=== PATIENT | male | born 1940 | race Caucasian/White ===

== ENCOUNTER 2020-07-07 07:10 | Outpatient (REF) | payer MEDICARE, SELFPAY ==
[2020-07-07 10:31] LABS: Prostate Specific Antigen 0.84 ng/mL (<0.05-4.0)
== END 2020-07-07 07:11 | disposition home or self-care (01) ==
LOC: HO.LAB 07:10
PROVIDERS: Visit Provider Urology
DX: N40.1 Benign prostatic hyperplasia with lower urinary tract symptoms (principal)
CPT/HCPCS: 84153

== ENCOUNTER → 2020-09-01 09:56 | Outpatient (BNVA) | payer MEDICARE, SELFPAY | PROVIDERS: Visit Provider Internal Medicine | DX: G47.33 Obstructive sleep apnea (adult) (pediatric) (principal); E66.9 Obesity, unspecified; Z99.89 Dependence on other enabling machines and devices | CPT/HCPCS: 99212 ==

== ENCOUNTER 2020-10-03 06:59 | Outpatient (REF) | payer MEDICARE, SELFPAY ==
[2020-10-03 07:44] LABS: MANUAL DIFF FLAG NO
[2020-10-03 07:47] LABS: Basophils Percent Auto 0.4 % (0-2); Eosinophils Absolute Auto 0.2 X10*3/uL (0.0-0.4); Eosinophils Percent Auto 2.8 % (0-4); Hematocrit 54.1 % (42-52); Hemoglobin 18.1 g/dl (14.0-18.0); Imm Gran Abs Auto 0.03 X10*3/uL (0.00-0.03); Imm Gran Pct Auto 0.4 % (0.0-0.4); Lymphocytes Absolute Auto 1.9 X10*3/uL (1.2-4.9); Lymphocytes Percent Auto 27.4 % (20-40); Mean Corpuscular HGB Conc 33.5 g/dl (31.0-36.0); Mean Corpuscular Hemoglobin 31.8 pg (27.0-33.0); Mean Corpuscular Volume 95.1 fL (80-98); Monocytes Absolute Auto 0.5 X10*3/uL (0.1-1.2); Neutrophils Absolute Auto 4.1 X10*3/uL (2.0-8.3); Platelet Count 177 X10*3/uL (160-400); Red Blood Count 5.69 X10*6/uL (4.60-5.80); Red Cell Distribution Width 13.1 % (11.0-16.0); White Blood Count 6.8 X10*3/uL (4.8-10.8)
[2020-10-03 08:01] LABS: Anion Gap 15 (12-20); Blood Urea Nitrogen 14 mg/dL (9-16); Calcium 9.2 mg/dL (8.4-10.2); Carbon Dioxide 27 mmol/L (22-29); Chloride 104 mmol/L (96-108); Estimated Glomerular Filt Rate > 60; Glucose Random 111 mg/dL (60-115); Potassium 4.1 mmol/l (3.3-5.1); Sodium 142 mmol/L (135-145)
== END 2020-10-03 07:00 | disposition home or self-care (01) ==
LOC: HO.LAB 06:59
PROVIDERS: Visit Provider Internal Medicine
DX: I10 Essential (primary) hypertension (principal); N40.0 Benign prostatic hyperplasia without lower urinary tract symptoms; E78.00 Pure hypercholesterolemia, unspecified
CPT/HCPCS: 36415; 80048; 85025

== ENCOUNTER 2021-01-22 11:25 | Outpatient (REF) | payer MEDICARE, SELFPAY ==
[2021-01-22 14:14] LABS: MANUAL DIFF FLAG NO
[2021-01-22 14:24] LABS: Basophils Percent Auto 0.5 % (0-2); Eosinophils Absolute Auto 0.1 X10*3/uL (0.0-0.4); Eosinophils Percent Auto 1.2 % (0-4); Hematocrit 52.7 % (42-52); Hemoglobin 17.6 g/dl (14.0-18.0); Imm Gran Abs Auto 0.04 X10*3/uL (0.00-0.03); Imm Gran Pct Auto 0.5 % (0.0-0.4); Lymphocytes Absolute Auto 1.4 X10*3/uL (1.2-4.9); Lymphocytes Percent Auto 18.2 % (20-40); Mean Corpuscular HGB Conc 33.4 g/dl (31.0-36.0); Mean Corpuscular Hemoglobin 31.5 pg (27.0-33.0); Mean Corpuscular Volume 94.4 fL (80-98); Mean Platelet Volume 10.1 fL (9.4-12.4); Monocytes Absolute Auto 0.6 X10*3/uL (0.1-1.2); Monocytes Percent Auto 7.6 % (2-11); Neutrophils Absolute Auto 5.4 X10*3/uL (2.0-8.3); Platelet Count 173 X10*3/uL (160-400); Red Blood Count 5.58 X10*6/uL (4.60-5.80); White Blood Count 7.5 X10*3/uL (4.8-10.8)
[2021-01-22 14:47] LABS: Alanine Aminotransferase 35 U/L (0-40); Albumin Level 3.9 g/dL (3.5-5.0); Alkaline Phosphatase 73 U/L (39-117); Anion Gap 13 (12-20); Aspartate Amino Transferase 27 U/L (5-37); Blood Urea Nitrogen 18 mg/dL (9-16); C Reactive Protein 1.14 mg/dL (< or = 0.50); Calcium 9.5 mg/dL (8.4-10.2); Carbon Dioxide 28 mmol/L (22-29); Chloride 105 mmol/L (96-108); Estimated Glomerular Filt Rate > 60; Glucose Random 100 mg/dL (60-115); Potassium 3.8 mmol/L (3.3-5.1); Sodium 142 mmol/L (135-145); Total Protein 7.1 g/dL (6.5-8.0)
== END 2021-01-22 11:26 | disposition home or self-care (01) ==
LOC: HO.10HDL 11:25
PROVIDERS: Visit Provider Internal Medicine
DX: I10 Essential (primary) hypertension (principal); R42 Dizziness and giddiness
CPT/HCPCS: 36415; 80053; 85025; 86140

== ENCOUNTER 2021-01-27 07:20 | Outpatient (REF) | payer MEDICARE, SELFPAY ==
--- NOTE | ~2021-01-27 | CT_ITS ---
EXAMINATION: CT HEAD WITHOUT CONTRAST CLINICAL INFORMATION: Right-sided vertigo. COMPARISON: Previous brain MRI March 2020. TECHNIQUE: Contiguous axial imaging was performed from the skull base to vertex without intravenous administration of contrast. This CT examination was performed using dose optimization techniques as appropriate, variously including the following: *Automated exposure control *Adjustment of mA and/or kV according to patient size (this includes techniques or standardized protocols for targeted exams where dose is matched to indication/reason for exam; i.e. extremities or head) *Use of iterative reconstruction technique DLP: 905 mGy-cm. FINDINGS: There is no evidence of an extra-axial collection. There is no evidence of intra-axial or extra-axial hemorrhage. Ventricles and extra-axial CSF spaces are prominent suggestive of mild generalized atrophy. There is nonspecific periventricular white matter disease. No mass, mass effect or infarct is seen. Review of bone windows is normal. There is a small polyp or mucous retention cysts in the right maxillary sinus. Visualized paranasal sinuses, mastoid air cells and middle ears are otherwise clear. CT/CT head/brain wo con IMPRESSION: Mild generalized atrophy and nonspecific periventricular white matter disease. No acute findings.
== END 2021-01-27 07:21 | disposition home or self-care (01) ==
LOC: HO.CT 07:20
PROVIDERS: PCP Internal Medicine; Visit Provider Internal Medicine
DX: H81.11 Benign paroxysmal vertigo, right ear (principal)
CPT/HCPCS: 70450

== ENCOUNTER 2021-03-09 08:00 | Outpatient (RCR) | payer MEDICARE, SELFPAY ==
[2021-03-03 10:18] VITALS: BP 125/75
--- NOTE | 2021-03-03 12:13 | MHC.PT.EP ---
[facility] [place] Office [place] Office [place] Office [address] [phone] F: [phone] F: [phone] F: [phone] F: [phone] Physical Therapy Plan of Care Date of Evaluation: Date of Surgery: NA Diagnosis: Vestibular rehab Assessment: Jon is a 80 year old male referred to PT for vestibular rehab . Pt reports of having sudden onset of vertigo about a month and half back. On PT examination he presented with nystgmus when looking to the L during smooth pursuit and saccades testing. He was positive in B roll test for nystagmus and vertigo. He is independent with all ADLS but avoids rolling in the bed to the R. He would benefit from skilled PT to address the aforementioned impairments and increase tolerance to rolling and looking to the R. Frequency and Duration: The patient will be seen 2/week for 4 weeks Short Term Goals: Patient to be educated on symptoms and indications to return to therapy when needed min 4 weeks. Pt will be negative for nystagmus or reports of vertigo in all diagnostic positions bilaterally to resolution of BPPV in 4 weeks. Long-Term Goals: Patient to be able to functionally move in all planes and directions without provocation of dizziness to show return to PLOF in 6 weeks. Treatment Plan: Modalities to reduce pain, spasms and effusion. Manual therapy to restore motion and function. Therapeutic exercise to improve strength and flexibility. Neuromuscular re-education for posture and balance. Therapeutic activities to return to functional activities of daily living. Electronically signed by: Letty Moreno PT DPT Please sign and return to therapist. Thank you for your referral.
--- NOTE | 2021-04-10 15:04 | MHC.PT.DC ---
[facility] [place] Office [place] Office [place] Office [address] [phone] F: [phone] F: [phone] F: [phone] F: [phone] Physical Therapy Discharge Report Diagnosis: Vestibular rehab Date of Surgery: NA Date of Evaluation: 03/03/21 Date of Discharge: 04/10/21 Treatments to Date: 5 Cancellations to Date: 0 No Shows to Date: 0 Discharge Status: Achieved Goals Improved Function Independent with HEP Discharge Summary: Jon has been asymptomatic for over a month. He has therefore been discharged from therapy. Electronically signed by: Letty Moreno PT DPT Please sign and return to therapist. Thank you for your referral.
== END 2021-04-10 15:05 | disposition home or self-care (01) ==
LOC: HO.PT 08:00
PROVIDERS: PCP Internal Medicine; Visit Provider Internal Medicine
DX: H81.11 Benign paroxysmal vertigo, right ear (principal); H83.01 Labyrinthitis, right ear
CPT/HCPCS: 95992; 97112; 97162

== ENCOUNTER → 2021-09-07 09:14 | Outpatient (BNVA) | payer MEDICARE, SELFPAY | PROVIDERS: PCP Internal Medicine; Visit Provider Internal Medicine | DX: G47.33 Obstructive sleep apnea (adult) (pediatric) (principal); E66.9 Obesity, unspecified; Z99.89 Dependence on other enabling machines and devices; Z68.34 Body mass index [BMI] 34.0-34.9, adult | CPT/HCPCS: 99212 ==

== ENCOUNTER 2021-09-28 07:35 | Outpatient (REF) | payer MEDICARE, SELFPAY ==
[2021-09-28 11:10] LABS: Prostate Specific Antigen 0.82 ng/mL (<0.05-4.0)
== END 2021-09-28 07:36 | disposition home or self-care (01) ==
LOC: HO.10HDL 07:35
PROVIDERS: Visit Provider Urology
DX: Z12.5 Encounter for screening for malignant neoplasm of prostate (principal); N40.1 Benign prostatic hyperplasia with lower urinary tract symptoms
CPT/HCPCS: 36415; 84153

== ENCOUNTER 2021-10-26 06:59 | Outpatient (REF) | payer MEDICARE, SELFPAY ==
[2021-10-26 07:12] LABS: MANUAL DIFF FLAG NO
[2021-10-26 07:25] LABS: Basophils Percent Auto 0.4 % (0-2); Eosinophils Absolute Auto 0.3 X10*3/uL (0.0-0.4); Eosinophils Percent Auto 4.5 % (0-4); Hematocrit 52.6 % (42.0-52.0); Hemoglobin 17.6 g/dl (14.0-18.0); Imm Gran Abs Auto 0.02 X10*3/uL (0.00-0.03); Imm Gran Pct Auto 0.3 % (0.0-0.4); Lymphocytes Absolute Auto 1.6 X10*3/uL (1.2-4.9); Lymphocytes Percent Auto 22.8 % (20-40); Mean Corpuscular HGB Conc 33.5 g/dl (31.0-36.0); Mean Corpuscular Hemoglobin 31.9 pg (27.0-33.0); Mean Corpuscular Volume 95.3 fL (80.0-98.0); Mean Platelet Volume 9.8 fL (9.4-12.4); Monocytes Absolute Auto 0.6 X10*3/uL (0.1-1.2); Monocytes Percent Auto 8.8 % (2-11); Neutrophils Absolute Auto 4.5 x10*3/uL (2.0-8.3); Neutrophils Percent Auto 63.2 % (45-73); Platelet Count 158 X10*3/uL (160-400); Red Blood Count 5.52 X10*6/uL (4.60-5.80); Red Cell Distribution Width 13.1 % (11.0-16.0); White Blood Count 7.1 X10*3/uL (4.8-10.8)
[2021-10-26 07:50] LABS: Alanine Aminotransferase 33 U/L (0-40); Albumin Level 3.8 g/dL (3.5-5.0); Alkaline Phosphatase 65 U/L (39-117); Anion Gap 11 (12-20); Aspartate Amino Transferase 27 U/L (5-37); Bilirubin Total 1.4 mg/dL (0.0-1.0); Blood Urea Nitrogen 17 mg/dL (9-16); Calcium 9.5 mg/dL (8.4-10.2); Carbon Dioxide 28 mmol/L (22-29); Chloride 105 mmol/L (96-108); Cholesterol 156 mg/dL; Estimated Glomerular Filt Rate > 60; Glucose Fasting 117 mg/dL (60-99); HDL Cholesterol 51 mg/dL; LDL Cholesterol Calculated 86 mg/dl; Potassium 4.2 mmol/L (3.3-5.1); Sodium 140 mmol/L (135-145); Total Protein 7.1 g/dL (6.5-8.0); Triglycerides 97 mg/dL
[2021-10-26 08:11] LABS: Prostate Specific Antigen 0.86 ng/mL (<0.05-4.0)
== END 2021-10-26 07:00 | disposition home or self-care (01) ==
LOC: HO.LAB 06:59
PROVIDERS: PCP Internal Medicine; Visit Provider Internal Medicine
DX: Z12.5 Encounter for screening for malignant neoplasm of prostate (principal); I10 Essential (primary) hypertension; E78.00 Pure hypercholesterolemia, unspecified; N40.0 Benign prostatic hyperplasia without lower urinary tract symptoms; G47.33 Obstructive sleep apnea (adult) (pediatric)
CPT/HCPCS: 36415; 80053; 80061; 84153; 85025

== ENCOUNTER 2022-01-13 07:54 | Emergency (ER) | payer MEDICARE, SELFPAY ==
--- NOTE | ~2022-01-13 | XR_ITS ---
EXAMINATION: XR SHOULDER, RIGHT CLINICAL INFORMATION: Right shoulder pain status post fall. COMPARISON: None TECHNIQUE: Three views of the right shoulder. FINDINGS: The bones and soft tissues are normal. No fracture. Glenohumeral and acromioclavicular alignment is anatomic. Mild right glenohumeral degenerative joint changes are seen. No abnormal soft tissue calcifications. XR/XR shoulder RT min 2V IMPRESSION: Mild right glenohumeral degenerative joint changes without acute fracture.
--- NOTE | ~2022-01-13 | CT_ITS ---
EXAM: Contrast-enhanced CT scan of the chest, abdomen, and pelvis. INDICATION: Right rib and right upper quadrant pain after fall. COMPARISON: Abdominal ultrasound 05/10/2017 TECHNIQUE: Multidetector helical imaging of the chest, abdomen, and pelvis was obtained from the thoracic inlet through the pubic symphysis following administration of 85 cc of Omnipaque 350 IV contrast. Coronal and sagittal reformatted images that were obtained were also reviewed. DLP: 1287 mGy-cm FINDINGS: CHEST: Central airways are patent. Lungs are well aerated. There is minimal lingular and dependent atelectasis. There is no lobar consolidation present. There is no pleural effusion or pneumothorax. No suspicious pulmonary nodules. The heart is normal in size. There is no pericardial effusion. Coronary artery calcifications are present. Normal caliber thoracic aorta. No gross mediastinal lymphadenopathy. No pathologically enlarged axillary lymph nodes. ABDOMEN/PELVIS: The liver and gallbladder are normal in appearance. The pancreas, spleen and adrenal glands are unremarkable. Symmetrically enhancing kidneys. There is no hydronephrosis of either kidney. Bilateral renal cysts are noted. Normal caliber loops of small and large bowel. Mild colonic diverticulosis without CT evidence to suggest active diverticulitis. Small fat-containing umbilical hernia. Normal caliber abdominal aorta which demonstrates moderate atherosclerotic disease. The bladder is normal in appearance. Prostate gland is mildly enlarged. Small fat-containing inguinal hernias bilaterally. No gross free pelvic fluid. No inguinal lymphadenopathy. OSSEOUS STRUCTURES Moderate diffuse degenerative changes of the spine. CT/CT abdomen pelvis w con IMPRESSION: 1. No CT evidence for acute abnormality within the chest, abdomen or pelvis. 2. Bilateral renal cysts. 3. Mild colonic diverticulosis. This CT examination was performed using dose optimization techniques as appropriate, variously including the following: *Automated exposure control *Adjustment of mA and/or kV according to patient size (this includes techniques or standardized protocols for targeted exams where dose is matched to indication/reason for exam; i.e. extremities or head) *Use of iterative reconstruction technique
[2022-01-13 08:06] VITALS: BP 167/83; PULSE 72; RESP 18; TEMP 36.4; O2SAT 94; BMI 34.6
--- NOTE | 2022-01-13 08:20 | ECG_ITS ---
Test Reason : fall Blood Pressure : / mmHG Vent. Rate : 063 BPM Atrial Rate : 063 BPM P-R Int : 258 ms QRS Dur : 110 ms QT Int : 428 ms P-R-T Axes : 083 000 005 degrees QTc Int : 437 ms Sinus rhythm with sinus arrhythmia with 1st degree A-V block Inferior infarct , age undetermined Abnormal ECG No previous ECGs available Referred By: Gissell Sherman Electronically Signed By:CADY ACEVEDO
--- NOTE | 2022-01-13 08:22 | ED.FALL ---
HPI - Fall General Chief Complaint: Fall Stated Complaint: Fall/Shoulder pain R side pain Time Seen by Provider: 01/13/22 08:20 Source: patient and family Mode of arrival: ambulatory Limitations: no limitations History of Present Illness HPI Narrative: 81 y/o male with history of HTN, HLD, obesity, ROXY on CPAP who presents to the ER with right-sided shoulder pain and right rib pain after he sustained a mechanical fall last night around 19:00. He states he was cleaning his CPAP machine when he turned quickly and tripped over his own feet falling against the wall and down to the ground. He thinks he may have hit his head but did not lose consciousness. He states the brunt of his injury and fall was to his right shoulder and right lower ribs. He slept ?okay? last night after taking some Tylenol. This morning when he went to get up out of bed he had worsening pain to the right shoulder and right lower ribs so he decided come to the ER for further evaluation. He denies any anterior chest pain or shortness of breath. No headache. He states he was seen by a neurologist several years ago after a fall, told he had right-sided weakness, denies history of stroke. He states his last fall prior to this was in September. He lives at home with his . complaint: fall Onset (ago): day(s) (1) Fall from: standing Fall witnessed: no Place fall occurred: home Loss of consciousness: none Prolonged down time: no Context: tripped/slipped Location of injury: chest and back Location of injury - extremities: right: shoulder Severity: moderate Severity scale (1-10): 7 Quality: sharp and aching Associated symptoms (after fall): denies Related Data Home Medications Medication Instructions Recorded Confirmed aspirin 81 mg tablet,delayed 162 mg PO DAILY 09/01/20 release ezetimibe 10 mg tablet 10 mg PO DAILY 09/01/20 finasteride 5 mg tablet 5 mg PO DAILY 09/01/20 lisinopril 10 mg tablet 10 mg PO DAILY 09/01/20 omega-3 fatty acids 1,000 mg 1,000 mg PO DAILY 09/01/20 capsule (Fish Oil Concentrate) brimonidine 0.2 % eye drops 0 drp OPHTHALMIC (EYE) 09/07/21 meclizine 25 mg tablet 25 mg PO BID PRN 09/07/21 Allergies Allergy/AdvReac Type Severity Reaction Status Date / Time No Known Allergies Allergy Verified 09/07/21 09:34 Review of Systems Review of Systems: Constitutional: No Fever, No Chills ENT/Mouth: No sore throat, No Rhinorrhea, No Swallowing Difficulty Eyes: No vision changes Cardiovascular: No Chest Pain, No SOB Respiratory: No Cough, No Sputum, No Wheezing, No dyspnea Gastrointestinal: No Nausea, No Vomiting, No Diarrhea, No abdominal Pain Genitourinary: No Hematuria Musculoskeletal: + joint pain, + Myalgias Skin: No Skin Lesions, No rash Neuro: No Weakness, No Numbness, No Dizziness, No Headache Psych: No Anxiety/Panic, No Depression Heme/Lymph: No Bruising, No Lymphadenopathy Endocrine: No Polyuria, No Polydipsia PMFSH Past Medical History Medical History Obesity ROXY on CPAP Social History Social History Advance Directives: No Physical Exam Vital Signs: Vital Signs: Last Vital Signs Temp 98.4 F 01/13/22 11:50 Pulse 72 01/13/22 11:50 Resp 14 01/13/22 11:50 BP 160/89 H 01/13/22 11:50 Pulse Ox 96 01/13/22 11:50 BMI result Body Mass Index 34.6 Appearance: Alert. Oriented X3. No acute distress. Eyes: Pupils equal, round and reactive to light. ENT: Pharynx normal. Neck: Normal inspection. Neck supple. CVS: Normal heart rate and rhythm. Pulses normal. Respiratory: No respiratory distress. Breath sounds normal. Tenderness to right lower ribs both anteriorly and posteriorly. Abdomen: Soft with moderate RUQ tenderness. +BS x4 Skin: Skin warm and dry. Normal skin color. Normal skin turgor. No rashes. Extremities: No lower extremity edema. Atraumatic LE. Right shoulder held in adduction. Tender anteriorly and posterioly, most at the AC joint, able to abduct to 90 degrees with minimal pain and then pain with movement to 150 degrees. Neuro: Oriented X 3. Mild right sided weakness noted in RUE. Course Course Course Narrative: 81 y/o male presenting with right shoulder pain and right lower rib pain s/p fall last night. Will get CT scans to evaluate for trauamtic injuries. Reevaluation(s) Reevaluation #1: CT scans showing no acute traumatic injuries. XR of the right shoulder is still pending. Reevaluation #2: XR shoulder is normal. Stable for d/c with outpatient follow up with PCP. MDM - Fall Medical Records Attestation: I reviewed the patient's medical records. Lab Data Attestation: I reviewed the patient's lab results. Result diagrams: 01/13/22 08:54 01/13/22 08:54 Labs: Lab Results 01/13/22 01/13/22 01/13/22 Range/Units 08:54 08:54 09:33 WBC 8.7 (4.8-10.8) X10*3/uL RBC 5.58 (4.60-5.80) X10*6/uL Hgb 17.5 (14.0-18.0) g/dl Hct 51.9 (42.0-52.0) % MCV 93.0 (80.0-98.0) fL MCH 31.4 (27.0-33.0) pg MCHC 33.7 (31.0-36.0) g/dl RDW 13.3 (11.0-16.0) % Plt Count 166 (160-400) X10*3/uL MPV 9.8 (9.4-12.4) fL Immature Gran % (Auto) 0.2 (0.0-0.4) % Neut % (Auto) 79.2 H (45-73) % Lymph % (Auto) 11.4 L (20-40) % Sharkey % (Auto) 8.0 (2-11) % Eos % (Auto) 0.9 (0-4) % Baso % (Auto) 0.3 (0-2) % Lymph # (Auto) 1.0 L (1.2-4.9) X10*3/uL Sharkey # (Auto) 0.7 (0.1-1.2) X10*3/uL Eos # (Auto) 0.1 (0.0-0.4) X10*3/uL Baso # (Auto) 0.0 (0.0-0.2) X10*3/uL Abs Immat Gran (auto) 0.02 (0.00-0.03) X10*3/uL Absolute Neuts (auto) 6.8 (2.0-8.3) x10*3/uL Absolute Nucleated RBC 0.000 (0.0-0.012) X10*3/uL Nucleated RBC % (auto) 0.0 (0.0-0.2) /100WBC Sodium 142 (135-145) mmol/L Potassium 5.2 H D (3.3-5.1) mmol/L Chloride 107 (96-108) mmol/L Carbon Dioxide 30 H (22-29) mmol/L Anion Gap 10 L (12-20) BUN 13 (9-16) mg/dL Creatinine 1.10 (0.5-1.4) mg/dL Estim Creat Clear Calc 69.1 Estimated GFR > 60 Random Glucose 120 H (60-115) mg/dL Calcium 9.5 (8.4-10.2) mg/dL Magnesium 2.1 (1.6-2.6) mg/dL Total Bilirubin 1.3 H (0.0-1.0) mg/dL Direct Bilirubin 0.5 (0.0-0.5) mg/dL AST 28 (5-37) U/L ALT 31 (0-40) U/L Alkaline Phosphatase 64 (39-117) U/L Total Protein 7.0 (6.5-8.0) g/dL Albumin 3.7 (3.5-5.0) g/dL Urine Color YELLOW Urine Appearance CLEAR Urine pH 6.0 (5.0-8.0) Ur Specific [place] 1.015 (1.005-1.025) Urine Protein NEG (NEG-TRACE) MG/DL Urine Glucose (UA) NEG (NEG) MG/DL Urine Ketones NEG (NEG) MG/DL Urine Blood TRACE (NEG) Urine Nitrite NEG (NEG) Ur Leukocyte Esterase NEG (NEG) Urine RBC 1-4 (0) /HPF Urine WBC 0 (0-4) /HPF Ur Squamous Epith Cells NONE /LPF Urine Bacteria NONE /LPF ECG Data Attestation: I personally reviewed and interpreted this ECG as follows: ECG interpretation date: 01/13/22 ECG interpretation time: 09:46 Interpretation: sinus rhythm with 1st degree AV block, HR 63 bpm, IL interval prolonged 258 ms, no ST segment elevations or depressions. Critical Care Time Critical Care Time Critical Care Time: No Discharge Plan Discharge Clinical Impression: Fall with no significant injury Patient Disposition: Home, Self-Care Instructions: Shoulder Pain (ED) Additional Instructions: Your CT scans did not show any trauamtic injuries. Your x-ray showed a normal shoulder. You most likely have a mild shoulder sprain or strain. Take Tylenol 975 mg every 6 hours as needed for pain, or Motrin 400-600 mg (take with food) Follow up with your doctor, you may benefit from physical therapy If you develop new or worsening symptoms call 911 or come back to the ER for further evaluation. Prescriptions: No Action finasteride 5 mg tablet 5 mg PO DAILY 0RF ezetimibe 10 mg tablet 10 mg PO DAILY 0RF lisinopril 10 mg tablet 10 mg PO DAILY 0RF omega-3 fatty acids [Fish Oil Concentrate] 1,000 mg capsule 1,000 mg PO DAILY 0RF aspirin 81 mg tablet,delayed release (DR/EC) 162 mg PO DAILY 0RF brimonidine 0.2 % drops 0 drp ophthalmic (eye) 0RF meclizine 25 mg tablet 25 mg PO BID [id number] Referrals: Chad Funk MD [Primary Care Provider] - 1 week (s/p fall - shoulder pain )
[2022-01-13] MEDS: Acetaminophen 325 MG TABLET 975 MG PO (08:54)
[2022-01-13 08:59] LABS: MANUAL DIFF FLAG NO
[2022-01-13 09:00] LABS: Basophils Percent Auto 0.3 % (0-2); Eosinophils Absolute Auto 0.1 X10*3/uL (0.0-0.4); Eosinophils Percent Auto 0.9 % (0-4); Hematocrit 51.9 % (42.0-52.0); Hemoglobin 17.5 g/dl (14.0-18.0); Imm Gran Abs Auto 0.02 X10*3/uL (0.00-0.03); Imm Gran Pct Auto 0.2 % (0.0-0.4); Lymphocytes Percent Auto 11.4 % (20-40); Mean Corpuscular HGB Conc 33.7 g/dl (31.0-36.0); Mean Corpuscular Hemoglobin 31.4 pg (27.0-33.0); Mean Platelet Volume 9.8 fL (9.4-12.4); Monocytes Absolute Auto 0.7 X10*3/uL (0.1-1.2); Neutrophils Absolute Auto 6.8 x10*3/uL (2.0-8.3); Neutrophils Percent Auto 79.2 % (45-73); Platelet Count 166 X10*3/uL (160-400); Red Blood Count 5.58 X10*6/uL (4.60-5.80); Red Cell Distribution Width 13.3 % (11.0-16.0); White Blood Count 8.7 X10*3/uL (4.8-10.8)
[2022-01-13 09:27] LABS: Alanine Aminotransferase 31 U/L (0-40); Albumin Level 3.7 g/dL (3.5-5.0); Alkaline Phosphatase 64 U/L (39-117); Anion Gap 10 (12-20); Aspartate Amino Transferase 28 U/L (5-37); Bilirubin Direct 0.5 mg/dL (0.0-0.5); Bilirubin Total 1.3 mg/dL (0.0-1.0); Blood Urea Nitrogen 13 mg/dL (9-16); Calcium 9.5 mg/dL (8.4-10.2); Carbon Dioxide 30 mmol/L (22-29); Chloride 107 mmol/L (96-108); Creatinine Clr Calc Pharmacy 69.1; Estimated Glomerular Filt Rate > 60; Glucose Random 120 mg/dL (60-115); Magnesium 2.1 mg/dL (1.6-2.6); Potassium 5.2 mmol/L (3.3-5.1); Sodium 142 mmol/L (135-145)
[2022-01-13 09:45] LABS: Appearance Urine CLEAR; Color Urine YELLOW; Glucose Urine UA NEG (NEG); Leukocyte Esterase Urine NEG (NEG); Nitrite Urine NEG (NEG); Specific Gravity - Urine 1.015 (1.005-1.025); UACC Culture Trigger NO; Urine Blood TRACE (NEG); Urine Ketones NEG (NEG); Urine Protein NEG (NEG-TRACE)
[2022-01-13 10:01] LABS: WBC Urine 0 /HPF (0-4)
[2022-01-13] MEDS: iohexoL 350 MG/ML 100 ML INFUS..BTL IV (10:31)
[2022-01-13 11:50] VITALS: BP 160/89; PULSE 72; RESP 14; TEMP 36.9; O2SAT 96
== END 2022-01-13 15:19 | disposition home or self-care (01) ==
PROVIDERS: Physician Assistant; Emergency Provider Emergency Medicine; PCP Internal Medicine
DX: M25.511 Pain in right shoulder (principal); R07.81 Pleurodynia; I10 Essential (primary) hypertension; G47.33 Obstructive sleep apnea (adult) (pediatric); Z91.81 History of falling; Z99.89 Dependence on other enabling machines and devices
CPT/HCPCS: 36415; 71260; 73030; 74177; 80048; 80076; 81001; 83735; 85025; 93005; 99284; 99285; Q9967

== ENCOUNTER 2022-01-30 08:13 | Emergency (ER) | payer MEDICARE, SELFPAY ==
--- NOTE | ~2022-01-30 | XR_ITS ---
EXAMINATION: XR PELVIS CLINICAL INFORMATION: SI joint pain and injury COMPARISON: CT abdomen pelvis January 13, 2022 and bilateral hip x-rays with AP pelvis April 25, 2020 TECHNIQUE: AP view of the pelvis. FINDINGS: Pelvic ring is intact. Sacroiliac joints are symmetric. There are mild degenerative changes of both hips without fracture or dislocation. Visualized portions of the lower lumbar spine demonstrate degenerative changes. XR/XR pelvis 1-2V IMPRESSION: No fracture.
[2022-01-30 08:25] VITALS: BP 130/72; BP 158/83; PULSE 78; PULSE 84; RESP 18; TEMP 36.6; O2SAT 94; BMI 32.3
[2022-01-30 08:30] VITALS: BP 158/83; PULSE 78; RESP 18; TEMP 36.6; O2SAT 94
--- NOTE | 2022-01-30 09:19 | ED_ITS ---
HPI - General Adult General Chief complaint: Back Pain/Injury Stated complaint: back pain while getting on his slacks Time Seen by Provider: 01/30/22 09:13 Source: patient and old records reviewed Mode of arrival: ambulatory Limitations: no limitations History of Present Illness HPI narrative: 81-year-old male came in by ambulance for evaluation of low back pain. Patient woke up this morning was trying to tie his shoe when he started to pain in the left lower back that was sudden patient describe it as a sudden strong electrical shock that made him fall down, patient was trying to ease the fall but could not, patient declined head or neck injury. no other complaint. Recent abdominal CT of the abdomen and pelvis shows no evidence of AAA. Related Data Home Medications Medication Instructions Recorded Confirmed aspirin 81 mg tablet,delayed 162 mg PO DAILY 09/01/20 release ezetimibe 10 mg tablet 10 mg PO DAILY 09/01/20 finasteride 5 mg tablet 5 mg PO DAILY 09/01/20 lisinopril 10 mg tablet 10 mg PO DAILY 09/01/20 omega-3 fatty acids 1,000 mg 1,000 mg PO DAILY 09/01/20 capsule (Fish Oil Concentrate) brimonidine 0.2 % eye drops 0 drp OPHTHALMIC (EYE) 09/07/21 meclizine 25 mg tablet 25 mg PO BID PRN 09/07/21 Allergies Allergy/AdvReac Type Severity Reaction Status Date / Time No Known Allergies Allergy Verified 09/07/21 09:34 Review of Systems Review of Systems: All other systems are reviewed and are negative Constitutional: Reports as per HPI and Reports no additional constitutional complaints Eyes: Reports as per HPI and Reports no additional eye complaints Reports system reviewed and no additional complaints, except as documented Cardiovascular: Reports as per HPI and Reports no additional cardiovascular complaints Respiratory: Reports as per HPI and Reports no additional respiratory complaints Gastrointestinal: Reports as per HPI and Reports no additional gastrointestinal complaints Genitourinary: Reports no additional female genitourinary complaints Musculoskeletal: Reports no additional musculoskeletal complaints Skin/Breast: Reports system reviewed and no additional complaints, except as docu Psychiatric: Reports no additional psychiatric complaints Endocrine: Reports no additional endocrine complaints Hematologic/Lymphatic: Reports no additional hematologic/lymphatic complaints Allergic/Immunologic: Reports no additional allergic/immunologic complaints Reports system reviewed and no additional complaints, except as documented and Reports Abnormal speech present [facility] Past Medical History Medical History (Reviewed 01/30/22 @ 09: by Juan Turner MD) Obesity ROXY on CPAP Social History Social History Advance Directives: Yes Advance Directives Information Provided: No Advance Directives on File: No Physical Exam ED Vital Signs: Vital Signs - 24 hr 01/30/22 08:25 01/30/22 08:30 Temperature 97.9 F 97.9 F Pulse Rate 78 78 Respiratory Rate 18 18 Blood Pressure 158/83 H 158/83 H Pulse Oximetry 94 94 BMI result Body Mass Index 32.3 vital signs have been reviewed as appeared to be correct. Blood pressure normal. Heart rate normal. Respiration rate normal. Temperature normal. Oxygen saturation normal. Appearance: Alert. Oriented X3. No acute distress. Head: Normal external exam. Normocephalic. Atraumatic. No Dye signs noted. No raccoon eyes noted Eyes: PERRLA. EOMI. Conjunctiva and sclera normal. Eyelids normal. ENT: TM's Normal. Pharynx normal. Uvula midline. Moist mucous membranes. No trismus noted. No drooling noted. No muffled voice noted. Neck: Normal inspection. Neck supple. FROM. No adenopathy. Thyroid Normal. No meningeal signs. No neck mass noted. CVS: Normal heart rate and rhythm. Heart sound normal. No murmurs noted. Pulses normal throughout. Respiratory: No respiratory distress. Painless inspiration. Breath sounds normal. No wheezes/rales/rhonchi noted. Chest nontender. No accessory muscle usage noted or decreased air movement noted. Abdomen: Soft and nontender. Bowel sounds normal in all 4 quadrants. No distention noted. No organomegaly noted. No visible injury noted. Back: No CVA tenderness. Full range of motion noted. Tenderness over left SI joint, no step-off, no deformity. Skin: Skin warm and dry. Normal skin color. Normal skin turgor. No rashes/lesions/lacerations noted. Extremities: No lower extremity edema. Extremities exhibit normal range of motion. Extremities nontender. Neuro: Oriented X 3. Cranial nerve exam: II-XII are grossly intact No motor deficit. No sensory deficit. Reflexes normal. Course Course Course Narrative: assessment and plan. 81-year-old male physical exam and x-ray are consistent with left SI joint strain, patient at risk of fall due to severe pain and the left SI, patient had a recent CT of the abdomen showing no AAA or any other pathology to explain today's patient symptoms. UA is unremarkable. Will control pain with analgesia patient will be under physician observation in the emergency department until PT evaluation and Case Management evaluation for possible short-term rehab. Reevaluation(s) Reevaluation #1: Physician observation started at 14:30 . Patient placed in physician observation because the patient needed more time for medication to work and to see PT/case management for evaluation and placement patient's vital sign were stable, patient is alert and oriented , neuro exam unchanged, unremarkable rest of physical exam. Time: 14:36 Medical Decision Making Lab Data Labs: Lab Results 01/30/22 Range/Units 10:04 Urine Color YELLOW Urine Appearance HAZY Urine pH 6.5 (5.0-8.0) Ur Specific [place] 1.020 (1.005-1.025) Urine Protein NEG (NEG-TRACE) MG/DL Urine Glucose (UA) NEG (NEG) MG/DL Urine Ketones NEG (NEG) MG/DL Urine Blood NEG (NEG) Urine Nitrite NEG (NEG) Ur Leukocyte Esterase NEG (NEG) Discharge Plan Discharge Clinical Impression: Strain of lumbar region, Pain of left sacroiliac joint Prescriptions: No Action finasteride 5 mg tablet 5 mg PO DAILY 0RF ezetimibe 10 mg tablet 10 mg PO DAILY 0RF lisinopril 10 mg tablet 10 mg PO DAILY 0RF omega-3 fatty acids [Fish Oil Concentrate] 1,000 mg capsule 1,000 mg PO DAILY 0RF aspirin 81 mg tablet,delayed release (DR/EC) 162 mg PO DAILY 0RF brimonidine 0.2 % drops 0 drp ophthalmic (eye) 0RF meclizine 25 mg tablet 25 mg PO BID [id number]
[2022-01-30 10:20] LABS: Appearance Urine HAZY; Color Urine YELLOW; Glucose Urine UA NEG (NEG); Leukocyte Esterase Urine NEG (NEG); Nitrite Urine NEG (NEG); PH 6.5 (5.0-8.0); Urine Blood NEG (NEG); Urine Ketones NEG (NEG); Urine Protein NEG (NEG-TRACE)
[2022-01-30] MEDS: Ibuprofen 600 MG TABLET PO (11:14)
[2022-01-30] MEDS: oxyCODONE HCl Immed Release 5 MG TABLET PO (11:14)
--- NOTE | 2022-01-30 13:55 | PC.NURSE ---
ATTEMPT TO GET PATIENT OOB TO AMBULATE,HE IS ABLE TO GET TO STAND WITH MODERATE ASSISTANCE AND STOOD WITH A WALKER. HE IS UNABLE TO AMBULATE SECONDARY TO PAIN IN LEFT BUTTOCKS AND LEG. ASSISTED BACK TO BED AND PLAN FOR PT CONSULT STR PLACEMENT. DR SILVA AWARE OF ATTEMPT AND PTS PAIN LEVEL
[2022-01-30] MEDS: HYDROmorphone HCl 2 MG TABLET PO (14:31)
[2022-01-30 15:17] VITALS: BP 148/81; PULSE 80; RESP 16; TEMP 36.6; O2SAT 96
--- NOTE | 2022-01-30 16:59 | PHA.MEDREC ---
Pharmacy Consult ? Medication Reconciliation Pharmacy has completed the medication reconciliation. There are no remarkable issues for provider's attention. Ada Jacobson, VanessaD
[2022-01-30 20:10] VITALS: BP 157/83; PULSE 84; RESP 16; TEMP 37.1; O2SAT 93
[2022-01-31 00:26] VITALS: BP 169/116; PULSE 58; RESP 20; O2SAT 96
[2022-01-31 02:52] VITALS: BP 160/92; PULSE 68; RESP 20; O2SAT 96
[2022-01-31 05:20] LABS: COVID-19 Test Negative (Negative)
[2022-01-31 07:30] VITALS: BP 148/61; PULSE 53; RESP 14; TEMP 37.1; O2SAT 95
--- NOTE | 2022-01-31 09:39 | MHC.CM.ED ---
Addendum entered by Lisbeth Varela 01/31/22 10:06: Patient choices: 1) [facility] [place] 2) [facility]. Referrals made via [facility]. Original Note: Received case management consult overnight. Patient came to the ER due to back pain. Work up essentially negative. Physical therapy eval will not be done until 02/01. Met with patient and , Cynthia in regards to discharge planning. Patient lives with , ambulates independently and had no services prior to coming to the hospital Patient uses a CPAT at bedtime at home. PCP verified. Patient has a HCP at home. Cynthia will attempt to bring in a copy. Patient received 3 Pfizer vaccines. Patient and Cynthia are aware patient will be spending the night in the ER until physical therapy eval can be performed. Hospital bed will be obtained for patient. List of facilities contracted with patient's insurance provided via [email or web address]. Continue to monitor for d/c needs.
[2022-01-31] MEDS: Finasteride 5 MG TABLET PO (10:47)
[2022-01-31] MEDS: Ezetimibe 10 MG TABLET PO (10:47)
[2022-01-31] MEDS: lisinopriL 10 MG TABLET PO (10:47)
[2022-01-31] MEDS: Aspirin Enteric Coated 81 MG TABLET.DR 162 MG PO (10:47)
--- NOTE | 2022-01-31 10:53 | PC.NURSE ---
PT CHANGED INTO A HOSPITAL BED FOR COMFORT. UPON MORNING MEDICATION ADMIN PT REPORTS HE ONLY TAKES 81MG ASPIRIN, NOT 162MG. SPOKE WITH DR. SILVA - WILL CHANGE ORDER IN MAR
[2022-01-31] MEDS: Brimonidine Tartrate 0.2% Oph 5 ML BOTTLE 1 DROP EYE-BOTH ×2 (11:08→20:54)
[2022-01-31 12:00] VITALS: BP 133/74; PULSE 56; RESP 18; TEMP 36.8; O2SAT 95
[2022-02-01 05:04] VITALS: BP 114/68; PULSE 64; RESP 18; TEMP 37.3; O2SAT 94
[2022-02-01 07:54] VITALS: BP 114/68; PULSE 64; O2SAT 94
--- NOTE | 2022-02-01 09:00 | MHC.CM.ED ---
Patient remains in ER. Physical therapy eval completed. Short term rehab is recommended. [facility] does not have a bed at this time. Clinical updates sent to [facility] on [address]. Continue to monitor for d/c needs.
[2022-02-01 10:33] VITALS: BP 127/72; PULSE 57; RESP 18; O2SAT 95
[2022-02-01] MEDS: lisinopriL 10 MG TABLET PO (10:35)
[2022-02-01] MEDS: Ezetimibe 10 MG TABLET PO (10:35)
[2022-02-01] MEDS: Aspirin Enteric Coated 81 MG TABLET.DR PO (10:35)
[2022-02-01] MEDS: Brimonidine Tartrate 0.2% Oph 5 ML BOTTLE 1 DROP EYE-BOTH (10:36)
[2022-02-01] MEDS: Finasteride 5 MG TABLET PO (11:28)
--- NOTE | 2022-02-01 11:29 | PC.NURSE ---
Awaiting bed placement at [facility] at this time. Case management in close communication with family. Pt comfortable at this time. at bedside.
--- NOTE | 2022-02-01 13:52 | MHC.CM.ED ---
Insurance auth has been obtained by Cameliadevika Vargas on [place]. Patient can leave at 4pm. [facility] booked. Med [facility] [place] with chart. Patient, Cynthia, Sofiya LILLY and Magdaleno CHASE are all aware. Continue to monitor for d/c needs.
--- NOTE | 2022-02-01 16:45 | PC.NURSE ---
Report given to nurse at [facility] at this time. EMS present for discharge transport.
== END 2022-02-01 16:45 | disposition skilled nursing facility (03) ==
PROVIDERS: Emergency Provider Emergency Medicine; PCP Internal Medicine
DX: S39.012A Strain of muscle, fascia and tendon of lower back, initial encounter (principal); M53.3 Sacrococcygeal disorders, not elsewhere classified; Z20.822 Contact with and (suspected) exposure to COVID-19; X58.XXXA Exposure to other specified factors, initial encounter; Y93.9 Activity, unspecified; Y92.9 Unspecified place or not applicable; Y99.9 Unspecified external cause status
CPT/HCPCS: 72170; 81003; 87635; 97162; 99284; 99285

== ENCOUNTER 2022-03-18 07:00 | Outpatient (REF) | payer MEDICARE, SELFPAY ==
--- NOTE | ~2022-03-18 | XR_ITS ---
EXAMINATION: XR LUMBOSACRAL SPINE CLINICAL INFORMATION: Back pain. COMPARISON: 11/28/2018 TECHNIQUE: Three views of the lumbosacral spine. FINDINGS: There are 5 nonrib-bearing vertebra. There is mild scoliosis convex left. There is prominent anterior spurring with some levels of bridging T12 through L3 and at L4-L5. There is also lateral spurring with bridging seen T9 through L2. There is disc space narrowing noted at the L4-L5 disc space levels. There is facet arthropathy seen L4 through S1 most prominent on the right. There is chronic loss of height of the right side of the L4 vertebral body. No acute fracture, spondylolisthesis, or spondylolysis is identified. Pedicles are intact. No significant sacroiliac joint abnormality is seen. There is calcification of a nonaneurysmal abdominal aorta. XR/XR lumbar spine 2-3V IMPRESSION: Multilevel degenerative change of the lumbar spine which is stable compared to study of 11/28/2018. No acute fracture, spondylolisthesis, or spondylolysis.
== END 2022-03-18 07:01 | disposition home or self-care (01) ==
LOC: HO.XRAY 07:00
PROVIDERS: PCP Internal Medicine; Visit Provider Internal Medicine
DX: M54.9 Dorsalgia, unspecified (principal)
CPT/HCPCS: 72100

== ENCOUNTER 2022-08-31 06:44 | Outpatient (REF) | payer MEDICARE, SELFPAY ==
[2022-08-31 06:53] LABS: MANUAL DIFF FLAG NO
[2022-08-31 07:36] LABS: Basophils Percent Auto 0.5 % (0-2); Eosinophils Absolute Auto 0.2 X10*3/uL (0.0-0.4); Eosinophils Percent Auto 2.2 % (0-4); Hematocrit 53.2 % (42.0-52.0); Hemoglobin 17.4 g/dl (14.0-18.0); Imm Gran Abs Auto 0.03 X10*3/uL (0.00-0.03); Imm Gran Pct Auto 0.4 % (0.0-0.4); Lymphocytes Absolute Auto 1.9 X10*3/uL (1.2-4.9); Lymphocytes Percent Auto 26.5 % (20-40); Mean Corpuscular HGB Conc 32.7 g/dl (31.0-36.0); Mean Corpuscular Hemoglobin 30.9 pg (27.0-33.0); Mean Corpuscular Volume 94.5 fL (80.0-98.0); Mean Platelet Volume 9.4 fL (9.4-12.4); Monocytes Absolute Auto 0.5 X10*3/uL (0.1-1.2); Monocytes Percent Auto 7.4 % (2-11); Neutrophils Absolute Auto 4.6 x10*3/uL (2.0-8.3); Platelet Count 188 X10*3/uL (160-400); Red Blood Count 5.63 X10*6/uL (4.60-5.80); Red Cell Distribution Width 13.3 % (11.0-16.0); White Blood Count 7.3 X10*3/uL (4.8-10.8)
[2022-08-31 07:48] LABS: Alanine Aminotransferase 23 U/L (0-40); Alkaline Phosphatase 70 U/L (39-117); Anion Gap 11 (12-20); Aspartate Amino Transferase 21 U/L (5-37); Bilirubin Total 1.3 mg/dL (0.0-1.0); Blood Urea Nitrogen 18 mg/dL (9-16); Calcium 9.6 mg/dL (8.4-10.2); Carbon Dioxide 30 mmol/L (22-29); Chloride 105 mmol/L (96-108); Cholesterol 158 mg/dL; Estimated Glomerular Filt Rate > 60; Glucose Fasting 111 mg/dL (60-99); HDL Cholesterol 55 mg/dL; LDL Cholesterol Calculated 86 mg/dl; Potassium 4.4 mmol/L (3.3-5.1); Sodium 142 mmol/L (135-145); Triglycerides 88 mg/dL
== END 2022-08-31 06:45 | disposition home or self-care (01) ==
LOC: HO.LAB 06:44
PROVIDERS: PCP Internal Medicine; Visit Provider Internal Medicine
DX: I10 Essential (primary) hypertension (principal); E78.00 Pure hypercholesterolemia, unspecified; N40.0 Benign prostatic hyperplasia without lower urinary tract symptoms; G47.33 Obstructive sleep apnea (adult) (pediatric)
CPT/HCPCS: 36415; 80053; 80061; 85025

== ENCOUNTER → 2022-09-29 08:20 | Outpatient (REF) | payer MEDICARE, SELFPAY ==
--- NOTE | 2022-09-29 08:24 | CA_ITS ---
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 Technically limited study despite use of contrast agent 2. Normal LV systolic function with impaired relaxation filling pattern 3. Limited visualization of cardiac valves with normal cardiac valvular Doppler Findings Procedure Information Contrast agent, definity, is being given per protocol without apparent complications. Left Ventricle Normal left ventricular size, thickness, and systolic function. The visually estimated ejection fraction is between 60-65%. Regional wall motion abnormalities can not be excluded due to suboptimal endocardial definition. Spectral Doppler is indicative of an impaired relaxation filling pattern. Right Ventricle The right ventricle was not well visualized. Atria The left atrium was not well visualized. Interatrial shunt cannot be excluded. Aortic Valve Normal aortic valve structure and function. There is no aortic valve stenosis. There is no aortic valve regurgitation. Mitral Valve The mitral valve was not well visualized. There is no mitral valve stenosis. Pulmonic Valve The pulmonic valve was not well visualized. Tricuspid Valve The tricuspid valve was not well visualized. The right ventricular systolic pressure is not calculated. Great Vessels The aorta was not well visualized. The pulmonary artery was not well visualized. Venous The inferior vena cava was not well visualized. Pericardium/Pleural The pericardium was not well visualized. Prior Study Comparison No previous study in the last 5 years for comparison Measurements 2D Linear Measurements IVSd: 0.90 0.6-0.9/0.6-1.0 cm LVIDd: 5.11 3.9-5.3/4.2-5.9 cm LVIDd Index: 2.23 2.4-3.2/2.2-3.1 cm/m2 LVIDs: 3.34 2.0-3.6 cm LVPWd: 1.02 0.7-1.1 cm LA Diam: 3.30 2.7-3.8/3.0-4.0 cm LAIDs Index: 1.44 1.5-2.3 cm/m2 LV Mass: 222.56 67-162/88-224 g LV Mass Index: 97.19 43-95/49-115 g/m2 LVOT Diam: 2.50 3.0+(-)1.3 cm 2D Systolic Function EF 4C: 64.60 >55% EF 2C: 57.40 >55% EF BiP: 62.20 >55% Mitral Valve MV Pk E: 0.56 MV PK A: 0.73 MV Decel Time: 225.00 E/A: 0.80 PHT: 66.00 MVA PHT: 3.33 Decel [place]: 2.49 Aortic Valve AoV Pk [place]: 1.15 AoV Pk Grad: 5.00 NADYA: 4.57 LVOT LVOT Pk [place]: 1.07 LVOT Mn [place]: 0.67 LVOT VTI: 0.17 LVOT Pk Grad: 5.00 LVOT Mn Grad: 2.00 LVOT Diam: 2.50 LVOT Area: 4.91 Diastolic Function MV Pk E: 0.56 MV Pk A: 0.73 E/A: 0.80 Right Ventricle TVS' Kay[place]: 14.70 Tricuspid Valve RA Press: 3.00 Great Vessels Aorta Sinus of Valsalva: 3.80 2.0-3.5 cm Ao Asc: 3.50 2.1-3.4 cm Pulmonary Valve PV Pk [place]: 1.57 Peak PV Grad: 10.00 Updated in Other Vendor System with Status of Final Yobani Goss MD electronically signed on 09/29/2022 9:37:22 AM with status of Final
== END ==
LOC: HO.CARD 08:20
PROVIDERS: PCP Internal Medicine; Visit Provider Internal Medicine
DX: I44.0 Atrioventricular block, first degree (principal); I49.1 Atrial premature depolarization
CPT/HCPCS: 93306; Q9957

== ENCOUNTER → 2022-10-05 11:02 | Outpatient (BNVA) | payer MEDICARE, SELFPAY | PROVIDERS: PCP Internal Medicine; Visit Provider Internal Medicine | DX: G47.33 Obstructive sleep apnea (adult) (pediatric) (principal); E66.9 Obesity, unspecified; Z68.32 Body mass index [BMI] 32.0-32.9, adult; Z99.89 Dependence on other enabling machines and devices | CPT/HCPCS: 99212 ==

== ENCOUNTER 2022-10-18 07:39 | Outpatient (REF) | payer MEDICARE, SELFPAY ==
[2022-10-18 11:30] LABS: Prostate Specific Antigen 1.35 ng/mL (<0.05-4.0)
== END 2022-10-18 07:40 | disposition home or self-care (01) ==
LOC: HO.10HDL 07:39
PROVIDERS: Visit Provider Urology
DX: Z12.5 Encounter for screening for malignant neoplasm of prostate (principal); N40.1 Benign prostatic hyperplasia with lower urinary tract symptoms
CPT/HCPCS: 36415; 84153

== ENCOUNTER 2023-06-02 06:46 | Outpatient (REF) | payer MEDICARE, SELFPAY ==
[2023-06-02 07:00] LABS: MANUAL DIFF FLAG NO
[2023-06-02 07:08] LABS: Basophils Absolute Auto 0.1 X10*3/uL (0.0-0.2); Basophils Percent Auto 0.6 % (0-2); Eosinophils Absolute Auto 0.3 X10*3/uL (0.0-0.4); Eosinophils Percent Auto 4.3 % (0-4); Hematocrit 52.7 % (42.0-52.0); Hemoglobin 17.6 g/dl (14.0-18.0); Imm Gran Abs Auto 0.03 X10*3/uL (0.00-0.03); Imm Gran Pct Auto 0.4 % (0.0-0.4); Lymphocytes Absolute Auto 1.4 X10*3/uL (1.2-4.9); Lymphocytes Percent Auto 17.5 % (20-40); Mean Corpuscular HGB Conc 33.4 g/dl (31.0-36.0); Mean Corpuscular Hemoglobin 31.5 pg (27.0-33.0); Mean Corpuscular Volume 94.4 fL (80.0-98.0); Mean Platelet Volume 9.1 fL (9.4-12.4); Monocytes Absolute Auto 0.7 X10*3/uL (0.1-1.2); Monocytes Percent Auto 8.4 % (2-11); Neutrophils Absolute Auto 5.4 x10*3/uL (2.0-8.3); Neutrophils Percent Auto 68.8 % (45-73); Platelet Count 174 X10*3/uL (160-400); Red Blood Count 5.58 X10*6/uL (4.60-5.80); Red Cell Distribution Width 13.2 % (11.0-16.0); White Blood Count 7.8 X10*3/uL (4.8-10.8)
[2023-06-02 07:26] LABS: Alanine Aminotransferase 22 U/L (0-40); Alkaline Phosphatase 66 U/L (39-117); Anion Gap 12 (12-20); Aspartate Amino Transferase 19 U/L (5-37); Bilirubin Total 1.5 mg/dL (0.0-1.0); Blood Urea Nitrogen 19 mg/dL (9-16); Calcium 9.7 mg/dL (8.4-10.2); Carbon Dioxide 27 mmol/L (22-29); Chloride 107 mmol/L (96-108); Cholesterol 159 mg/dL (<200); Estimated Glomerular Filt Rate > 60; Glucose Fasting 108 mg/dL (60-99); HDL Cholesterol 62 mg/dL (>40); LDL Cholesterol Calculated 83 mg/dL (<100); Potassium 4.2 mmol/L (3.3-5.1); Sodium 142 mmol/L (135-145); Total Protein 7.2 g/dL (6.5-8.0); Triglycerides 74 mg/dL (<150)
== END 2023-06-02 06:47 | disposition home or self-care (01) ==
LOC: HO.LAB 06:46
PROVIDERS: PCP Internal Medicine; Visit Provider Internal Medicine
DX: I10 Essential (primary) hypertension (principal); E78.00 Pure hypercholesterolemia, unspecified; M16.0 Bilateral primary osteoarthritis of hip; G47.33 Obstructive sleep apnea (adult) (pediatric)
CPT/HCPCS: 36415; 80053; 80061; 85025

== ENCOUNTER 2023-06-23 14:06 | Outpatient (REF) | payer MEDICARE, SELFPAY | END 2023-06-23 14:07 | disposition home or self-care (01) | LOC: HO.US 14:06 | PROVIDERS: PCP Internal Medicine; Visit Provider Internal Medicine | DX: R09.89 Other specified symptoms and signs involving the circulatory and respiratory systems (principal) | CPT/HCPCS: 93880 ==

== ENCOUNTER 2023-09-27 09:32 | Outpatient (AMB) | payer MEDICARE, SELFPAY ==
--- NOTE | 2023-09-27 09:37 | MHC.OFFVIS ---
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 HE IS HERE FOR 1 YEAR FOLLOW-UP. HE GOT HIS NEW CPAP MACHINE FROM [employer]. USES EVERY NIGHT FOR AT LEAST 8 HOURS PER NIGHT AND SLEEPS VERY WELL. HE HAS NO ISSUES WITH THE NASAL MASK AND CPAP DEVICE. WEIGHT MARTINEZ HIS WEIGHT HAS REMAINED ALMOST THE SAME EXCEPT FOR A FEW LB UP AND DOWN. HE DENIES ANY BREATHING ISSUES. HE HAS SLIGHT IMPAIRMENT OF GAIT DUE TO DEGENERATIVE ARTHRITIS OF THE SPINE AND USES CANE WHEN WALKING AROUND. FORMERLY [facility], [facility] Medical History ROXY on CPAP Obesity Review of Systems Const All systems reviewed & are unremarkable except as noted in HPI and below Eyes Reports no additional complaints ENT Reports no additional complaints and Reports dizziness (occasional .) Card Denies chest pain, Denies irregular heart rhythm and Denies leg edema Resp Reports no additional complaints GI Reports no additional complaints Reports other (nocturia 1-2 per night ) Musc Reports abnormal gait (SLIGHTLY IMPAIRED AND HE HAS TO USE A CANE) and Reports back pain (mild ) Skin/Breast Reports system reviewed and no additional complaints, except as documented Neuro Reports abnormal gait (SLIGHTLY IMPAIRED AND HE HAS TO USE A CANE) and Reports dizziness (occasional .) Psych Reports no additional complaints Endo Reports no additional complaints Physical Exam Vital Signs: Last Vital Signs Pulse 80 09/27/23 09:39 BP 134/72 09/27/23 09:39 Pulse Ox 98 09/27/23 09:39 Oxygen Delivery Method Room Air 09/27/23 09:39 BMI result Body Mass Index 32.9 Const General: healthy appearing (Except for being overweight), comfortable, no acute distress, alert and awake Orientation/consciousness: patient oriented x3 HEENT Head: Yes normal to inspection General nose exam: No nasal polyps present and No nasal discharge present Face and sinus: Yes sinuses nontender Mouth: oropharynx normal Throat: Yes posterior oropharynx normal Eyes General: appearance normal, both eyes and all related structures Neck Neck: Yes normal visual inspection, Yes no lymphadenopathy, Yes trachea midline and Yes no JVD Thyroid: Thyroid normal Chest Chest palpation & inspection: normal inspection of the chest, normal palpation of entire chest wall and no tenderness Resp Other: Percussion note resonant, breath sounds are equal and vesicular on both sides. No wheezes rhonchi or Creps are heard. Cardio Palpation: normal PMI Rate: regular rate Rhythm: regular rhythm Heart sounds: no gallops and no murmurs Peripheral pulses: Peripheral pulses 2+ throughout GI Palpation (GI): Soft to palpation, nontender, No hepatosplenomegaly present, no masses and Other GI palpation findings present (Abdomen slightly obese and protuberant) Auscultation: normal bowel sounds Back/Spine/Pelvis Thoracic/Lumbar Spine: thoracic and lumbar spine normal to inspection Skin General skin exam: no rashes or lesions noted Neuro General: patient oriented x3 and no focal motor deficits Cranial nerves: Yes CN's II-XII intact bilaterally Extrem General: Yes normal to inspection, Yes no clubbing, cyanosis or edema and Yes no calf tenderness Psych Appearance: grossly normal and well kempt Speech and movement: Normal speech and movement present Results Reviewed Results Reviewed: COMPLIANCE REPORT COULD NOT BE DOWNLOADED. ACCORDING TO THE PATIENT HIS STATEMENT HE IS USING REGULARLY EVERY NIGHT AND FOR AT LEAST 7-8 HOURS PER NIGHT. Assessment & Plan Assessment & Plan (1) ROXY on CPAP: Comment: He has been using CPAP with nasal pillows which is quite comfortable. He is very compliant and sleeps good with the device. Code(s): G47.33 - Obstructive sleep apnea (adult) (pediatric); Z99.89 - Dependence on other enabling machines and devices Plan: ADVISED TO CONTINUE USING CPAP REGULARLY, CALL IF THERE IS ANY PROBLEM WITH THE CPAP APPARATUS. (2) Obesity: Comment: Moderately obese, but has remained stable. Code(s): E66.9 - Obesity, unspecified Plan: AGAIN DISCUSSED WITH HIM ABOUT HIS WEIGHT ISSUE. HE HAS DIFFICULTY IN LOSING WEIGHT BECAUSE HE DOES NOT WALK MUCH. HE IS ADVISED TO KEEP ON WATCHING HIS DIET. Coding Level of Care Code Est Pt Level 3 (19337) Diagnoses ROXY on CPAP G47.33; Z99.89 Obesity E66.9
[2023-09-27 09:39] VITALS: BP 134/72; PULSE 80; O2SAT 98; BMI 32.9
== END 2023-09-27 09:51 | disposition home or self-care (01) ==
PROVIDERS: PCP Internal Medicine; Visit Provider Internal Medicine
DX: G47.33 Obstructive sleep apnea (adult) (pediatric) (principal); Z99.89 Dependence on other enabling machines and devices; E66.9 Obesity, unspecified
CPT/HCPCS: 99213

== ENCOUNTER → 2023-09-27 09:32 | Outpatient (BNVA) | payer MEDICARE, SELFPAY | PROVIDERS: PCP Internal Medicine; Visit Provider Internal Medicine | DX: G47.33 Obstructive sleep apnea (adult) (pediatric) (principal); E66.9 Obesity, unspecified; Z99.89 Dependence on other enabling machines and devices; Z68.32 Body mass index [BMI] 32.0-32.9, adult | CPT/HCPCS: 99212 ==

== ENCOUNTER 2023-10-27 07:32 | Outpatient (REF) | payer MEDICARE, SELFPAY ==
[2023-10-27 09:03] LABS: Prostate Specific Antigen 1.38 ng/mL (<0.05-4.0)
== END 2023-10-27 07:33 | disposition home or self-care (01) ==
LOC: HO.LAB 07:32
PROVIDERS: PCP Internal Medicine; Visit Provider Physician Assistant
DX: Z12.5 Encounter for screening for malignant neoplasm of prostate (principal); N40.1 Benign prostatic hyperplasia with lower urinary tract symptoms
CPT/HCPCS: 36415; 84153

== ENCOUNTER 2024-01-06 10:01 | Outpatient (REF) | payer MEDICARE, SELFPAY ==
[2024-01-06 10:39] LABS: MANUAL DIFF FLAG NO
[2024-01-06 10:49] LABS: Basophils Percent Auto 0.4 % (0-2); Eosinophils Absolute Auto 0.1 X10*3/uL (0.0-0.4); Eosinophils Percent Auto 1.2 % (0-4); Hematocrit 51.6 % (42.0-52.0); Hemoglobin 17.2 g/dl (14.0-18.0); Imm Gran Abs Auto 0.02 X10*3/uL (0.00-0.03); Imm Gran Pct Auto 0.3 % (0.0-0.4); Lymphocytes Percent Auto 14.5 % (20-40); Mean Corpuscular HGB Conc 33.3 g/dl (31.0-36.0); Mean Corpuscular Hemoglobin 31.6 pg (27.0-33.0); Mean Corpuscular Volume 94.7 fL (80.0-98.0); Mean Platelet Volume 10.1 fL (9.4-12.4); Monocytes Absolute Auto 0.5 X10*3/uL (0.1-1.2); Monocytes Percent Auto 7.4 % (2-11); Neutrophils Absolute Auto 5.3 x10*3/uL (2.0-8.3); Neutrophils Percent Auto 76.2 % (45-73); Platelet Count 169 X10*3/uL (160-400); Red Blood Count 5.45 X10*6/uL (4.60-5.80); White Blood Count 6.9 X10*3/uL (4.8-10.8)
[2024-01-06 11:10] LABS: Estimated Average Glucose 111 mg/dL; Hemoglobin A1c % 5.5 % (<6.0)
[2024-01-06 14:28] LABS: Alanine Aminotransferase 25 U/L (0-40); Alkaline Phosphatase 67 U/L (39-117); Anion Gap 10 (12-20); Aspartate Amino Transferase 20 U/L (5-37); Bilirubin Total 0.9 mg/dL (0.0-1.0); Blood Urea Nitrogen 19 mg/dL (9-16); Calcium 9.3 mg/dL (8.4-10.2); Carbon Dioxide 27 mmol/L (22-29); Chloride 108 mmol/L (96-108); Estimated Glomerular Filt Rate > 60; Glucose Random 98 mg/dL (60-115); Potassium 3.9 mmol/L (3.3-5.1); Sodium 141 mmol/L (135-145); Total Protein 7.3 g/dL (6.5-8.0)
== END 2024-01-06 10:02 | disposition home or self-care (01) ==
LOC: HO.10HDL 10:01
PROVIDERS: Visit Provider Internal Medicine
DX: M19.90 Unspecified osteoarthritis, unspecified site (principal); R73.03 Prediabetes; I10 Essential (primary) hypertension
CPT/HCPCS: 36415; 80053; 83036; 85025

== ENCOUNTER 2024-05-07 10:46 | Emergency (ER) | payer MEDICARE, SELFPAY ==
--- NOTE | ~2024-05-07 | XR_ITS ---
EXAMINATION: XR LUMBOSACRAL SPINE CLINICAL INFORMATION: Low back pain COMPARISON: 03/18/2020 TECHNIQUE: 3 views of lumbar spine obtained for interpretation. FINDINGS: There is no interval change in appearance of multilevel degenerative spondylosis with mild levoscoliosis, marginal spurs formation and mild narrowing of intervertebral disc spaces at the level of L4-L5. Sacroiliac joints unremarkable soft tissues are normal. Pedicles are intact. There is no spondylolysis or listhesis XR/XR lumbar spine 2-3V IMPRESSION: Mild multilevel degenerative spondylosis and mild levoscoliosis.
--- NOTE | ~2024-05-07 | XR_ITS ---
EXAMINATION: XR BILATERAL HIPS WITH AP PELVIS CLINICAL INFORMATION: Bilateral hip pain COMPARISON: None available. TECHNIQUE: AP view of the pelvis and single views of each hip were obtained. FINDINGS: No fracture. Hip joint spaces are maintained. Alignment is anatomic. Sacroiliac joints and pubic symphysis are normal. No abnormal soft tissue calcifications. XR/XR hips MARIZA min 3V IMPRESSION: Normal pelvis and hips.
[2024-05-07 10:56] VITALS: BP 182/80; PULSE 110; O2SAT 96
[2024-05-07 10:58] VITALS: BP 123/74; PULSE 92; RESP 16; TEMP 36.9; O2SAT 95; BMI 33.2
--- NOTE | 2024-05-07 11:29 | ED_ITS ---
HPI - Fall General Chief Complaint: Fall Stated Complaint: WEAK, FALL LAST WEEK PER EMS Time Seen by Provider: 05/07/24 10:56 Source: patient, EMS, RN notes reviewed and old records reviewed Mode of arrival: EMS History of Present Illness ED Provider: Danna Dang PA-C HPI Narrative: 83-year-old male with a past medical history of ROXY on CPAP, obesity, presenting to the ED complaining of bilateral hip/low back pain > left s/p mechanical trip and fall 1.5 weeks ago. Patient states he was in his bathroom and foot got stuck on floor and fell onto right side, denies head trauma or LOC. denies symptoms prior to fall. Takes baby ASA, denies other anticoagulation. Reports pain has been present since fall however worsened this morning with radiation to upper thigh. Denies numbness, tingling, weakness, incontinence/retention, abdominal pain, hematuria MD complaint: fall Related Data Home Medications ?Medication ?Instructions ?Recorded ?Confirmed ezetimibe 10 mg tablet 10 mg PO DAILY 09/01/20 01/30/22 finasteride 5 mg tablet 5 mg PO DAILY 09/01/20 01/30/22 lisinopril 10 mg tablet 10 mg PO DAILY 09/01/20 01/30/22 omega-3 fatty acids 1,000 mg 1,000 mg PO DAILY 09/01/20 01/30/22 capsule (Fish Oil Concentrate) aspirin 81 mg tablet,delayed 81 mg PO DAILY 10/05/22 release tamsulosin 0.4 mg capsule 0.4 mg PO DAILY 09/27/23 Previous Rx's ?Medication ?Instructions ?Recorded cyclobenzaprine 5 mg tablet 5 mg PO Q8H PRN pain (scale score 05/07/24 7-10) 5 days #14 tabs lidocaine 5 % topical patch 1 patch topical DAILY PRN pain #30 05/07/24 (Lidoderm) ea morphine 15 mg immediate release 15 mg PO Q6H PRN pain (scale score 05/07/24 tablet 7-10) 3 days #9 tabs naproxen 500 mg tablet 500 mg PO BID PRN pain 10 days #20 05/07/24 tabs Allergies Allergy/AdvReac Type Severity Reaction Status Date / Time No Known Allergies Allergy Verified 05/07/24 11:00 Review of Systems Review of Systems: Constitutional: No Fever, No Chills Cardiovascular: No Chest Pain, No SOB Respiratory: No Cough Gastrointestinal: No Nausea, No Vomiting, No Abdominal pain Genitourinary: No Dysuria, No Urinary Frequency, No Hematuria, No Urinary Incontinence/retention, No Flank Pain Musculoskeletal: + joint pain, No Myalgias, No Joint Swelling Skin: No Skin Lesions, No rash Neuro: No Weakness, No Numbness, No Paresthesias Yes all other systems are reviewed and are negative Constitutional: Constitutional: Reports as per [facility] Past Medical History Attestation statement: The following information was validated with the patient. Source: old records reviewed Medical History ROXY on CPAP Obesity Social History Social History Advance Directives: No Advance Directives Information Provided: No Physical Exam Vital Signs: Vital Signs: Last Vital Signs Temp 98.4 F 05/07/24 14:23 Pulse 92 05/07/24 14:23 Resp 16 05/07/24 14:23 BP 123/74 05/07/24 14:23 Pulse Ox 95 05/07/24 10:58 O2 Del Method Room Air 05/07/24 10:58 BMI result Body Mass Index 33.2 Const: General: cooperative, healthy appearing and no acute distress Orientation/consciousness: patient oriented x3 Limitations: no limitations HEENT: Head: Yes normal to inspection and Yes atraumatic Ears: hearing grossly normal bilaterally General nose exam: Normal external nose present Face and sinus: Yes normal facial exam Eyes: General: appearance normal, both eyes and all related structures EOM: EOMs intact bilaterally Neck: Neck: Yes normal visual inspection and Yes no meningeal signs Resp: Effort & Inspection: normal respiratory effort and no respiratory distress Cardio: Rate: regular rate Peripheral pulses: Peripheral pulses 2+ throughout GI: Inspection: Yes normal to inspection Palpation (GI): Soft to palpation, nontender, no guarding and not rigid : General: Yes no CVA tenderness Back/Spine/Pelvis: Other: No midline cervical/thoracic/lumbar spinous tenderness/step-off or deformity. + left-sided lower lumbar/upper buttock reproducible tenderness. No ecchymosis/erythema or rash Back: no CVA tenderness Skin: Rashes: no rashes Wounds: no wounds Neuro: Other: Strength intact throughout. No saddle anesthesia. Sensation intact to light touch. Neurovascular intact distally General: patient oriented x3, tone normal, moves all extremities, no meningeal signs and no focal motor deficits Cranial nerves: Yes CN's II-XII intact bilaterally Motor exam (neuro): 5/5 motor strength present throughout Extrem: Other: + bilateral hip tenderness appreciated w ithout deformity. ROM intact without discomfort. Neurovascular intact distally General: Yes normal to inspection Course Course Course Narrative: XR lumbar spine 2-3V IMPRESSION: Mild multilevel degenerative spondylosis and mild levoscoliosis. XR hips MARIZA min 3V IMPRESSION: Normal pelvis and hips. > on re-evaluation patient reports mild symptomatic improvement however cont inued pain, will give p.o. morphine and re-evaluate/ambulation trial -1415--patient ambulating in the ED with steady gait with walker. Patient admits he has a walker at home. Reports pain is more localized, nonradiating at present. Plan to discharge home with pain control and close PCP follow-up. Patient comfortable and in agreement with plan Results discussed with patient including worrisome signs and symptoms and strict return precautions, and when to return to the emergency department. They verbalized understanding and feel safe for discharge at this time. Medications Administered Discontinued Medications Generic Name Dose Route Start Last Admin Trade Name Freq PRN Reason Stop Dose Admin Cyclobenzaprine HCl 10 mg 05/07/24 11:20 05/07/24 11:56 Cyclobenzaprine Hcl 10 Mg Tablet PO 05/07/24 11:21 10 mg ONCE ONE Administration Ketorolac Tromethamine 30 mg 05/07/24 11:20 05/07/24 11:58 Ketorolac Tromethamine 30 Mg/Ml Vial IM 05/07/24 11:21 30 mg ONCE ONE Administration Morphine Sulfate 15 mg 05/07/24 12:33 05/07/24 12:57 Morphine Sulfate Immed Release 15 Mg Tablet PO 05/07/24 12:34 15 mg ONCE ONE Administration Medical Decision Making Medical Decision Making [facility] Narrative: 83-year-old male with a past medical history of ROXY on CPAP, obesity, presenting to the ED complaining of bilateral hip/low back pain > left s/p mechanical trip and fall 1.5 weeks ago. On exam vital signs stable, NAD, nontoxic appearing physical exam as noted above, no midline spinous tenderness throughout red flag symptoms. Reproducible bilateral hip and left lower lumbar MSK tenderness. No red flag symptoms. No saddle anesthesia. Concern for osteoarthritis vs MSK pain/strain vs sciatica. Low suspicion for cauda equina, cord compression, epidural abscess, renal stone, hernia. Rule out fracture Plan: X-rays, pain control, ambulation trial Please refer to course for remaining clinical decision making, interpretation of labs/imaging results, and discussions with consultants and/or family members. Differential Diagnosis Differential Diagnoses: The differential diagnosis associated with the presentation includes As above Independent Interpretation I performed an independent interpretation of an: Plain X-Ray Radiology Impression Discussion of test interpretation with radiology: I have reviewed the radiologist's reading. Independent Historian Clinical information obtained from an independent historian. History obtained from or confirmed by: EMS External Record Review External record reviewed: Inpatient record, Office record, Outpatient record, Prior outpatient labs, Prior outpatient radiology, Primary care record and Outside ED record Tests considered The following testing was considered but not selected: As above Prescription Management I considered prescription management with: Pain Medication Chronic Conditions Patient?s care impacted by: Other Discharge Plan Discharge Clinical Impression: Acute hip pain, Sciatic pain Patient Disposition: Home, Self-Care Instructions: Sciatica (ED), Arthralgia (ED) Additional Instructions: Your x-rays show arthritis. no fractures Flexeril is a muscle relaxer, take at night as it makes you drowsy, do not drive, drink alcohol, or operate machinery while taking it Naproxen as an anti-inflammatory / pain medication, take with food Lidoderm patches are numbing patches, apply to painful area Morphine is an opiate pain medication, take when pain is severe for the next 3 days In addition take Tylenol at home If symptoms persist or worsen, pain becomes unbearable, you developed urinary retention or incontinence, or weakness return to the ED Please follow-up with your doctor Prescriptions: New lidocaine [Lidoderm] 5 % adhesive patch,medicated 1 patch topical DAILY MDD remove after 12 hours PRN (Reason: pain) Qty: 30 0RF Rx Instructions: leave on most painful area for up to 12 hrs morphine 15 mg tablet 15 mg PO Q6H PRN (Reason: pain (scale score 7-10)) 3 Days Qty: 9 0RF Rx Instructions: Partial Fill upon patient request. naproxen 500 mg tablet 500 mg PO BID PRN (Reason: pain) 10 Days Qty: 20 0RF cyclobenzaprine 5 mg tablet 5 mg PO Q8H PRN (Reason: pain (scale score 7-10)) 5 Days Qty: 14 0RF No Action finasteride 5 mg tablet 5 mg PO DAILY ezetimibe 10 mg tablet 10 mg PO DAILY lisinopril 10 mg tablet 10 mg PO DAILY omega-3 fatty acids [Fish Oil Concentrate] 1,000 mg capsule 1,000 mg PO DAILY aspirin 81 mg tablet,delayed release (DR/EC) 81 mg PO DAILY tamsulosin 0.4 mg capsule 0.4 mg PO DAILY Referrals: Chad Funk MD [Primary Care Provider] - 3 days Print Language: Yakut
[2024-05-07] MEDS: Cyclobenzaprine HCl 10 MG TABLET PO (11:56)
[2024-05-07] MEDS: Ketorolac Tromethamine 30 MG/ML VIAL IM (11:58)
--- NOTE | 2024-05-07 12:09 | PC.NURSE ---
Pt Medicated per NOV. Pt requested HOB to be lowered to 30. Lights dimmed and call brody within reach.
[2024-05-07] MEDS: Morphine Sulfate Immed Release 15 MG TABLET PO (12:57)
--- NOTE | 2024-05-07 13:10 | PC.NURSE ---
PT Medicated per NOV, Pain level reassessed pain level at a 5 out of 10 now, patient repositioned, call brody within reach.
--- NOTE | 2024-05-07 13:39 | PC.NURSE ---
Ambulation Trial done on Pt, PT walked up and down [facility] [place] hallway & tolerated trial well, pt reported no signs of dizziness or SOB while walking, pt did state he had pain on his left lower hip while walking and states i feel like i can't move my left foot all the way forward because of the pain. Walker was used during trial PT states he alternates between a cane and walker at home.This Nurse observed a steady gait & proper technique of walker use during trial. PA notified of walking trial.
[2024-05-07 14:22] VITALS: BP 123/74; PULSE 92; RESP 16; TEMP 36.9
[2024-05-07 14:23] VITALS: BP 123/74; PULSE 92; RESP 16; TEMP 36.9
[2024-05-07 14:28] VITALS: BP 142/85; PULSE 70; RESP 20; TEMP 36.4; O2SAT 96
[2024-05-07 14:45] VITALS: BP 142/85; PULSE 70; RESP 20; TEMP 36.4; O2SAT 96
== END 2024-05-07 14:54 | disposition home or self-care (01) ==
PROVIDERS: Emergency Provider Emergency Medicine; PCP Internal Medicine
DX: M54.42 Lumbago with sciatica, left side (principal); M25.552 Pain in left hip; M25.551 Pain in right hip; Z79.82 Long term (current) use of aspirin; Z79.899 Other long term (current) drug therapy
CPT/HCPCS: 72100; 73522; 96372; 99283; 99284; J1885

== ENCOUNTER 2024-05-12 11:19 | Emergency (ER) | payer MEDICARE, SELFPAY ==
--- NOTE | ~2024-05-12 | CT_ITS ---
EXAMINATION: CT HEAD WITHOUT CONTRAST CT CERVICAL SPINE WITHOUT CONTRAST CLINICAL INFORMATION: Fall with head head strike, neck trauma COMPARISON: CT head from 01/27/2021 TECHNIQUE: Contiguous axial imaging was performed from the skull base to vertex without intravenous administration of contrast. In addition, helical noncontrast CT imaging was acquired through the cervical spine and source images were reviewed along with axial reconstructions and sagittal and coronal MPRs. All CT exams at this location are performed using dose optimization techniques as appropriate to a performed exam including at least one of the following: * Automated exposure control * Adjustment of the mA and/or kV according to patient size (this includes techniques or standardized protocols for targeted exams where dose is matched to indication / reason for exam; i/e/ extremities or head) * Use of iterative reconstructive technique DLP: 1595 mGy-cm FINDINGS: HEAD: Mild right frontal superficial scalp swelling. No intracranial mass, hemorrhage, or midline shift is visualized. Generalized atrophy is seen. Ventricles are prominent in size due to underlying atrophy. No extra-axial collections are identified. There is diffuse mucosal thickening of the bilateral ethmoid air cells and right frontal sinus. CERVICAL SPINE: There is no evidence of acute cervical spine fracture. Vertebral body height and alignment is well maintained. No pre- or paravertebral soft tissue abnormality is identified. Severe diffuse degenerative disc disease noted throughout the cervical spine there is near complete fusion in loss of disc space from C4 through C7. Left greater than right posterior facet arthropathy is seen. Facet joints are otherwise well maintained. Limited assessment of the lung apices is unremarkable. CT/CT cervical spine wo IV con IMPRESSION: 1. No acute intracranial pathology. 2. No CT evidence of acute cervical spine fracture or traumatic subluxation. 3. Severe diffuse degenerative disc disease and facet arthropathy. Electronically signed by: Myles Razo MD 05/12/2024 01:35 PM EDT
--- NOTE | ~2024-05-12 | XR_ITS ---
EXAMINATION: XR LUMBOSACRAL SPINE CLINICAL INFORMATION: Pain, post fall. COMPARISON: Radiograph lumbar spine 05/07/2024. TECHNIQUE: Three views of the lumbosacral spine. FINDINGS: Unchanged mild left apical curvature of the lower lumbar spine. Stable trace retrolisthesis of L3 on L4. No evidence of acute compression deformity or traumatic subluxation. Moderate to severe multilevel degenerative changes more pronounced from L4 through S1 where there is associated neural foraminal encroachment. Very prominent multilevel marginal osteophytes. Severe atherosclerotic disease of the abdominal aorta measuring up to 3.7 cm on AP diameter on the sagittal view, similar to prior. Otherwise, no significant paraspinal soft tissue abnormality. XR/XR lumbar spine 2-3V IMPRESSION: 1. No acute compression deformity or traumatic subluxation. 2. Moderate to severe lumbar spondylosis. 3. Severe atherosclerotic disease of the abdominal aorta with unchanged 3.7 cm AP aneurysmal dilatation. Recommend further measurements with AAA ultrasound. Electronically signed by: Julee Donahue MD 05/12/2024 04:57 PM EDT
[2024-05-12 11:33] VITALS: BP 195/84; PULSE 64; RESP 17; TEMP 36.7; O2SAT 96
[2024-05-12 11:35] VITALS: BP 140/90; PULSE 62; O2SAT 96
[2024-05-12 11:36] VITALS: BMI 33.2
--- NOTE | 2024-05-12 13:12 | ED.FALL ---
HPI - Fall General Chief Complaint: Fall Stated Complaint: FALL,HIT HEAD,-LOC,BACK/HIP PAIN PER EMS Time Seen by Provider: 05/12/24 11:24 Source: patient and EMS Mode of arrival: EMS Limitations: no limitations History of Present Illness ED Provider: Dodie Sherman PA-C HPI Narrative: 83 yo male with history of obesity, ROXY, history of recurrent falls, seen here 5 days ago for pain in his bilateral hips and back after a recent fall who presents back to the ER today via EMS from home for evaluation of 06/28 low back pain after he fell at home. Patient states he was in the bathroom with his walker, when he went to bend down to undo his parents he developed severe pain across his lower back, causing him to fall backward and hit his head on the wall. He then fell onto his buttocks and back. He was unable to get up. He did not lose consciousness. He is not on anticoagulation. Patient reports the lower back pain is worse than it was prior to the fall. States he also has pain in his bilateral hips and that is chronic. Denies any preceding dizziness, chest pain, shortness of breath. No abdominal pain. MD complaint: fall Onset (ago): minute(s) Fall from: standing Fall witnessed: no Place fall occurred: home Loss of consciousness: none Symptoms prior to fall: none Context: history of frequent falls Location of injury: head and back Severity: severe Severity scale (1-10): 10 Quality: sharp and aching Associated symptoms (after fall): unable to walk Related Data Home Medications ?Medication ?Instructions ?Recorded ?Confirmed ezetimibe 10 mg tablet 10 mg PO DAILY 09/01/20 05/12/24 lisinopril 10 mg tablet 10 mg PO DAILY 09/01/20 05/12/24 omega-3 fatty acids 1,000 mg 1,000 mg PO DAILY 09/01/20 05/12/24 capsule (Fish Oil Concentrate) aspirin 81 mg tablet,delayed 81 mg PO DAILY 10/05/22 05/12/24 release tamsulosin 0.4 mg capsule 0.4 mg PO DAILY 09/27/23 finasteride 5 mg tablet 5 mg PO DAILY 05/12/24 05/12/24 naproxen 500 mg tablet 500 mg PO BID PRN pain 05/12/24 05/12/24 tamsulosin 0.4 mg capsule 0.4 mg PO DAILY 05/12/24 05/12/24 Previous Rx's ?Medication ?Instructions ?Recorded cyclobenzaprine 5 mg tablet 5 mg PO Q8H PRN pain (scale score 05/07/24 7-10) 5 days #14 tabs lidocaine 5 % topical patch 1 patch topical DAILY PRN pain #30 05/07/24 (Lidoderm) ea morphine 15 mg immediate release 15 mg PO Q6H PRN pain (scale score 05/07/24 tablet 7-10) 3 days #9 tabs naproxen 500 mg tablet 500 mg PO BID PRN pain 10 days #20 05/07/24 tabs Allergies Allergy/AdvReac Type Severity Reaction Status Date / Time No Known Allergies Allergy Verified 05/12/24 11:39 Review of Systems Review of Systems: Yes all other systems are reviewed and are negative [facility] Past Medical History Medical History ROXY on CPAP Obesity Social History Social History Smoked in Last 30 Days: No Use of substances other than those prescribed or required for medical reasons: No Advance Directives: No Advance Directives Information Provided: No Physical Exam Vital Signs: Vital Signs: Last Vital Signs Temp 97.4 F 05/12/24 23:33 Pulse 57 05/12/24 23:33 Resp 16 05/12/24 23:33 BP 178/101 H 05/13/24 07:23 Pulse Ox 92 05/12/24 23:33 O2 Del Method Room Air 05/12/24 23:33 BMI result Body Mass Index 33.2 Appearance: Alert elderly male in a cervical collar. Oriented X3. No acute distress. Head: normocephalic, atraumatic. Eyes: Pupils equal, round and reactive to light. ENT: Pharynx normal. No tonsillar swelling or exudate. Neck: Normal inspection. Neck supple. CVS: Normal heart rate and rhythm. Pulses normal. Respiratory: No respiratory distress. Breath sounds normal. Abdomen: Soft and nontender. +BS x4 Back: diffuse tenderness of the entire lumbar area, +straight leg test bilaterally. Skin: Skin warm and dry. Normal skin color. Normal skin turgor. No rashes. Extremities: No lower extremity edema. No joint swelling. Pelvis is stable. Neuro/psych: Oriented X 3. No motor deficit. No sensory deficit. CN II-XII intact. Normal speech and cognition. Course Reevaluation(s) Reevaluation #1: Patient placed in physician observation. He is pending evaluation by PT and case management consult. He has severe low back pain and is unable to safely ambulate and be discharged home. Will start around the clock Tylenol, continue his previously prescribed p.r.n. naproxen, oxycodone, Lidoderm patches. All home medications have been restarted. Diet ordered. Will continue to monitor. Time: 17:28 Reevaluation #2: 804am 05/13/24 Physician observation continued. VS stable, no acute events overnight, pending PT/CM this AM. VALENCIA Medications Administered Generic Name Dose Route Start Last Admin Trade Name Freq PRN Reason Stop Dose Admin Acetaminophen 975 mg 05/12/24 21:00 05/13/24 05:13 Acetaminophen 325 Mg Tablet PO 975 mg Q8H LINA Administration Aspirin 81 mg 05/13/24 09:00 05/13/24 07:26 Aspirin Enteric Coated 81 Mg Tablet. PO 81 mg DAILY LINA Administration Cyclobenzaprine HCl 5 mg 05/12/24 18:28 05/12/24 19:13 Cyclobenzaprine Hcl 5 Mg Tablet PO 5 mg Q8H PRN Administration pain (scale score 7-10) Ezetimibe 10 mg 05/13/24 09:00 05/13/24 07:26 Ezetimibe 10 Mg Tablet PO 10 mg DAILY LINA Administration Finasteride 5 mg 05/13/24 09:00 05/13/24 07:26 Finasteride 5 Mg Tablet PO 5 mg DAILY LINA Administration Lisinopril 10 mg 05/13/24 09:00 05/13/24 07:23 Lisinopril 10 Mg Tablet PO 10 mg DAILY LINA Administration Protocol Oxycodone HCl 5 mg 05/12/24 17:31 05/12/24 23:54 Oxycodone Hcl Immed Release 5 Mg Tablet PO 5 mg Q8H PRN Administration Pain, Severe (Pain Scale 7-10) Tamsulosin HCl 0.4 mg 05/13/24 09:00 05/13/24 07:26 Tamsulosin Hcl 0.4 Mg Capsule PO 0.4 mg DAILY LINA Administration Discontinued Medications Generic Name Dose Route Start Last Admin Trade Name Angelica PRN Reason Stop Dose Admin Acetaminophen 975 mg 05/12/24 13:56 05/12/24 14:03 Acetaminophen 325 Mg Tablet PO 05/12/24 13:57 975 mg ONCE ONE Administration Ibuprofen 600 mg 05/12/24 15:14 05/12/24 15:38 Ibuprofen 600 Mg Tablet PO 05/12/24 15:15 600 mg ONCE ONE Administration Lidocaine 1 patch 05/12/24 15:14 05/12/24 15:34 Lidocaine 4 % Patch Adh..Patch TRANSDERMA 05/12/24 15:15 1 patch ONCE ONE Administration Protocol Oxycodone HCl 5 mg 05/12/24 13:56 05/12/24 14:04 Oxycodone Hcl Immed Release 5 Mg Tablet PO 05/12/24 13:57 5 mg ONCE ONE Administration Oxycodone HCl 5 mg 05/12/24 15:14 05/12/24 15:39 Oxycodone Hcl Immed Release 5 Mg Tablet PO 05/12/24 15:15 5 mg ONCE ONE Administration Medical Decision Making Medical Decision Making [facility] Narrative: 83 yo male with history of obesity, ROXY, history of recurrent falls, seen here 5 days ago for pain in his bilateral hips and back after a recent fall who presents back to the ER today via EMS from home for evaluation of 10/10 low back pain after he fell at home. Patient had CT scan of his head and neck that did not show any acute injuries. Denied any neck pain on palpation. He was complaining of severe low back pain so repeat lumbar x-rays were performed that showed no acute changes from the other day. He was treated with oxycodone x2 with ongoing pain. He was unable to ambulate independently. She will require increased pain control, physical therapy evaluation, case management consultation and likely placement to acute rehab. Differential Diagnosis Differential Diagnoses: The differential diagnosis associated with the presentation includes Inflammatory disorders, malignancy, trauma, osteoporosis, nerve root compression, radiculopathy, plexopathy, degenerative disc disease, disc herniation, spinal stenosis, sacroiliac joint dysfunction, facet joint injury, and less likely infection?like abscess or diskitis Admission/Observation Consideration of admission/observation: Escalation of care including admission/observation considered Lab Data [facility] Lab Attestation statement: I reviewed the patient's lab results. Negative urinalysis Labs: Lab Results 05/12/24 Range/Units 13:30 Urine Color Yellow Urine Appearance Clear Urine pH 5.5 (5.0-9.0) Ur Specific [place] 1.020 (1.005-1.025) Urine Protein Negative (Neg-Trace) mg/dL Urine Glucose (UA) Negative (Negative) mg/dL Urine Ketones Negative (Negative) mg/dL Urine Blood Negative (Negative) Urine Nitrite Negative (Negative) Ur Leukocyte Esterase Negative (Negative) Independent Interpretation I performed an independent interpretation of an: Plain X-Ray and CT Scan Interpretation: X-rays of the spine without any acute fractures CT scan of the head without any acute bleed or edema Radiology Impression Discussion of test interpretation with radiology: I have reviewed the radiologist's reading. Radiologist Impression: EXAMINATION: XR LUMBOSACRAL SPINE CLINICAL INFORMATION: Pain, post fall. COMPARISON: Radiograph lumbar spine 05/07/2024. TECHNIQUE: Three views of the lumbosacral spine. FINDINGS: Unchanged mild left apical curvature of the lower lumbar spine. Stable trace retrolisthesis of L3 on L4. No evidence of acute compression deformity or traumatic subluxation. Moderate to severe multilevel degenerative changes more pronounced from L4 through S1 where there is associated neural foraminal encroachment. Very prominent multilevel marginal osteophytes. Severe atherosclerotic disease of the abdominal aorta measuring up to 3.7 cm on AP diameter on the sagittal view, similar to prior. Otherwise, no significant paraspinal soft tissue abnormality. XR/XR lumbar spine 2-3V IMPRESSION: 1. No acute compression deformity or traumatic subluxation. 2. Moderate to severe lumbar spondylosis. 3. Severe atherosclerotic disease of the abdominal aorta with unchanged 3.7 cm AP aneurysmal dilatation. Recommend further measurements with AAA ultrasound. EXAMINATION: CT HEAD WITHOUT CONTRAST CT CERVICAL SPINE WITHOUT CONTRAST CLINICAL INFORMATION: Fall with head head strike, neck trauma COMPARISON: CT head from 01/27/2021 TECHNIQUE: Contiguous axial imaging was performed from the skull base to vertex without intravenous administration of contrast. In addition, helical noncontrast CT imaging was acquired through the cervical spine and source images were reviewed along with axial reconstructions and sagittal and coronal MPRs. All CT exams at this location are performed using dose optimization techniques as appropriate to a performed exam including at least one of the following: * Automated exposure control * Adjustment of the mA and/or kV according to patient size (this includes techniques or standardized protocols for targeted exams where dose is matched to indication / reason for exam; i/e/ extremities or head) * Use of iterative reconstructive technique DLP: 1595 mGy-cm FINDINGS: HEAD: Mild right frontal superficial scalp swelling. No intracranial mass, hemorrhage, or midline shift is visualized. Generalized atrophy is seen. Ventricles are prominent in size due to underlying atrophy. No extra-axial collections are identified. There is diffuse mucosal thickening of the bilateral ethmoid air cells and right frontal sinus. CERVICAL SPINE: There is no evidence of acute cervical spine fracture. Vertebral body height and alignment is well maintained. No pre- or paravertebral soft tissue abnormality is identified. Severe diffuse degenerative disc disease noted throughout the cervical spine there is near complete fusion in loss of disc space from C4 through C7. Left greater than right posterior facet arthropathy is seen. Facet joints are otherwise well maintained. Limited assessment of the lung apices is unremarkable. CT/CT head/brain wo IV con IMPRESSION: 1. No acute intracranial pathology. 2. No CT evidence of acute cervical spine fracture or traumatic subluxation. 3. Severe diffuse degenerative disc disease and facet arthropathy. Independent Historian Clinical information obtained from an independent historian. History obtained from or confirmed by: Spouse External Record Review External record reviewed: Outpatient record, Prior outpatient labs and Prior outpatient radiology Prescription Management I considered prescription management with: Pain Medication Chronic Conditions Patient?s care impacted by: Hypertension and Other (obesity, back pain) Critical Care Time Critical Care Time Critical Care Time: No Discharge Plan Discharge Clinical Impression: Low back pain, Recurrent falls Patient Disposition: Still a Patient Prescriptions: No Action lidocaine [Lidoderm] 5 % adhesive patch,medicated 1 patch topical DAILY MDD remove after 12 hours PRN (Reason: pain) Qty: 30 0RF Rx Instructions: leave on most painful area for up to 12 hrs morphine 15 mg tablet 15 mg PO Q6H PRN (Reason: pain (scale score 7-10)) 3 Days Qty: 9 0RF Rx Instructions: Partial Fill upon patient request. naproxen 500 mg tablet 500 mg PO BID PRN (Reason: pain) 10 Days Qty: 20 0RF cyclobenzaprine 5 mg tablet 5 mg PO Q8H PRN (Reason: pain (scale score 7-10)) 5 Days Qty: 14 0RF tamsulosin 0.4 mg capsule 0.4 mg PO DAILY finasteride 5 mg tablet 5 mg PO DAILY naproxen 500 mg tablet 500 mg PO BID PRN (Reason: pain) ezetimibe 10 mg tablet 10 mg PO DAILY lisinopril 10 mg tablet 10 mg PO DAILY omega-3 fatty acids [Fish Oil Concentrate] 1,000 mg capsule 1,000 mg PO DAILY aspirin 81 mg tablet,delayed release (DR/EC) 81 mg PO DAILY tamsulosin 0.4 mg capsule 0.4 mg PO DAILY Print Language: Romansh
[2024-05-12 13:40] LABS: Appearance Urine Clear; Color Urine Yellow; Glucose Urine UA Negative (Negative); Leukocyte Esterase Urine Negative (Negative); Nitrite Urine Negative (Negative); PH 5.5 (5.0-9.0); Urine Blood Negative (Negative); Urine Ketones Negative (Negative); Urine Protein Negative (Neg-Trace)
[2024-05-12 14:00] VITALS: BP 168/78; PULSE 67; RESP 17; TEMP 36; O2SAT 96
[2024-05-12] MEDS: Acetaminophen 325 MG TABLET 975 MG PO ×2 (14:03→20:12)
[2024-05-12] MEDS: oxyCODONE HCl Immed Release 5 MG TABLET PO ×3 (14:04→23:54)
[2024-05-12] MEDS: Lidocaine 4 % Patch ADH..PATCH 1 PATCH TRANSDERMA (15:34)
[2024-05-12] MEDS: Ibuprofen 600 MG TABLET PO (15:38)
--- NOTE | 2024-05-12 15:43 | PC.NURSE ---
PT medicated per NOV. Rates pain 9 out 10 numeric pain scale, old lidocaine patch removed and back was washed and dried before placing new lidocaine patch on midback area. Pt resting, call brody within reach.
--- NOTE | 2024-05-12 17:16 | PC.NURSE ---
Attempted ambulation trial, pt could not sit up in bed alone stated he was in a lot of pain, gait unsteady when standing up.
[2024-05-12 18:00] VITALS: BP 151/76; PULSE 90; RESP 14; TEMP 36.8; O2SAT 97
--- NOTE | 2024-05-12 18:22 | PC.NURSE ---
Pt med rec completed- report given to Luis Fernando RN
[2024-05-12 19:08] VITALS: BP 150/72; PULSE 60; RESP 18; TEMP 36.8; O2SAT 98
[2024-05-12] MEDS: Cyclobenzaprine HCl 5 MG TABLET PO (19:13)
--- NOTE | 2024-05-12 19:28 | MHC.EDTECH ---
This tech took over care of patient at 1900,hourly rounds and vitals completed,partient placed in hospital bed for comfort, patient was bladder scanned 317MLS ,RN was made aware
--- NOTE | 2024-05-12 19:35 | PC.NURSE ---
Pt transferred to a hospital bed. sml amount of urine in [place] cath tubing. brought food/drink. tolerated transfer with some pain despite premedication with flexaril.
--- NOTE | 2024-05-12 20:04 | PC.NURSE ---
Deborah, , given update via phone.
[2024-05-12 23:33] VITALS: BP 139/71; PULSE 57; RESP 16; TEMP 36.3; O2SAT 92
[2024-05-13] MEDS: Acetaminophen 325 MG TABLET 975 MG PO ×3 (05:13→20:24)
[2024-05-13 07:23] VITALS: BP 178/101
[2024-05-13] MEDS: lisinopriL 10 MG TABLET PO (07:23)
[2024-05-13] MEDS: Tamsulosin HCL 0.4 MG CAPSULE PO (07:26)
[2024-05-13] MEDS: Aspirin Enteric Coated 81 MG TABLET.DR PO (07:26)
[2024-05-13] MEDS: Ezetimibe 10 MG TABLET PO (07:26)
[2024-05-13] MEDS: Finasteride 5 MG TABLET PO (07:26)
--- NOTE | 2024-05-13 07:59 | MHC.EDTECH ---
This tech assumed care of pt at 0700, pt was assisted to bedpan, pt was unable to release bowel movement, RNs aware, pt requested for bedpan to stay under him for a little while.
[2024-05-13] MEDS: Cyclobenzaprine HCl 5 MG TABLET PO (09:49)
[2024-05-13] MEDS: oxyCODONE HCl Immed Release 5 MG TABLET PO (09:49)
--- NOTE | 2024-05-13 11:20 | MHC.CM.ED ---
Received consult for assessment of d/c needs: Pt from home after fall: now having lower back pain and is unable to ambulate or stand: imaging does not support fx or obvious source of injury: Pt resides w/spouse, is independent w/care needs, uses a walker or cane - no services in place. Pt interested in acute vs STR to maximize functional ability to return to home. Pt states his home [place] and he needs to be able to navigate stairs. PT eval to occur on 05/14: broad referrals made to 3 acute centers and STR per pt choice. ED CM to await PT eval and payor auth for transfer. HCP on file and verified.
[2024-05-13 12:30] VITALS: BP 136/72; PULSE 53; RESP 17; O2SAT 94
[2024-05-13 14:00] VITALS: BP 139/71; PULSE 53; RESP 18; O2SAT 96
--- NOTE | 2024-05-13 19:00 | PC.NURSE ---
Report received from Markie LILLY, assume care of pt at this time
[2024-05-13 19:43] VITALS: BP 140/73; PULSE 68; RESP 16; TEMP 36.6; O2SAT 97
--- NOTE | 2024-05-13 19:44 | MHC.EDTECH ---
This pct assumed care o0f patient at 1900 ,vitals taken ,pt was incontinent of urine ,care given ,RN Julita is aware that Patient groin is excoriated and red .
--- NOTE | 2024-05-14 01:45 | PC.NURSE ---
resting quietly, with eyes closed, resp with ease, no s/s of acute distress
[2024-05-14 06:00] VITALS: BP 134/60; PULSE 62; RESP 16; TEMP 36.3; O2SAT 96
[2024-05-14] MEDS: Acetaminophen 325 MG TABLET 975 MG PO (06:07)
--- NOTE | 2024-05-14 06:25 | PC.NURSE ---
pt rested queitly during the night, resp with ease, no s/d of acute distress
[2024-05-14 08:30] VITALS: BP 168/90
[2024-05-14 09:20] VITALS: BP 168/90
[2024-05-14] MEDS: Finasteride 5 MG TABLET PO (09:20)
[2024-05-14] MEDS: lisinopriL 10 MG TABLET PO (09:20)
[2024-05-14] MEDS: Tamsulosin HCL 0.4 MG CAPSULE PO (09:20)
[2024-05-14] MEDS: Aspirin Enteric Coated 81 MG TABLET.DR PO (09:20)
--- NOTE | 2024-05-14 09:51 | MHC.CM.ED ---
Patient remains in ER overflow. Physical therapy eval completed. Short term rehab is recommended. No acute rehab bed offers at this time. Clinical updates sent to facilities still following: [facility], [facility] [address], and [facility]. Continue to monitor for d/c needs.
[2024-05-14] MEDS: Ezetimibe 10 MG TABLET PO (10:04)
--- NOTE | 2024-05-14 11:34 | MHC.CM.ED ---
Addendum entered by Lisbeth Headley 05/14/24 15:56: Insurance auth obtained. Ryan JAMES booked for 5pm. Patient, Tiffany Subramanian RN and Jyoti LILLY aware. Cynthia will bring patient's cpap. Addendum entered by Lisbeth Headley 05/14/24 13:34: Patient will bring his own Cpap to [facility]. Per Dr Kingsley's office, he has a regular Cpap 8cm. Original Note: [facility], [facility] and [facility] are able to offer a bed. Met with patient and , Cynthia. [facility] and [facility] been asked to obtain insurance auth. Continue to monitor for d/c needs.
[2024-05-14 14:00] VITALS: BP 116/87; PULSE 91; RESP 14; TEMP 36.6; O2SAT 95
--- NOTE | 2024-05-14 17:36 | PC.NURSE ---
Report given to Jenny Varags rehab services aide
[2024-05-14 18:28] VITALS: BP 107/69; PULSE 85; RESP 16; TEMP 37.1; O2SAT 95
[2024-05-14 18:40] VITALS: BP 107/69; PULSE 85; RESP 16; TEMP 37.1; O2SAT 95
== END 2024-05-14 18:40 | disposition skilled nursing facility (03) ==
PROVIDERS: Physician Assistant; Emergency Provider Emergency Medicine; PCP Internal Medicine
DX: M54.50 Low back pain, unspecified (principal); R29.6 Repeated falls; G47.33 Obstructive sleep apnea (adult) (pediatric); Z99.89 Dependence on other enabling machines and devices; Z79.899 Other long term (current) drug therapy
CPT/HCPCS: 70450; 72100; 72125; 81003; 97162; 99285

== ENCOUNTER 2024-05-20 07:10 | Emergency (ER) | payer MEDICARE, SELFPAY ==
--- NOTE | ~2024-05-20 | XR_ITS ---
EXAMINATION: XR LUMBOSACRAL SPINE CLINICAL INFORMATION: Back pain after fall last week COMPARISON: 05/12/2024 TECHNIQUE: Three views of the lumbosacral spine. FINDINGS: There is a slight levoscoliosis of the lower lumbar spine. Trace retrolisthesis of L3 on L4 is unchanged from prior. Alignment throughout the lumbar spine otherwise appears anatomic. Vertebral body heights are maintained. Prominent endplate osteophytes are noted throughout much of the lumbar spine. There is multilevel mild to moderate intervertebral disc space narrowing. There is suspected facet arthropathy of the lower lumbar spine. No acute fracture is seen. Sacroiliac joints appear intact. Redemonstrated aortic calcification as well as mild aneurysmal dilation as noted previously. XR/XR lumbar spine 2-3V IMPRESSION: 1. No acute findings identified. Chronic/degenerative changes as noted above. 2. Mildly aneurysmal, calcified abdominal aorta. As noted previously, ultrasound evaluation is recommended. Electronically signed by: Dada Amaya MD 05/20/2024 08:53 AM EDT
[2024-05-20 07:17] VITALS: BP 138/78; BP 146/75; PULSE 50; PULSE 55; RESP 18; TEMP 36.2; O2SAT 97; O2SAT 98; BMI 32.0
--- NOTE | 2024-05-20 07:32 | PC.NURSE ---
patient from rehab facility via EMS, states last night he went to sit up out of bed to go to the bathroom and got a shooting pain in his lower back.. patient denies falling down or lowering himself to the ground, states he sat on the edge of the bed until someone came to help him an then got in the ambulance to come here. patient states he is having 10/10 mid back pain and complaining of difficulty raising his right leg. patient with equal strength bilaterally. some difficulty lifting right leg unassisted, states he has had one physical therapy session since being admitted to the rehab. denies any other complaints, denies difficulty urinating or dysuria, denies fevers or chills, states he is only here for his sharp lower back pain
--- NOTE | 2024-05-20 07:39 | ED.BACK ---
HPI - Back Pain/Injury General Chief Complaint: Back Pain/Injury Stated Complaint: BACK PAIN/FALL Time Seen by Provider: 05/20/24 07:29 Source: patient, family ( spouse) and EMS Mode of arrival: EMS Limitations: no limitations History of Present Illness ED Provider: DR. Turner HPI Narrative: 83-year-old male with history of obesity, ROXY, history of recurrent falls, was seen and evaluated after he fell last week and complaining of hip and back pain, patient was kept in the ER for rehab placement, return for rehab facility today for a constant back pain that was very severe in the morning. No new falls, no dizziness, no chest pain, no palpitation, pain is localized to the lower back, no radiation, no urinary incontinence, stool incontinence, no dysuria, no frequency urination. Had lumbar spine x-ray on 05/07 and was repeated on 05/12 shows no acute compression fracture. 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 Related Data Home Medications ?Medication ?Instructions ?Recorded ?Confirmed ezetimibe 10 mg tablet 10 mg PO DAILY 09/01/20 05/12/24 lisinopril 10 mg tablet 10 mg PO DAILY 09/01/20 05/12/24 omega-3 fatty acids 1,000 mg 1,000 mg PO DAILY 09/01/20 05/12/24 capsule (Fish Oil Concentrate) aspirin 81 mg tablet,delayed 81 mg PO DAILY 10/05/22 05/12/24 release tamsulosin 0.4 mg capsule 0.4 mg PO DAILY 09/27/23 finasteride 5 mg tablet 5 mg PO DAILY 05/12/24 05/12/24 naproxen 500 mg tablet 500 mg PO BID PRN pain 05/12/24 05/12/24 tamsulosin 0.4 mg capsule 0.4 mg PO DAILY 05/12/24 05/12/24 Previous Rx's ?Medication ?Instructions ?Recorded cyclobenzaprine 5 mg tablet 5 mg PO Q8H PRN pain (scale score 05/07/24 7-10) 5 days #14 tabs lidocaine 5 % topical patch 1 patch topical DAILY PRN pain #30 05/07/24 (Lidoderm) ea morphine 15 mg immediate release 15 mg PO Q6H PRN pain (scale score 05/07/24 tablet 7-10) 3 days #9 tabs naproxen 500 mg tablet 500 mg PO BID PRN pain 10 days #20 05/07/24 tabs oxycodone 5 mg tablet 5 mg PO Q8H PRN pain (scale score 05/14/24 4-6) #9 tabs hydromorphone 2 mg tablet 2 mg PO Q6H PRN pain #7 tabs 05/20/24 (Dilaudid) Allergies Allergy/AdvReac Type Severity Reaction Status Date / Time No Known Allergies Allergy Verified 05/20/24 07:21 Review of Systems Review of Systems: All other systems are reviewed and are negative Constitutional: Reports as per HPI and Reports no additional constitutional complaints Eyes: Reports as per HPI and Reports no additional eye complaints Reports system reviewed and no additional complaints, except as documented Cardiovascular: Reports as per HPI and Reports no additional cardiovascular complaints Respiratory: Reports as per HPI and Reports no additional respiratory complaints Gastrointestinal: Reports as per HPI and Reports no additional gastrointestinal complaints Genitourinary: Reports no additional female genitourinary complaints Musculoskeletal: Reports no additional musculoskeletal complaints Skin/Breast: Reports system reviewed and no additional complaints, except as docu Psychiatric: Reports no additional psychiatric complaints Endocrine: Reports no additional endocrine complaints Hematologic/Lymphatic: Reports no additional hematologic/lymphatic complaints Allergic/Immunologic: Reports no additional allergic/immunologic complaints Reports system reviewed and no additional complaints, except as documented and Reports Abnormal speech present [facility] Past Medical History Medical History ROXY on CPAP Obesity Social History Social History Smoked in Last 30 Days: No Use of substances other than those prescribed or required for medical reasons: No Advance Directives: Yes Advance Directives on File: Yes Advance Directives Date on File: 02/01/22 Do you have a plan to hurt others: No Plan Physical Exam Vital Signs: Vital Signs: Last Vital Signs Temp 98.2 F 05/20/24 09:27 Pulse 49 L 05/20/24 09:27 Resp 18 05/20/24 09:27 BP 154/76 H 05/20/24 09:27 Pulse Ox 97 05/20/24 09:27 O2 Del Method Room Air 05/20/24 09:27 BMI result Body Mass Index 32.0 Vital signs have been reviewed and appear to be correct. Blood pressure elevated. Heart rate normal. Respiratory rate normal. Temperature normal. Oxygen saturation normal. Appearance: Alert. Oriented X3. No acute distress. Head: Normal external exam. Normocephalic. Atraumatic. No Dye signs noted. No raccoon eyes noted Eyes: PERRLA. EOMI. Conjunctiva and sclera normal. Eyelids normal. ENT: TM's Normal. Pharynx normal. Uvula midline. Moist mucous membranes. No trismus noted. No drooling noted. No muffled voice noted. Neck: Normal inspection. Neck supple. FROM. No adenopathy. Thyroid Normal. No meningeal signs. No neck mass noted. CVS: Normal heart rate and rhythm. Heart sound normal. No murmurs noted. Pulses normal throughout. Respiratory: No respiratory distress. Painless inspiration. Breath sounds normal. No wheezes/rales/rhonchi noted. Chest nontender. No accessory muscle usage noted or decreased air movement noted. Abdomen: Soft and nontender. Bowel sounds normal in all 4 quadrants. No distention noted. No organomegaly noted. No visible injury noted. Back: No CVA tenderness. Full range of motion noted. Skin: Skin warm and dry. Normal skin color. Normal skin turgor. No rashes/lesions/lacerations noted. Extremities: No lower extremity edema. Extremities exhibit normal range of motion. Extremities nontender. Neuro: Oriented X 3. Cranial nerve exam: II-XII are grossly intact No motor deficit. No sensory deficit. Reflexes normal. Course Reevaluation(s) Reevaluation #1: 83-year-old male with acute on chronic back pain started after a fall week ago, patient had previous evaluation an x-ray for the fall now his at rehab receiving physical therapy return for bad back pain that is not controlled with oxycodone, patient received Dilaudid orally in the emergency department with good relief of the pain. Lumbar spine x-ray show no acute pathology will send the patient back to rehab facility. Stable AAA less than 4 cm, stable vital signs, no abdominal pain. Time: 10:32 Medications Administered Discontinued Medications Generic Name Dose Route Start Last Admin Trade Name Freq PRN Reason Stop Dose Admin Hydromorphone HCl 2 mg 05/20/24 07:38 09/01/24 07:59 Hydromorphone Hcl 2 Mg Tablet PO 05/20/24 07:39 2 mg ONCE ONE Administration Medical Decision Making Differential Diagnosis Differential Diagnoses: The differential diagnosis associated with the presentation includes (Compression fracture, muscle spasm, back strain, UTI.) Admission/Observation Consideration of admission/observation: Escalation of care including admission/observation considered Lab Data MDM Lab Attestation statement: I reviewed the patient's lab results. Independent Interpretation I performed an independent interpretation of an: Plain X-Ray (Lumbar spine:1. No acute findings identified. Chronic/degenerative changes as noted above. 2. Mildly aneurysmal, calcified abdominal aorta. As noted previously, ultrasound evaluation is recommended. ) Radiology Impression Discussion of test interpretation with radiology: I have reviewed the radiologist's reading. Chronic Conditions Patient?s care impacted by: Other (Chronic back pain) Discharge Plan Discharge Clinical Impression: Back pain Patient Disposition: [facility] Instructions: Back Pain (ED) Prescriptions: New hydromorphone [Dilaudid] 2 mg tablet 2 mg PO Q6H PRN (Reason: pain) Qty: 7 0RF Rx Instructions: Partial Fill upon patient request. No Action lidocaine [Lidoderm] 5 % adhesive patch,medicated 1 patch topical DAILY MDD remove after 12 hours PRN (Reason: pain) Qty: 30 0RF Rx Instructions: leave on most painful area for up to 12 hrs morphine 15 mg tablet 15 mg PO Q6H PRN (Reason: pain (scale score 7-10)) 3 Days Qty: 9 0RF Rx Instructions: Partial Fill upon patient request. naproxen 500 mg tablet 500 mg PO BID PRN (Reason: pain) 10 Days Qty: 20 0RF cyclobenzaprine 5 mg tablet 5 mg PO Q8H PRN (Reason: pain (scale score 7-10)) 5 Days Qty: 14 0RF tamsulosin 0.4 mg capsule 0.4 mg PO DAILY finasteride 5 mg tablet 5 mg PO DAILY naproxen 500 mg tablet 500 mg PO BID PRN (Reason: pain) oxycodone 5 mg tablet 5 mg PO Q8H PRN (Reason: pain (scale score 4-6)) Qty: 9 0RF Rx Instructions: Partial Fill upon patient request. ezetimibe 10 mg tablet 10 mg PO DAILY lisinopril 10 mg tablet 10 mg PO DAILY omega-3 fatty acids [Fish Oil Concentrate] 1,000 mg capsule 1,000 mg PO DAILY aspirin 81 mg tablet,delayed release (DR/EC) 81 mg PO DAILY tamsulosin 0.4 mg capsule 0.4 mg PO DAILY Referrals: Chad Funk MD [Primary Care Provider] - Print Language: Georgian
[2024-05-20] MEDS: HYDROmorphone HCl 2 MG TABLET PO (07:59)
[2024-05-20 09:27] VITALS: BP 154/76; PULSE 49; RESP 18; TEMP 36.8; O2SAT 97
--- NOTE | 2024-05-20 09:30 | PC.NURSE ---
patient endorsing some difficulty using bathroom, unable to place condom catheter d/t anatomy, purewick placed on patient with good effect, patient called and given update
[2024-05-20 10:31] LABS: Appearance Urine Clear; Color Urine Dark Yellow; Glucose Urine UA Negative (Negative); Leukocyte Esterase Urine Trace (Negative); Nitrite Urine Negative (Negative); PH 5.5 (5.0-9.0); Specific Gravity - Urine >= 1.030 (1.005-1.025); UMIC TRIGGER UACC YES; Urine Blood Negative (Negative); Urine Ketones Negative (Negative); Urine Protein Negative (Neg-Trace)
[2024-05-20 10:36] LABS: Bacteria Urine None Seen (None Seen); Hyaline Casts Urine 0-2 /LPF (0-2); RBC Urine 0-2 /HPF (0-2); Squamous Epithelial Cell Urine 0-2 /HPF (0-2); WBC Urine 0-5 /HPF (0-5)
[2024-05-20 12:22] VITALS: BP 154/76; PULSE 49; RESP 18; TEMP 36.8; O2SAT 97
== END 2024-05-20 12:23 | disposition skilled nursing facility (03) ==
PROVIDERS: Emergency Provider Emergency Medicine; PCP Internal Medicine
DX: M54.50 Low back pain, unspecified (principal); M25.552 Pain in left hip; M25.551 Pain in right hip; Z91.81 History of falling; Z79.899 Other long term (current) drug therapy
CPT/HCPCS: 72100; 81001; 99283; 99284

== ENCOUNTER 2024-08-20 10:28 | Outpatient (REF) | payer MEDICARE, SELFPAY ==
[2024-08-20 10:51] LABS: MANUAL DIFF FLAG NO
[2024-08-20 11:54] LABS: Basophils Absolute Auto 0.1 X10*3/uL (0.0-0.2); Basophils Percent Auto 0.6 % (0-2); Eosinophils Absolute Auto 0.2 X10*3/uL (0.0-0.4); Eosinophils Percent Auto 2.2 % (0-4); Hematocrit 48.5 % (42.0-52.0); Imm Gran Abs Auto 0.03 X10*3/uL (0.00-0.03); Imm Gran Pct Auto 0.4 % (0.0-0.4); Lymphocytes Absolute Auto 1.4 X10*3/uL (1.2-4.9); Lymphocytes Percent Auto 17.9 % (20-40); Mean Corpuscular Hemoglobin 31.4 pg (27.0-33.0); Mean Corpuscular Volume 95.1 fL (80.0-98.0); Mean Platelet Volume 9.8 fL (9.4-12.4); Monocytes Absolute Auto 0.9 X10*3/uL (0.1-1.2); Monocytes Percent Auto 11.2 % (2-11); Neutrophils Absolute Auto 5.5 x10*3/uL (2.0-8.3); Neutrophils Percent Auto 67.7 % (45-73); Platelet Count 188 X10*3/uL (160-400); Red Cell Distribution Width 13.7 % (11.0-16.0); White Blood Count 8.1 X10*3/uL (4.8-10.8)
[2024-08-20 12:30] LABS: Alanine Aminotransferase 16 U/L (0-40); Albumin Level 3.7 g/dL (3.5-5.0); Alkaline Phosphatase 73 U/L (39-117); Anion Gap 8 (12-20); Aspartate Amino Transferase 22 U/L (5-37); Bilirubin Total 0.8 mg/dL (0.0-1.0); Blood Urea Nitrogen 23 mg/dL (9-16); Calcium 9.4 mg/dL (8.4-10.2); Carbon Dioxide 31 mmol/L (22-29); Chloride 105 mmol/L (96-108); Estimated Glomerular Filt Rate 60; Glucose Random 82 mg/dL (60-115); Magnesium 2.2 mg/dL (1.6-2.6); Sodium 140 mmol/L (135-145); Total Protein 6.8 g/dL (6.5-8.0)
[2024-08-20 12:47] LABS: Free T4 (Free Thyroxine) 1.08 ng/dL (0.71-1.85); Thyroid Stimulating Hormone 3.38 uIU/mL (0.32-4.0)
== END 2024-08-20 10:29 | disposition home or self-care (01) ==
LOC: HO.LAB 10:28
PROVIDERS: PCP Internal Medicine; Visit Provider Internal Medicine
DX: I48.91 Unspecified atrial fibrillation (principal); I10 Essential (primary) hypertension; N40.0 Benign prostatic hyperplasia without lower urinary tract symptoms
CPT/HCPCS: 36415; 80053; 83735; 84439; 84443; 85025

== ENCOUNTER 2024-08-27 09:49 | Outpatient (AMB) | payer MEDICARE, SELFPAY ==
--- NOTE | 2024-08-27 09:52 | MHC.OFFVIS ---
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 Patient was a 83-year-old pleasant male with prior history of hypertension, obstructive sleep apnea, obesity, recently had a routine EKG for irregular pulse. EKG quality was poor with lot of artifactual baseline wandering and suspicion raised for atrial fibrillation. He was therefore started on Eliquis therapy. He was no symptoms. Denies any irregular heartbeat or prolonged palpitations or lightheadedness syncope. He said few months ago he had a fall related to sudden weakness in his both his lower extremities. Subsequently had a workup done with no obvious cause. Since then he has been walking with a walker with no falls. Denies any other cardiac symptoms. He is currently both on Eliquis and aspirin therapy. He said his blood pressure is well controlled. Denies any chest pain, shortness of breath, orthopnea, PND, leg edema. [facility] Medical History HTN (hypertension) ROXY on CPAP Obesity Family History Father Heart attack Mother Heart attack Social History Alcohol intake: current Alcohol intake frequency: 0-2 drinks per day Alcohol type: wine Patient Tobacco Use Status: Former Tobacco user Advance Directives Date on File: 02/01/22 Review of Systems Const Denies chills, Denies daytime sleepiness, Denies fatigue, Denies fever(s), Denies poor appetite, Denies snoring, Denies stops breathing during sleep, Denies weakness, Denies weight gain and Denies weight loss Eyes Denies loss of vision ENT Denies dizziness and Denies hearing loss Card Denies chest pain, Denies irregular heart rhythm, Denies claudication, Denies leg edema, Denies lightheadedness, Denies palpitations, Denies dyspnea on exertion and Denies orthopnea Resp Denies cough, Denies excessive phlegm production, Denies dyspnea on exertion, Denies snoring and Denies wheezing GI Denies abdominal pain, Denies hematochezia, Denies change in bowel habits, Denies nausea and Denies vomiting Denies dysuria and Denies urinary frequency Musc Denies arthralgias, Denies muscle weakness, Denies numbness and Denies other Skin/Breast Denies nail changes and Denies rash Neuro Denies Abnormal speech present, Denies dizziness, Denies loss of vision, Denies memory loss, Denies numbness and Denies weakness Psych Denies depression and Denies memory loss Endo Denies fatigue and Denies palpitations Cm/Lymph Denies easy bruising Aller/Immun Denies wheezing Physical Exam Vital Signs: Last Vital Signs Pulse 88 08/27/24 09:54 BP 110/64 08/27/24 09:54 BMI result Body Mass Index 31.4 Const General: cooperative, comfortable, no acute distress, alert, awake and Physically active Nutritional Appearance: obese Orientation/consciousness: patient oriented x3 Limitations: ambulation with walker HEENT Head: Yes normocephalic and Yes atraumatic Neck Neck: Yes trachea midline, Yes supple and Yes no JVD Resp Effort & Inspection: normal respiratory effort Auscultation: clear to auscultation bilaterally Cardio Jugular venous distension: no JVD Palpation: normal PMI Rate: regular rate Rhythm: regular rhythm Heart sounds: S1 normal heart sound present, S2 normal heart sound present, no click, no gallops, no murmurs and no rubs Bruits: no carotid bruits GI Auscultation: normal bowel sounds Skin General skin exam: no rashes or lesions noted Neuro General: patient oriented x3 and no focal motor deficits Speech: No Abnormal speech present Extrem General: Yes no clubbing, cyanosis or edema Psych Appearance: grossly normal Office Procedures EKG Details: EKG today shows normal sinus rhythm first-degree AV block with PVCs with incomplete right bundle-branch block and isolated Q-wave in lead 3 suggestive of pseudo infarct related to abdominal obesity 52049-Mssvwwtmskckakecg, Complete Assessment & Plan Assessment & Plan (1) Paroxysmal atrial fibrillation: Code(s): I48.0 - Paroxysmal atrial fibrillation Category: Medical Plan: Possible atrial fibrillation although there was no clear conclusive evidence on EKG from your office or today he presents here in sinus rhythm. He was obviously no symptoms. Important to diagnose if he has atrial fibrillation this would definitely private branch exchange operator plan. He was told that he has had prior TIA/stroke on brain imaging. This raises the possibility of underlying atrial fibrillation. He is currently on Eliquis therapy. I discussed with him that in appropriate setting if he does have atrial fibrillation Eliquis as a safe and very effective therapy. For now because of lack of evidence I would continue the Eliquis therapy. However does not need dual therapy with aspirin as well. I have discussed to discontinue aspirin therapy to reduce bleeding risk. I will follow-up with 30 day cardiac event monitor with mobile telemetry to assess for presence of atrial fibrillation. Also suggest an echocardiogram to evaluate for structural heart evaluation. He is understanding of the same. I have discussed about fall prevention techniques. Continue aggressive management of lipids given his prior stroke with target goal LDL less than 70 mg/dL being pursue through office. Continue CPAP therapy (2) HTN (hypertension): Code(s): I10 - Essential (primary) hypertension Plan: History of hypertension in the past. This is well controlled. Continue lisinopril therapy. Continue participate in weight loss program. Low-salt diet was discussed. Continue CPAP therapy. Importance of good blood pressure control was discussed. Will follow up in the clinic in 2 months time, sooner p.r.n.. Thank you for allowing me to partake in his care Orders: Orders ECG 30 day event monitor Today I48.0 - Paroxysmal atrial fibrillation CA echo transthoracic complete Today I48.0 - Paroxysmal atrial fibrillation Coding Level of Care Code New Pt Level 4 (50491) Complex EM visit Add On G2211 Diagnoses Paroxysmal atrial fibrillation I48.0 HTN (hypertension) I10 CPT Codes EKG - CPT: 50977-Vgiygevjebhzwstuy, Complete ([id number])
[2024-08-27 09:54] VITALS: BP 110/64; PULSE 88; BMI 31.4
--- OUTSIDE RECORDS SUMMARY | 2024-08-29 14:13 | XMS_ITS ---
Author Organization [facility] Address [address] [place] [id number] Care Team Providers Care Steamtable Worker Name Role Phone Blessing OSPINA, Chad Primary Care Provider Laney Mirza [phone] Hernandez Encounters Encounter Location Date Provider Diagnosis [address] [address] 06/29/2024 Laney Barrera Plan Of Treatment Next Appt Details Provider Name:Laney martinez, 09/11/2024 10:00:00 AM, [address] [place] [address], [phone], Progress Notes * Jon LEACH MDOB: [birth year] (83 yo M)Acc No.[id number]:06/29/2024 Progress Note Patient:?Jon LEACH Provider:?Laney Barrera DPM :1940???Age:83 Y???Sex:Male Erik e:06/29/2024 Address:[address] [place] [address] [address] [address] [facility] [id number] Pcp:Chad Funk MD Subjective: * Chief Complaints: * ???1. Dr Hernandez. * Medical History:? Objective: * Vitals:? Assessment: Plan: * Treatment: * Images: * The named appointment provid er may or may not be the originator of this progress note, and it is not deemed complete until electronically signed by the appointment provider. Sign off status: Pending * Provider:?Laney Barrera DPM Date:?07/2024 Generated for Haris barton/Benjamin/Misbah on:?08/29/2024 02:13 PM EST
--- OUTSIDE RECORDS SUMMARY | 2024-08-29 14:13 | XMS_ITS ---
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 Name Role Phone Chad Funk MD Primary Care Provider Laney Mirza Unavailable [phone] Allergies No Known Allergies REASON FOR VISIT Painful nail(s) aggrevated by shoes causing difficulty standing/walking, Skin Problem Medications Medication SIG (Take, Route, Frequency, Duration) Notes Start Date End Date Status Zetia 10 MG 1 tablet Orally Once a day for 30 day(s) 08/23/2023 Active Finasteride 5 MG Oral for 90 Days Active Tamsulosin HCl 0.4 MG Oral for 90 Days Active Lisinopril 10 MG Oral for 90 Days Active Baby Aspirin 08/23/2023 Active Fish Oil 1000 MG 1 capsule Orally Onc e a day for 30 day(s) 08/23/2023 Active Ciclopirox Olamine 0.77 % 1 application Externally Twice a day for 30 days Not-Taki oralia Social History Tobacco Use: Social History Observation Description Date Details (start date - stop date) Former Smoker NA - NA Tobacco Use/Smoking Question Answer Notes Are you a: former smoker Additional Findings: Tobacco Non-User Current no n-smoker Alcohol Screen Question Answer Notes Did you have a drink contain ing alcohol in the past year? Yes How often did you have a dri nk containing alcohol in the past year? 4 or more times a week (4 points) How often did you have 6 or more drinks on one occasion in the past year? Daily or almost daily (4 points) Points 8 Interpretation Positive Tobacco use other than smoking: Question Answer Notes Are you an other tobacco user? No Vital Signs Height 5 ft 11 in in 07/06/2024 Weight 230 lbs 07/06/2024 BMI 32.07 kg/m2 07/06/2024 Blood pressure systolic 116 mm Hg 07/06/20 24 Blood pressure diastolic 90 mm Hg 024 Encounters Encounter Location Date Provider Diagnosis [facility] [place] [address] [place] [address] 07/06/2024 Laney Barrera Tinea unguium B35.1 ; Tinea pedis of both feet B35.3 ; Pain in right toe(s) M79.674 and Pain in left toe(s) M79.675 Assessments Encounter Date Diagnosis (ICD Code) Assessment Notes Treatment Notes Treatment Clinical Notes Section Notes 07/06/2024 Tinea unguium (ICD-10 - B35.1) 07/06/2024 Tinea pedis of both feet (ICD-10 - B35.3) 07/06/2024 Pain in right toe(s) (ICD-10 - M79.674) 07/06/2024 Pain in left toe(s) (ICD-10 - M79.675) Plan Of Treatment Next Appt Details Follow Up: 2 Months, Reason: Provider Name:Laney martinez, 09/11/2024 10:00:00 AM, [address] [place] [address], [id number], Procedure Notes * Category Sub-Category Detail Notes Debride Nail 6-10 Nail debridement Nail debridem ent performed extensively to reduce/remove overall nail length, girth, thickness, subungual debris, and necrotic tissue, by manual and electrical means through the use of a nail nipper and/or dremel, to more viable healthy nail plate or bed tissue 1-5. Silver nitrate used for any petechial bleeding as necessary. Patient chooses, no pharmaceutical tx (96246) Progress Notes * Jon LEACH MDOB: [birth year] (83 yo M)Acc No.[id number]:07/06/2024 Progress Note Patient:?Jon Leach Provider:?Laney Barrera DPM :1940???Age:83 Y???Sex:Male Erik e:07/06/2024 Address:[address] [place] [address] [place] Pcp:Chad Funk MD Subjective: * Chief Complaints: * ???Painful nail(s) aggrevate d by shoes causing difficulty standing/walkingSkin Problem * HPI: ???Painful Nails:?Pt States Last PCP Visit:?Date:?12/30/2023 ???Skin problems:?Nature:?scaling , redness.?Location:?B/L .?Course:?improved.?Treatments:?Medication (Ciclopirox Olamine 0.77 Cream).? * ROS:?General/Constitutional:?Nausea?denies.?Vomiting?denies.?Hunger Thirst?denies.?Loss appetite?denies.?Chills?denies.?Fatigue?denies.?Fever?denies.?Night Sweats?denies.?Unexplained weight loss?denies.?Unexplained weight gain?denies.?HEENTM:?Dentures?denies.?Dizziness?denies.?Glasses/contacts?admits.?Retinopathy?de nies.?Blurred/double vision?denies.?TMJ?denies.?Discharge/drainage?denies.?Implants?denies.?Sore throat?denies.?Dental implants?denies.?Hard of hearing ?denies.?Difficulty chewing/swallowing/speaking?denies.?Nose bleeds?denies.?Sore mouth?denies.?Respiratory:?On Oxygen?denies.?Pneumonia/pleurisy?denies.?Bronchitis?denies.?Emphysema?denies.?C oughing?denies.?Cough blood?denies.?Shortness of breath?denies.?Wheezing?denies.?Cardiovascular:?Pacemaker?denies.?MVP?denies.?WPW?denies.?CHF?denies.?Heart attack?denies.?Septal defect?denies.?Rapid beat?denies.?Chest pain ?denies.?Atrial Fib.?denies.?Murmur/Palpitations?denies.?Gastrointestinal:?Hemorrhoids?denies.?Stomach/Abdominal pain?denies.?Dark blood stool?denies.?Irritable bowel ?denies.?Constipation?denies.?Diarrhea?denies.?Hematology:?Swelling?denies.?Clots?denies.?Varicose Veins?denies.?Bruising?denies.?Bleeding problem?denies.?Genitourinary:?Blood urine?denies.?Frequent/Painfu/urination/bladder control?admits.?Kidney stones?denies.?Infection (UTI)?denies.?Nephropathy?denies.?sex trans dis (STD)?denies.?Prostate?denies.?Musculoskeletal:?Hammertoes?denies.?Bunions?denies.?Back Pain?admits.?Muscle Cramps/ Resting?denies.?Muscle cramps / walking?denies.?Generalized aches and pains?denies.?Weakness?admits.?Integ.:?Kessler?denies.?Scars?denies.?Corns/calluses?denies.?Ingrown nails?denies.?Painful nails?denies.?Open Sores?denies.?Rashes?denies.?Neurologic:?Difficulty sleeping?denies.?Brain disorder?denies.?Numbness?denies.?Balance trouble?admits.?Confusion?denies.?Fainting/blackouts?denies.?Tingling?denies.?Tr emors?denies.? * Medical History:? * Surgical History:?appendecto my wisdom teeth extraction tonsillectomy colonoscopy back surgery- under scapula * Hospitalization/Major Diagno stic Procedure:[facility]/2024 * Family History:?Mother: dece ased, diagnosed with Unspecified heart disease.?Father: .? * Social History:?Tobacco Use:?Tobacco Use/Smoking?Are you a:?former smoker ?Additional Findings: Tobacco Non-User?Current non-smoker ?Tobacco use other than smoking?Are you an other tobacco user??No ???Drugs/Alcohol:?Drugs?Have you used drugs other than those for medical reasons in the past 12 months??No ?Alcohol Screen?Did you have a drink containing alcohol in the past year??Yes ?How often did you have a drink containing alcohol in the past year??4 or more times a week (4 points) ?How often did you have 6 or more drinks on one occasion in the past year??Daily or almost daily (4 points) ?Points?8 ?Interpretation?Positive ???Miscellaneous:?Caffeine: yes, 1 cups per day. ?no Children. ?Exercise: yes, walking. ?Marital status: . 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 * Medications:?TakingZetia 10 MG Tablet 1 tablet Orally Once a dayFinasteride 5 MG Tablet Oral Lisinopril 10 MG Tablet Oral Tamsulosin HCl 0.4 MG Capsule Oral Baby Aspirin Fish Oil 1000 MG Capsule 1 capsule Orally Once a dayTaking Zetia 10 MG Tablet 1 tablet Orally Once a dayTaking Finasteride 5 MG Tablet Oral Taking Lisinopril 10 MG Tablet Oral Taking Tamsulosin HCl 0.4 MG Capsule Oral Taking Baby Aspirin Taking Fish Oil 1000 MG Capsule 1 capsule Orally Once a dayNot-Taking/PRNCiclopirox Olamine 0.77 % Cream 1 application Externally Twice a dayMedication List reviewed and reconciled with the patientNot-Taking/PRN Ciclopirox Olamine 0.77 % Cream 1 application Externally Twice a dayMedication List reviewed and reconciled with the patient * Allergies:?N.K.D.A.yes[Aller gies Verified] Objective: * Vitals:?Ht: 5 ft 11 in, Wt: 230, BMI: 32.07, Shoe size: 9.5, BP: 116/90 mm Hg, Ht-cm: 180.34 cm, Wt-k.33 kg. * Examination: ???General Examination: ?GENERAL APPEARANCE:?Reveals a pleasant, alert, well-nourished, well- developed, well hydrated individual, who demonstrates proper attention to hygiene/body habitus, and is in no acute distress, Pt serves as own?historian for office visit today.?ORIENTED:?person, place, and time.?Neurological: ?SENSORY:?Neurological exam reveals intact sensorium, pain sensation normal, vibration sensation intact, pinprick sensation is normal in the lower extremities, Pt denies, anesthesia, burning, paresthesia, tingling, B/L.?DEEP TENDON REFLEXES:?Achilles, 2/4, B/L.?Vascular: ?DP PULSES(B):?3/4, B/L.?PT PULSES(B):?3/4, B/L.?CAPILLARY FILL TIME:?immediate, all digits, B/L.?TROPHIC CONDITION-TEXTURE/ELASTICITY/TURGOR/HAIR GROWTH(B):?normal, B/L.?TEMPERTURE GRADIENT(C):?warm to cool, proximal to distal, B/L.?PIGMENTATION:?normal, B/L.?EDEMA(C):?absent, B/L.?Dermatologic: ?SKIN FINDINGS:?Skin shows approximately _95__% LESS sign(s) of, erythema, scaling, in a moccasin fashion, no fissure(s) present, B/L.?Orthopedic: ?MUSCLE STRENGTH:?5/5 all groups in a symmetrical fashion , B/L.?Nails: ?NAILS are:?Elongated, overgrown, dystrophic, lytic, greater than 3mm thick, discolored and friable with crumbly malodorous subungual debris, with pain on palpation 1-5 B/L.? Assessment: * Assessment: 1.?Tinea unguium - B35.1 (Pr imary)?2.?Tinea pedis of both feet - B35.3, Acute problem, Uncomplicated (3),Rx drug management (4)?3.?Pain in right toe(s) - M79.674?4.?Pain in left toe(s) - M79.675? Plan: * Treatment: * Procedures:?Debride Nail 6-10:?Nail debridement?Nail debridement performed extensively to reduce/remove overall nail length, girth, thickness, subungual debris, and necrotic tissue, by manual and electrical means through the use of a nail nipper and/or dremel, to more viable healthy nail plate or bed tissue 1-5. Silver nitrate used for any petechial bleeding as necessary. Patient chooses, no pharmaceutical tx (54917).? * Procedure Codes:?81838 DEBRI DE NAIL, 6 OR MORE, Modifiers: XS * Follow Up:?2 Months * Images: * Sign off status: Completed true * Provider:?Laney Barrera, BERTA Date:? Generated for Haris barton/Benjamin/Misbah on:?08/29/2024 02:13 PM EST History and Physical Notes * HPI (History of Present Illness) Category Sub-Category Detail Notes Category Not es Painful Nails Pt States Last PCP Visit: Date:: 12/30/2023 Skin problems Nature: scaling , redness Location: B/L Course: improved Treatments: Medication (Ciclopir ox Olamine 0.77 Cream) Examination Category Sub-Category Detail Notes Category Not es Neurological SENSORY: Neurological exa m reveals intact sensorium, pain sensation normal, vibration sensation intact, pinprick sensation is normal in the lower extremities, Pt denies, anesthesia, burning, paresthesia, tingling, B/L DEEP TENDON REFLEXES: Achilles, 2/4, B/L Dermatologic SKIN FINDINGS: Skin shows appro ximately _95__% LESS sign(s) of, erythema, scaling, in a moccasin fashion, no fissure(s) present, B/L Orthopedic MUSCLE STRENGTH: 5/5 all groups in a symm etrical fashion , B/L General Examination GENERAL APPEARANCE: Reveals a pleasant, alert, well- nourished, well-developed, well hydrated individual, who demonstrates proper attention to hygiene/body habitus, and is in no acute distress, Pt serves as own historian for office visit today ORIENTED: person, place, and t francy Vascular DP PULSES(B): 3/4, B/L PT PULSES(B): 3/4, B/L CAPILLARY FILL TIME: immediate, all digi ts, B/L TEMPERTURE GRADIENT(C): warm to cool, pr oximal to distal, B/L TROPHIC CONDITION-TEXTURE/ELASTICITY/TURGOR/HAIR GROWTH(B): normal, B/L EDEMA(C): absent, B/L PIGMENTATION: normal, B/L Nails NAILS are: Elongated, overg rown, dystrophic, lytic, greater than 3mm thick, discolored and friable with crumbly malodorous subungual debris, with pain on palpation 1-5 B/L
--- OUTSIDE RECORDS SUMMARY | 2024-08-29 14:14 | XMS_ITS ---
Author Organization [facility] concetta Etoile Address [address] [facility] [place] [address] Care Team Providers Care Insurance Account Assistant Name Role Phone Chad Funk MD Primary Care Provider Laney Mirza Unavailable [phone] Allergies No Known Allergies REASON FOR VISIT Pcp- 01/10, Painful nail(s) aggrevated by shoes causing difficulty standing/walking, Skin Problem Medications Medication SIG (Take, Route, Frequency, Duration) Notes Start Date End Date Status Ciclopirox Olamine 0.77 % 1 application Externally Twice a day for 30 days Active Fish Oil 1000 MG 1 capsule Orally Onc e a day for 30 day(s) 08/23/2023 Active Tamsulosin HCl 0.4 MG Oral for 90 Days Active Baby Aspirin 08/23/2023 Active Lisinopril 10 MG Oral for 90 Days Active Finasteride 5 MG Oral for 90 Days Active Zetia 10 MG 1 tablet Orally Once a day for 30 day(s) 08/23/2023 Active Social History Tobacco Use: Social History Observation [...] Signs Height 5 ft 11 in in 04/11/2024 Weight 250 lbs 04/11/2024 BMI 34.86 kg/m2 04/11/2024 Blood pressure systolic 120 mm Hg 04/11/20 Blood pressure diastolic 80 mm Hg 024 Encounters Encounter Location Date Provider Diagnosis [facility] [place] [address] [place] [address] 04/11/2024 Laney Barrera Tinea unguium B35.1 ; Tinea pedis of both feet B35.3 ; Pain in right toe(s) M79.674 and Pain in left toe(s) M79.675 Assessments Encounter Date Diagnosis (ICD Code) Assessment Notes Treatment Notes Treatment Clinical Notes Section Notes 04/11/2024 Tinea unguium (ICD-10 - B35.1) 04/11/2024 Tinea pedis of both feet (ICD-10 - B35.3) 04/11/2024 Pain in right toe(s) (ICD-10 - M79.674) 04/11/2024 Pain in left toe(s) (ICD-10 - M79.675) Plan Of Treatment Next Appt Details Follow Up: 2 Months, Reason: Provider Name:Laney martinez, 09/11/2024 10:00:00 AM, [address] [place] [address], [id number], Procedure Notes * Category Sub-Category Detail Notes [...] as necessary. Patient chooses, no pharmaceutical tx (35184) Progress Notes * Jon LEACH MDOB: [birth year] (83 yo M)Acc No.[id number]:04/11/2024 Progress Note Patient:?Jon Leach Provider:?Laney Barrera DPM :1940???Age:83 Y???Sex:Male Erik e:04/11/2024 Address:[address] [place] [address] [place] Pcp:Chad Fnuk MD Subjective: * Chief Complaints: * ???Pcp- 01/10Painful nail(s) aggrevated by shoes causing difficulty standing/walkingSkin Problem * HPI: ???Painful Nails:?Pt States Last PCP Visit:?Date:?12/30/2023 ???Skin problems:?Nature:?scaling , redness.?Location:?B/L .?Course:?improved.?Treatments:?Medication (Ciclopirox Olamine 0.77 Cream).? * ROS:?General/Constitutional:?Nausea?denies, denies.?Vomiting?denies, denies.?Hunger Thirst?denies, denies.?Loss appetite?denies, denies.?Chills?denies, denies.?Fatigue?denies, denies.?Fever?denies, denies.?Night Sweats denies, denies.?Unexplained weight loss?denies, denies.?Unexplained weight gain?denies, denies.?HEENTM:?Dentures?denies, denies.?Dizziness?denies, denies.?Glasses/contacts?admits, admits.?Retinopathy?denies, denies.?Blurred/double vision?denies, denies.?TMJ?denies, denies.?Discharge/drainage?denies, denies.?Implants?denies, denies.?Sore throat?denies, denies.?Dental implants?denies, denies.?Hard of hearing ?denies, denies.?Difficulty chewing/swallowing/speaking?denies, denies.?Nose bleeds?denies, denies.?Sore mouth?denies, denies.?Respiratory:?On Oxygen?denies, denies.?Pneumonia/pleurisy?denies, denies.?Bronchitis?denies, denies.?Emphysema?denies, denies.?Coughing?denies, denies.?Cough blood?denies, denies.?Shortness of breath?denies, denies.?Wheezing?denies, denies.?Cardiovascular:?Pacemaker?denies, denies.?MVP?denies, denies.?WPW?denies, denies.?CHF?denies, denies.?Heart attack?denies, denies.?Septal defect?denies, denies.?Rapid beat?denies, denies.?Chest pain ?denies, denies.?Atrial Fib.?denies, denies.?Murmur/Palpitations?denies, denies.?Gastrointestinal:?Hemorrhoids?denies, denies.?Stomach/Abdominal pain?denies, denies.?Dark blood stool?denies, denies.?Irritable bowel ?denies, denies.?Constipation?denies, denies.?Diarrhea?denies, denies.?Hematology:?Swelling?denies, denies.?Clots?denies, denies.?Varicose Veins?denies, denies.?Bruising?denies, denies.?Bleeding problem?denies, denies.?Genitourinary:?Blood urine?denies, denies.?Frequent/Painfu/urination/bladder control?admits, admits.?Kidney stones?denies, denies.?Infection (UTI)?denies, denies.?Nephropathy?denies, denies.?sex trans dis (STD)?denies, denies.?Prostate?denies, denies.?Musculoskeletal:?Hammertoes?denies, denies.?Bunions?denies, denies.?Back Pain?admits, admits.?Muscle Cramps/ Resting?denies, denies.?Muscle cramps / walking?denies, denies.?Generalized aches and pains?denies, denies.?Weakness?admits, admits.?Integ.:?Kessler?denies, denies.?Scars?denies, denies.?Corns/calluses?denies, denies.?Ingrown nails?denies, denies.?Painful nails?denies, denies.?Open Sores?denies, denies.?Rashes?denies, denies.?Neurologic:?Difficulty sleeping?denies, denies.?Brain disorder?denies, denies.?Numbness?denies, denies.?Balance trouble?admits, admits.?Confusion?denies, denies.?Fainting/blackouts?denies, denies.?Tingling?denies, denies.?Tremors?denies, denies.? * Medical History:? * Surgical History:?appendecto my wisdom teeth extraction tonsillectomy colonoscopy back surgery- under scapula * Hospitalization/Major Diagno stic Procedure:?Denies Past Hospitalization * Family History:?Mother: dece ased, diagnosed with [...] yes, walking. ?Marital status: . 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 * Medications:?TakingZetia 10 MG Tablet 1 tablet Orally Once a dayFinasteride 5 MG Tablet Oral Lisinopril 10 MG Tablet Oral Tamsulosin HCl 0.4 MG Capsule Oral Baby Aspirin Fish Oil 1000 MG Capsule 1 capsule Orally Once a dayCiclopirox Olamine 0.77 % Cream 1 application Externally Twice a dayMedication List reviewed and reconciled with the patientTaking Zetia 10 MG Tablet 1 tablet Orally Once a dayTaking Finasteride 5 MG Tablet Oral Taking Lisinopril 10 MG Tablet Oral Taking Tamsulosin HCl 0.4 MG Capsule Oral Taking Baby Aspirin Taking Fish Oil 1000 MG Capsule 1 capsule Orally Once a dayTaking Ciclopirox Olamine 0.77 % Cream 1 application Externally Twice a dayMedication List reviewed and reconciled with the patient * Allergies:?N.K.D.A.yes[Aller gies Verified] Objective: * Vitals:?Ht: 5 ft 11 in, Wt: 250, BMI: 34.86, Shoe size: 9.5D, BP: 120/80 mm Hg, Ht-cm: 180.34 cm, Wt-k.4 kg. * Examination: ???General Examination: ?GENERAL APPEARANCE:?Reveals [...] tingling, B/L.?DEEP TENDON REFLEXES:?Achilles, 2/4, B/L.?Vascular: ?DP PULSES:?3/4, B/L.?PT PULSES:?3/4, B/L.?CAPILLARY FILL TIME:?immediate, all digits, B/L.?SKIN TEMPERTURE GRADIENT OF THE LOWER EXTERMITIES:?warm to cool, proximal to distal, B/L.?HAIR GROWTH/TEXTURE/ELASTICITY/TURGOR:?normal, B/L.?PIGMENTATION:?normal, B/L.?EDEMA:?absent, B/L.?Dermatologic: ?SKIN FINDINGS:?Skin shows approximately _85__% LESS sign(s) of, erythema, scaling, in a moccasin fashion, no fissure(s) present, B/L.?Orthopedic: ?MUSCLE STRENGTH:?5/5 all groups in a symmetrical fashion , B/L.?Nails: ?NAILS are:?Elongated, overgrown, dystrophic, lytic, greater than 3mm thick, discolored and friable with crumbly malodorous subungual debris, with pain on palpation 1-5 B/L.? Assessment: * Assessment: 1.?Tinea unguium - B35.1?2.? Pain in right toe(s) - M79.674?3.?Tinea pedis of both feet - B35.3 (Primary), Acute problem, Uncomplicated (3),Rx drug management (4)?4.?Pain in left toe(s) - M79.675? Plan: * [...] as necessary. Patient chooses, no pharmaceutical tx (63497).? * Procedure Codes:?18481 DEBRI DE NAIL, 6 OR MORE, Modifiers: XS * Preventive Medicine:? ??Counseling:?Discussion:?-12: Office or other outpatient visit for the evaluation and management of an established patient, which required a medically appropriate history and/or examination and STRAIGHTFORWARD level of MEDICAL DECISION MAKING, 1 SELF-LIMITED OR MINOR PROBLEM, MINIMAL- NO AMOUNT/COMPLEXITY OF DATA TO BE REVIEWED/ANALYZED, AND MINIMAL RISK OF COMPLICATION/MORBIDITY. The visit on the day of the encounter encompassed interpreting the data and educating the patient as to the nature of their condition, treatment options available according to their individual PMH, meds, allergies, and overall health/living conditions, as well as any potential risks or complications that may occur from a failure to adhere to, and participate in, the recommended course of therapy. The discussion included a complete verbal, and/or written explanation of the examination results, any x-rays taken, the proposed diagnosis, and outline of the treatment plan. A schedule for future care needs was also explained. The patient verbalized an understanding of the instructions at this time and agreed to be an active participant in their treatment. If the patient should think of any questions or concerns after the visit, I have encouraged the patient to call the office.?Tinea Pedis:?Given recent successful results to treatment, The patient is to cont the rx cream as directed.? * Follow Up:?2 Months * Images: * Sign off status: Completed true * Provider:?Laney Barrera DPM Date:? Generated for Haris barton/Benjamin/Misbah on:?08/29/2024 02:13 [...] Dermatologic SKIN FINDINGS: Skin shows appro ximately _85__% LESS sign(s) of, erythema, scaling, in a [...]
--- OUTSIDE RECORDS SUMMARY | 2024-08-29 14:14 | XMS_ITS | Patient Health Record ---
Author Organization [facility] Address [address] [facility] [place] [address] Care Team Providers Care Clothes Drier Repairer Name Role Phone Chad Funk MD Primary Care Provider Yumi Laney De Leon Unavailable [phone] Allergies No Known Allergies Reason For Referral No Information Medications Medication SIG (Take, Route, Frequency, Duration) Notes Start Date End Date Status Zetia 10 MG 1 tablet Orally Once a day for 30 day(s) 08/23/2023 Active Finasteride 5 MG Oral for 90 Days Active Tamsulosin HCl 0.4 MG Oral for 90 Days Active Lisinopril 10 MG Oral for 90 Days Active Fish Oil 1000 MG 1 capsule Orally Onc e a day for 30 day(s) 08/23/2023 Active Baby Aspirin 08/23/2023 Active Ciclopirox Olamine 0.77 % 1 application Externally Twice a day for 30 days Not-Taki ng Social History Tobacco Use: Social History Observation [...] an other tobacco user? No Vital Signs Blood pressure diastolic 90 mm Hg 07/06/2024 Height 5 ft 11 in in 07/06/2024 Blood pressure systolic 116 mm Hg 07/06/2024 Weight 230 lbs 07/06/2024 BMI 32.07 kg/m2 07/06/2024 Encounters Encounter Location Date Provider Diagnosis [address] [address] 11/22/2023 Laney Perica Tinea unguium B35.1 ; Tinea pedis of both feet B35.3 ; Pain in right toe(s) M79.674 and Pain in left toe(s) M79.[address] [address] 02/01/2024 Laney Perica Tinea unguium B35.1 ; Tinea pedis of both feet B35.3 ; Pain in right toe(s) M79.674 and Pain in left toe(s) M79.[address] [address] 04/11/2024 Laney Perica Tinea unguium B35.1 ; Tinea pedis of both feet B35.3 ; Pain in right toe(s) M79.674 and Pain in left toe(s) M79.[address] [address] 07/06/2024 Laney Perica Tinea unguium B35.1 ; Tinea pedis of both feet B35.3 ; Pain in right toe(s) M79.674 and Pain in left toe(s) M79.675 Assessments Encounter Date Diagnosis (ICD Code) Assessment Notes Treatment Notes Treatment Clinical Notes Section Notes 11/22/2023 Tinea unguium (ICD-10 - B35.1) 11/22/2023 Tinea pedis of both feet (ICD-10 - B35.3) 02/01/2024 Tinea unguium (ICD-10 - B35.1) 04/11/2024 Tinea unguium (ICD-10 - B35.1) 07/06/2024 Tinea unguium (ICD-10 - B35.1) 07/06/2024 Tinea pedis of both feet (ICD-10 - B35.3) 11/22/2023 Pain in right toe(s) (ICD-10 - M79.674) 07/06/2024 Pain in right toe(s) (ICD-10 - M79.674) 04/11/2024 Pain in right toe(s) (ICD-10 - M79.674) 04/11/2024 Tinea pedis of both feet (ICD-10 - B35.3) 02/01/2024 Pain in right toe(s) (ICD-10 - M79.674) 02/01/2024 Tinea pedis of both feet (ICD-10 - B35.3) 04/11/2024 Pain in left toe(s) (ICD-10 - M79.675) 02/01/2024 Pain in left toe(s) (ICD-10 - M79.675) 11/22/2023 Pain in left toe(s) (ICD-10 - M79.675) 07/06/2024 Pain in left toe(s) (ICD-10 - M79.675) Plan Of Treatment Next Appt Details Provider Name:Laney martinez, 09/11/2024 10:00:00 AM, [address] [place] [address], [place], [address], Insurance Providers Payer Name Payer Address Payer Phone Subscriber Number Group Number Insured Name Patient Relationship to Insured Coverage Start Date Coverage End Date [employer] Medicare [id number] [address] [address] [place] [address] [id number] Jon Bedoya Self - patient is the insured Medical (General) History Medical History History ICD Code Back,Hip,and Knee pain CAD (Cholesterol) Cataracts High blood pressure Osteoporosis Sciatica Measles Mumps Chicken pox Arthritis Surgical History Surgery Date(Month/Year) appendectomy wisdom teeth extraction tonsillectomy colonoscopy back surgery- under scapula Hospitalization History Reason Date(Month/Year) 3 days at [facility] and 2 weeks i n rehab 04/2024
== END 2024-08-27 10:24 | disposition home or self-care (01) ==
PROVIDERS: PCP Internal Medicine; Visit Provider Internal Medicine Cardiovascular Disease
DX: I48.0 Paroxysmal atrial fibrillation (principal); I10 Essential (primary) hypertension; I44.0 Atrioventricular block, first degree; I49.3 Ventricular premature depolarization; I49.1 Atrial premature depolarization
CPT/HCPCS: 93010; 99214; G2211

== ENCOUNTER → 2024-08-27 09:49 | Outpatient (BNVA) | payer MEDICARE, SELFPAY | PROVIDERS: PCP Internal Medicine; Visit Provider Internal Medicine Cardiovascular Disease | DX: I44.0 Atrioventricular block, first degree (principal); I49.3 Ventricular premature depolarization; I45.10 Unspecified right bundle-branch block; I10 Essential (primary) hypertension; I48.0 Paroxysmal atrial fibrillation; Z79.01 Long term (current) use of anticoagulants | CPT/HCPCS: 93005; 99212 ==

== ENCOUNTER → 2024-09-13 09:43 | Outpatient (REF) | payer MEDICARE, SELFPAY ==
--- NOTE | 2024-09-13 09:46 | CA_ITS ---
Transthoracic Echocardiogram Patient (Last, First, Middle): Jon Bedoya M Gender: Male Date of : 1940 Age: 83 Procedure Date: 09/13/2024 Procedure Type: Transthoracic Echocardiogram Location: OP Height: 182.88 cm Weight: 105.69 kg BSA: 2.27 m2 Heart Rate: bpm BP: 138 / 72 mmHg Panel Machine Tender: TO Referring MD: Yobani Goss MD Television Schedule Coordinator: Yobani Goss MD Symptoms: I48.0 - Paroxysmal atrial fibrillation Study Quality: Technically Difficult/Contrast ECG Rhythm: Sinus Conclusions: - 1. Technically limited study 2. Normal LV ejection fraction of 60 65% with grade 1 diastolic dysfunction 3. Cardiac valvular Dopplers within normal limits 4. 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 Left Ventricle Normal left ventricular size, thickness, and systolic function. The visually estimated ejection fraction is between 60-65%. Spectral Doppler is indicative of an impaired relaxation filling pattern. E/E prime ratio is <8, consistent with normal filling pressures. Right Ventricle The right ventricle was not well visualized. Atria The left atrium is normal in size. Interatrial shunt cannot be excluded. The right atrium was not well visualized. Aortic Valve The aortic valve was not well visualized. There is no aortic valve stenosis. There is no aortic valve regurgitation. Mitral Valve The mitral valve was not well visualized. There is trace mitral valve regurgitation. There is no mitral valve stenosis. Pulmonic Valve The pulmonic valve was not well visualized. Tricuspid Valve The tricuspid valve was not well visualized. Tricuspid regurgitation envelope is inadequate for calculation of right ventricular systolic pressure. Great Vessels The aorta was not well visualized. The pulmonary artery was not well visualized. There is mild dilatation of the ascending aorta measuring 3.80 cm. Venous The inferior vena cava was not well visualized. Pericardium/Pleural The pericardium was not well visualized. Prior Study Comparison Changes noted compared to prior study dated: 09/29/2022. Ascending aorta is mildly enlarged at 3.8 cm Measurements 2D Linear Measurements IVSd: 1.07 0.6-0.9/0.6-1.0 cm LVIDd: 4.79 3.9-5.3/4.2-5.9 cm LVIDd Index: 2.11 2.4-3.2/2.2-3.1 cm/m2 LVIDs: 3.09 2.0-3.6 cm LVPWd: 0.87 0.7-1.1 cm LA Diam: 2.80 2.7-3.8/3.0-4.0 cm LAIDs Index: 1.23 1.5-2.3 cm/m2 LV Mass: 202.86 67-162/88-224 g LV Mass Index: 89.36 43-95/49-115 g/m2 LVOT Diam: 2.40 3.0+(-)1.3 cm 2D Systolic Function EF 4C: 60.70 >55% Mitral Valve MV Pk E: 0.48 MV PK A: 0.59 MV Decel Time: 158.00 E/A: 0.80 E'Lateral: 8.16 E'Medial: 5.00 E/E' Med: 9.70 E/E' Lat: 5.90 PHT: 46.00 MVA PHT: 4.78 Decel Hopkins: 3.06 Aortic Valve AoV Pk Kayden: 1.58 AoV Mn Kayden: 1.01 AoV VTI: 0.27 AoV Pk Grad: 10.00 Aov Mn Grad: 4.00 NADYA Cont.VTI: 2.63 LVOT LVOT Pk Kayden: 0.82 LVOT Mn Kayden: 0.49 LVOT VTI: 0.16 LVOT Pk Grad: 3.00 LVOT Mn Grad: 1.00 LVOT Diam: 2.40 LVOT Area: 4.52 Diastolic Function MV Pk E: 0.48 MV Pk A: 0.59 E/A: 0.80 E'Medial: 5.00 E/E' Med: 9.70 E' Laterial: 8.16 E/E' Lat: 5.90 Right Ventricle TAPSE (mm): 22.10 TVS' Kayden: 13.40 Tricuspid Valve RA Press: 3.00 Great Vessels Aorta Sinus of Valsalva: 3.88 2.0-3.[address] Ridge: 2.75 1.7-3.4 cm Ao Asc: 3.80 2.1-3.4 cm Updated in Other Vendor System with Status of Final Yobani Goss MD electronically signed on 09/13/2024 4:45:28 PM with status of Final
--- OUTSIDE RECORDS SUMMARY | 2024-09-13 09:46 | XMS_ITS ---
[facility] julieta Elkins Address [address] [facility] [place] [address] Care Team Providers Care Seismograph Operator Helper Name Role Phone Chad Funk MD Primary Care Provider Laney Mirza Unavailable [phone] Allergies No Known Allergies REASON FOR VISIT [...] 024 Encounters Encounter Location Date Provider Diagnosis [facility] [address] [place] [address] 07/06/2024 Laney Barrera Tinea unguium B35.1 ; [...] Up: 2 Months, Reason: Provider Name:Laney martinez, 11/21/2024 02:30:00 PM, [address] [place] [address], [id number], Procedure Notes * Category Sub-Category Detail Notes [...] as necessary. Patient chooses, no pharmaceutical tx (74287) Progress Notes * Jon LEACH MDOB: [birth year] (83 yo M)Acc No.[id number]:07/06/2024 Progress Note Patient:?Jon Leach Provider:?Laney Barrera DPM :1940???Age:83 Y???Sex:Male Erik e:07/06/2024 Address:[address] [place] [address] [place] Pcp:Chad Funk MD Subjective: * Chief Complaints: [...] * Hospitalization/Major Diagno stic Procedure:?3 days at [facility] and 2 weeks in rehab 04/2024 [...] yes, walking. ?Marital status: . 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 * Medications:?TakingZetia 10 MG Tablet [...] as necessary. Patient chooses, no pharmaceutical tx (66872).? * Procedure Codes:?39412 DEBRI DE NAIL, 6 OR MORE, Modifiers: XS * Follow Up:?2 Months * Images: * Sign off status: Completed true * Provider:?Laney Barrera, BERTA Date:? Generated for Haris barton/Benjamin/Misbah on:?09/13/2024 09:45 AM EST History and Physical Notes * HPI [...] person, place, and t francy Vascular DP PULSES (B): 3/4, B/L PT PULSES (B): 3/4, B/L CAPILLARY FILL TIME: immediate, all digi ts, B/L TEMPERTURE GRADIENT (C): warm to cool, p roximal to distal, B/L TROPHIC CONDITION-TEXTURE/ELASTICITY/TURGOR/HAIR GROWTH (B): normal, B/L EDEMA (C): absent, B/L PIGMENTATION: normal, B/L Nails NAILS are: Elongated, overg rown, dystrophic, lytic, greater than 3mm thick, discolored and friable with crumbly malodorous subungual debris, with pain on palpation 1-5 B/L
--- OUTSIDE RECORDS SUMMARY | 2024-09-13 09:46 | XMS_ITS ---
Author Organization [facility] julieta Prosper Address [address] [facility] [place] [address] Care Team Providers Care Java Web Application Developer Name Role Phone Chad Fukn MD Primary Care Provider Laney Mirza Unavailable [phone] Allergies No Known Allergies REASON FOR VISIT At Risk Footcare, Painful Nail(s) aggravated by shoes and causing difficulty standing/walking. Medications Medication SIG (Take, Route, Frequency, Duration) Notes Start Date End Date Status Zetia 10 MG 1 tablet Orally Once a day for 30 day(s) 08/23/2023 Active Baby Aspirin 08/23/2023 Not-Ta dora Tamsulosin HCl 0.4 MG Oral for 90 Days Active Lisinopril 10 MG Oral for 90 Days Active Finasteride 5 MG Oral for 90 Days Active Eliquis Active Ciclopirox Olamine 0.77 % 1 application Externally Twice a day for 30 days Not-Takalonso barton Fish Oil 1000 MG 1 capsule Orally [...] Are you an other tobacco user? No Problems Problem Type SNOMED Code ICD Code Onset Dates Problem Status W/U Status Risk Notes Problem Atherosclerosis of resighini artery of both lower extremities, with unspecified presence of clinical manifestation (I70.203) Active confirmed Q7(A), Q8(2B), Q9(1B,2C) Vital Signs Height 5 ft 11 in in 09/11/2024 Weight 230 lbs 09/11/2024 BMI 32.07 kg/m2 09/11/2024 Blood pressure systolic 118 mm Hg 09/11/20 Blood pressure diastolic 70 mm Hg 024 Encounters Encounter Location Date Provider Diagnosis [facility] [place] [address] [place] [address] 09/11/2024 Laney Sauravjuan Atherosclerosis of resighini artery of both lower extremities, with unspecified presence of clinical manifestation I70.203 ; Tinea unguium B35.1 ; Pain in right toe(s) M79.674 and Pain in left toe(s) M79.675 Assessments Encounter Date Diagnosis (ICD Code) Assessment Notes Treatment Notes Treatment Clinical Notes Section Notes 09/11/2024 Atherosclerosis of resighini artery of both lower extremities, with unspecified presence of clinical manifestation (ICD-10 - I70.203) Q7(A), Q8(2B), Q9(1B,2C) 09/11/2024 Tinea unguium (ICD-10 - B35.1) 09/11/2024 Pain in right toe(s) (ICD-10 - M79.674) 09/11/2024 Pain in left toe(s) (ICD-10 - M79.675) Plan Of Treatment Next Appt Details Follow Up: 2 Months, Reason: Provider Name:Laney martinez, 11/21/2024 02:30:00 PM, [address] [place], [address], Procedure Notes * Category Sub-Category Detail Notes Debride Nail 6-10 Nail debridement Due to the cl inical pathology outlined in the exam findings, performance of this nail treatment is medically necessary as its management by an unskilled/untrained nonprofessional would put this patients foot and overall health at risk. Therefore, debridement to affected nail(s), as described in exam ( TA, T1, T2, T3, T4, T5, T6, T7, T8, T9, ), was performed exclusively by the physician of record to reduce/remove overall nail length, girth, thickness, subungual debris, and necrotic tissue, by manual and/or electrical means through the use of a nail nipper and/or dremel-type terrazzo grinder, to a more viable healthy nail plate or bed tissue 6-10 nails in total. Silver nitrate was used for any petechial bleeding as necessary. Definitive antifungal treatment options, both pharmaceutical and surgical, have been reviewed and discussed with the patient. The patient solely prefers the use of intermittent/as needed professional debridement services for their nail condition and understands the need for additional periodic treatments to maintain effectiveness in symptomatic relief - 08342 Keratoma Treatment Parring or Cutting o f Benign Hyperkeratotic Lesion(s) (-56) 2-4 Lesions - Due to the at risk nature of the patients medical condition as documented in the exam findings, performance of this keratoderma treatment is medically necessary as its management by an unskilled/untrained nonprofessional would put this patients foot and overall health at risk. Therefore, the benign hyperkeratotic lesions, ( 4) in total, locations as stated and described in the exam ( Medial plantar, TA, T5, T9, T4), were pared, and/or cut utilizing a sterile 15 blade, tissue nippers, and/or power dremel instrumentation by the physician of record - 12169, Q8 Progress Notes * Jon LEACH MDOB: [birth year] (83 yo M)Acc No.[id number]:09/11/2024 Progress Note Patient:?Jon LEACH Provider:?Laney Barrera DPM :1940???Age:83 Y???Sex:Male Erik e:09/11/2024 Address:[address] [place] [address] [place], [place] Pcp:Chad Funk MD Subjective: * Chief Complaints: * ???At Risk FootcarePainful N ail(s) aggravated by shoes and causing difficulty standing/walking. * HPI: ???At Risk footcare:?Pt States Last PCP Visit:?Date?08/29/2024 * ROS:?General/Constitutional:?Nausea?denies.?Vomiting?denies.?Hunger Thirst?denies.?Loss appetite?denies.?Chills?denies.?Fatigue?denies.?Fever?denies.?Night Sweats?denies.?Unexplained weight loss?denies.?Unexplained [...] * Hospitalization/Major Diagno stic Procedure:?3 days at [facility] and 2 weeks in rehab 04/2024 [...] ?Interpretation?Positive ???Miscellaneous:?Caffeine: yes, 1 cups per day. ?Children: no. ?Exercise: yes, walking. ?Marital status: . 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 * Medications:?TakingEliquis Z etia 10 MG Tablet 1 tablet Orally Once a day Finasteride 5 MG Tablet Oral Lisinopril 10 MG Tablet Oral Tamsulosin HCl 0.4 MG Capsule Oral Fish Oil 1000 MG Capsule 1 capsule Orally Once a day Taking Eliquis Taking Zetia 10 MG Tablet 1 tablet Orally Once a day Taking Finasteride 5 MG Tablet Oral Taking Lisinopril 10 MG Tablet Oral Taking Tamsulosin HCl 0.4 MG Capsule Oral Taking Fish Oil 1000 MG Capsule 1 capsule Orally Once a day Not-Taking/PRNBaby Aspirin Ciclopirox Olamine 0.77 % Cream 1 application Externally Twice a day Medication List reviewed and reconciled with the patientNot-Taking/PRN Baby Aspirin Not-Taking/PRN Ciclopirox Olamine 0.77 % Cream 1 application Externally Twice a day Medication List reviewed and reconciled with the patient * Allergies:?N.K.D.A.yes[Aller gies Verified] Objective: * Vitals:?Ht: 5 ft 11 in, Wt: 230, BMI: 32.07, Shoe size: 9.5, BP: 118/70 mm Hg, Ht-cm: 180.34 cm, Wt-k.33 kg. * Examination: ???Vascular: ?DP PULSES (B):? 0/4, B/L.?PT PULSES (B):? 0/4, B/L.?CAPILLARY FILL TIME:? delayed, all digits, B/L.?TROPHIC CONDITION-TEXTURE/ELASTICITY/TURGOR/HAIR GROWTH (B):? decreased, fragile, thin, shiny skin, with sparse to absent hair growth, B/L.?TEMPERTURE GRADIENT (C):? decreased, cool to cool, proximal to distal, B/L.?EDEMA (C):?1/4, B/L.?CLAUDICATION (C):?denies, B/L.?REST PAIN:?denies, B/L.?PARESTHESIA (C):?absent, B/L.?BURNING (C):?absent, B/L.?Nails: ?NAILS are:? Elongated, overgrown, dystrophic, lytic, greater than 3mm thick, discolored and friable with crumbly malodorous subungual debris, with pain on palpation,TA, T1, T2, T3, T4, T5, T6, T7, T8, T9.?Dermatologic: ?SKIN FINDINGS:?Skin exam reveals Keratotic lesion(s) located at , Medial plantar, TA, T5, T9, T4.?Orthopedic: ?MUSCLE STRENGTH:?5/5 all groups in a symmetrical fashion, B/L.?Neurological: ?SENSORY:?Neurological exam reveals intact sensorium, pain sensation normal, vibration sensation intact, pinprick sensation is normal in the lower extremities, Pt denies, anesthesia, burning, paresthesia, tingling, B/L.?General Examination: ?GENERAL APPEARANCE:?Reveals a pleasant, alert, well nourished, well- developed, well hydrated individual, who demonstrates proper attention to hygiene/body habitus, and is in no acute distress, Pt serves as own historian for office visit today.?ORIENTED:?person, place, and time.? Assessment: * Assessment: 1.?Tinea unguium - B35.1???2 .?Atherosclerosis of resighini artery of both lower extremities, with unspecified presence of clinical manifestation - I70.203 (Primary)???Notes :Q7(A), Q8(2B), Q9(1B,2C)???3.?Pain in right toe(s) - M79.674???4.?Pain in left toe(s) - M79.675??? Plan: * Treatment: * Procedures:?Debride Nail 6-10:?Nail debridement?Due to the clinical pathology outlined in the exam findings, performance of this nail treatment is medically necessary as its management by an unskilled/untrained nonprofessional would put this patients foot and overall health at risk. Therefore, debridement to affected nail(s), as described in exam ( TA, T1, T2, T3, T4, T5, T6, T7, T8, T9, ), was performed exclusively by the physician of record to reduce/remove overall nail length, girth, thickness, subungual debris, and necrotic tissue, by manual and/or electrical means through the use of a nail nipper and/or dremel-type terrazzo grinder, to a more viable healthy nail plate or bed tissue 6- 10 nails in total. Silver nitrate was used for any petechial bleeding as necessary. Definitive antifungal treatment options, both pharmaceutical and surgical, have been reviewed and discussed with the patient. The patient solely prefers the use of intermittent/as needed professional debridement services for their nail condition and understands the need for additional periodic treatments to maintain effectiveness in symptomatic relief - 44161.?Keratoma Treatment:?Parring or Cutting of Benign Hyperkeratotic Lesion(s)?(-56) 2-4 Lesions - Due to the at risk nature of the patients medical condition as documented in the exam findings, performance of this keratoderma treatment is medically necessary as its management by an unskilled/untrained nonprofessional would put this patients foot and overall health at risk. Therefore, the benign hyperkeratotic lesions, ( 4) in total, locations as stated and described in the exam ( Medial plantar,TA,T5,T9,T4), were pared, and/or cut utilizing a sterile 15 blade, tissue nippers, and/or power dremel instrumentation by the physician of record - 14218, Q8.? * Procedure Codes:?79895 DEBRI DE NAIL, 6 OR MORE, Modifiers: XS 54281 TRIM SKIN LESIONS, 2 TO 4, Modifiers: XS , Q8 * Follow Up:?2 Months * Images: * Sign off status: Completed true * Provider:?Laney Barrera, DPM Date:? Generated for Haris barton/Benjamin/eTransmitting on:?09/13/2024 09:45 AM EST History and Physical Notes * HPI (History of Present Illness) Category Sub-Category Detail Notes Category Not es At Risk footcare Pt States Last PCP Visit: Date: Examination Category Sub-Category Detail Notes Category Not es Neurological SENSORY: Neurological exa m reveals intact sensorium, pain sensation normal, vibration sensation intact, pinprick sensation is normal in the lower extremities, Pt denies, anesthesia, burning, paresthesia, tingling, B/L Dermatologic SKIN FINDINGS: Skin exam reveal s Keratotic lesion(s) located at , Medial plantar, TA, T5, T9, T4 Orthopedic MUSCLE STRENGTH: 5/5 all groups in a symmetrical fashion, B/L General Examination GENERAL APPEARANCE: Reveals a pleasant, alert, well nourished, well-developed, well hydrated individual, who demonstrates proper attention to hygiene/body habitus, and is in no acute distress, Pt serves as own historian for office visit today ORIENTED: person, place, and t francy Vascular DP PULSES (B): 0/4, B/L PT PULSES (B): 0/4, B/L CAPILLARY FILL TIME: delayed, all digits , B/L TEMPERTURE GRADIENT (C): decreased, cool to cool, proximal to distal, B/L TROPHIC CONDITION-TEXTURE/ELASTICITY/TURGOR/HAIR GROWTH (B): decreased, fragile, thin, shiny skin, wi th sparse to absent hair growth, B/L EDEMA (C): 1/4, B/L CLAUDICATION (C): denies, B/L REST PAIN: denies, B/L PARESTHESIA (C): absent, B/L BURNING (C): absent, B/L Nails NAILS are: Elongated, overg rown, dystrophic, lytic, greater than 3mm thick, discolored and friable with crumbly malodorous subungual debris, with pain on palpation,TA, T1, T2, T3, T4, T5, T6, T7, T8, T9
--- OUTSIDE RECORDS SUMMARY | 2024-09-13 09:46 | XMS_ITS | Patient Health Record ---
Author Organization [facility] julieta [place] Address [address] [place] [address] Care Team Providers Care Washing Machine Loader And Puller Name Role Phone Chad Funk MD Primary Care Provider Yumi MgJasson martinezen Unavailable [phone] Allergies No Known Allergies Reason For Referral No Information Medications Medication SIG (Take, Route, Frequency, Duration) Notes Start Date End Date Status Zetia 10 MG 1 tablet Orally Once a day for 30 day(s) 08/23/2023 Active Eliquis Active Ciclopirox Olamine 0.77 % 1 application Externally Twice a day for 30 days Not-Taki ng Fish Oil 1000 MG 1 capsule Orally Onc e a day for 30 day(s) 08/23/2023 Active Baby Aspirin 08/23/2023 Not-Jalen john Tamsulosin HCl 0.4 MG Oral for 90 Days Active Lisinopril 10 MG Oral for 90 Days Active Finasteride 5 MG Oral for 90 Days Active Social History Tobacco Use: Social History [...] W/U Status Risk Notes Problem Atherosclerosis of [place] artery of both lower extremities, with unspecified presence of clinical manifestation (I70.203) Active confirmed Q7(A), Q8(2B), Q9(1B,2C) Vital Signs Blood pressure diastolic 70 mm Hg 09/11/2024 Height 5 ft 11 in in 09/11/2024 Blood pressure systolic 118 mm Hg 09/11/2024 Weight 230 lbs 09/11/2024 BMI 32.07 kg/m2 09/11/2024 Encounters Encounter Location Date Provider Diagnosis [address] [address] 11/22/2023 Laney Perica Tinea unguium B35.1 ; Tinea pedis of both feet B35.3 ; Pain in right toe(s) M79.674 and Pain in left toe(s) M79.[address] [address] 02/01/2024 Laney Perica Tinea unguium B35.1 ; Tinea pedis of both feet B35.3 ; Pain in right toe(s) M79.674 and Pain in left toe(s) M79.[address] [address] 04/11/2024 Laney Perica Tinea unguium B35.1 ; Tinea pedis of both feet B35.3 ; Pain in right toe(s) M79.674 and Pain in left toe(s) M79.[address] [address] 07/06/2024 Laney Perica Tinea unguium B35.1 ; Tinea pedis of both feet B35.3 ; Pain in right toe(s) M79.674 and Pain in left toe(s) M79.[address] [address] 09/11/2024 Laney Perica Atherosclerosis of [place] artery of both lower extremities, with unspecified [...] pedis of both feet (ICD-10 - B35.3) 09/11/2024 Tinea unguium (ICD-10 - B35.1) 09/11/2024 Atherosclerosis of [place] artery of both lower extremities, with unspecified presence of clinical manifestation (ICD-10 - I70.203) Q7(A), Q8(2B), Q9(1B,2C) 09/11/2024 Pain in right toe(s) (ICD-10 - M79.674) 11/22/2023 Pain in right toe(s) (ICD-10 - [...] Pain in left toe(s) (ICD-10 - M79.675) 09/11/2024 Pain in left toe(s) (ICD-10 - M79.675) Plan Of Treatment Next Appt Details Provider Name:Laney Dalila martinez, 11/21/2024 02:30:00 PM, [address] [place], [address], Insurance Providers Payer Name Payer Address Payer Phone Subscriber Number Group Number Insured Name Patient Relationship to Insured Coverage Start Date Coverage End Date [employer] Medicare Adv-[id number] [address] [address] [place] [address] [id number] Jon Bedoya Self - patient is the insured Medical (General) History Medical History History ICD Code Back,Hip,and Knee pain CAD (Cholesterol) Cataracts High blood pressure Osteoporosis Sciatica Measles Mumps Chicken pox Arthritis Surgical History Surgery Date(Month/Year) appendectomy wisdom teeth extraction tonsillectomy colonoscopy back surgery- under scapula Hospitalization History Reason Date(Month/Year) [address] [facility] and 2 weeks i n rehab 04/2024
--- OUTSIDE RECORDS SUMMARY | 2024-09-13 09:46 | XMS_ITS ---
Author Organization [facility] Address [address] [place] [address] Care Team Providers Care Bottom Bleacher Name Role Phone Blessing OSPINA, Chad Primary Care Provider Laney Mirza [phone] Hernandez Encounters Encounter Location Date Provider Diagnosis [address] [address] 06/29/2024 Laney Barrera Plan Of Treatment Next Appt Details Provider Name:Laney martinez, 11/21/2024 02:30:00 PM, [address] [place] [address], [address], Progress Notes * Jon LEACH MDOB: [birth year] (83 yo M)Acc No.[id number]:06/29/2024 Progress Note Patient:?Jon LEACH Provider:?Laney Barrera DPM :1940???Age:83 Y???Sex:Male Erik e:06/29/2024 Address:[address] [place] [address] [facility] [place] [id number] Pcp:Chad Funk MD Subjective: * Chief Complaints: [...] Barrera DPM Date:?07/2024 Generated for Haris barton/Benjamin/Misbah on:?09/13/2024 09:46 AM EST
== END ==
LOC: HO.CARD 09:43
PROVIDERS: PCP Internal Medicine; Visit Provider Internal Medicine Cardiovascular Disease
DX: I48.0 Paroxysmal atrial fibrillation (principal)
CPT/HCPCS: 93270; 93306; Q9957

== ENCOUNTER → 2024-09-13 09:46 | Outpatient (BNV) | payer MEDICARE, SELFPAY | PROVIDERS: PCP Internal Medicine; Visit Provider Internal Medicine Cardiovascular Disease | DX: I48.0 Paroxysmal atrial fibrillation (principal); R93.1 Abnormal findings on diagnostic imaging of heart and coronary circulation | CPT/HCPCS: 93306 ==

== ENCOUNTER 2024-09-27 10:44 | Outpatient (AMB) | payer MEDICARE, SELFPAY ==
[2024-09-27 11:08] VITALS: BP 110/70; PULSE 89; O2SAT 98; BMI 31.4
--- NOTE | 2024-09-27 11:08 | MHC.OFFVIS ---
Vital Signs 09/27/24 11:08 Height 6 ft 1 in Weight 238 lb 1.588 oz BMI 31.4 BP 110/70 Blood Pressure Location Lt brachial Position Sitting Pulse 89 Pulse Source Pulse Oximeter Pulse Oximetry (%) 98 Oxygen Delivery Method Room Air Intake Visit Reasons: roxy Intake Note: pt is here for follow up and states he is feeling well with cpap, (J&L). Deicer Repairer Electric Required: No Allergies No Known Allergies Allergy (Verified 09/27/24 11:17) Medication List - Last Reconciled 09/27/24 by Alexandr Kingsley MD apixaban (Eliquis) 5 mg PO BID ezetimibe 10 mg PO DAILY finasteride 5 mg PO DAILY lisinopril 10 mg PO DAILY omega-3 fatty acids (Fish Oil Concentrate) 1,000 mg PO DAILY tamsulosin 0.4 mg PO DAILY Do you need a note to return to daycare/school/sports/work: No HPI HPI roxy: Details: MELANI IS 83 YEARS OLD GENTLEMAN MODERATELY OBESE WITH HISTORY OF OBSTRUCTIVE SLEEP APNEA. HE COMES ONLY ONCE A YEAR FOR FOLLOW-UP. DURING THE PAST YEAR HE HAS BEEN USING HIS CPAP REGULARLY EVERY NIGHT AND SLEEPING WELL. A FEW MONTHS AGO HE HAD FALLEN AT HOME AND NOT ABLE TO STAND AND WALK SO HE WAS TAKEN TO THE EMERGENCY ROOM, NO FRACTURES, BUT HE NEEDED TO SPEND A FEW WEEKS IN THE REHAB FACILITY TO OVERCOME BACK STRAIN. NOW HE HAS TO USE WALKER WHEN HE GOES OUTDOORS. HE USES CPAP VERY REGULARLY AND THERE ARE NO ISSUE . OR COMPLAINTS [facility] Medical History HTN (hypertension) ROXY on CPAP Obesity Family History Father Heart attack Mother Heart attack Social History Alcohol intake: current Alcohol intake frequency: 0-2 drinks per day Alcohol type: wine Patient Tobacco Use Status: Former Tobacco user Advance Directives Date on File: 02/01/22 Review of Systems Const All systems reviewed & are unremarkable except as noted in HPI and below Eyes Reports no additional complaints ENT Reports no additional complaints and Reports dizziness (occasional .) Card Denies chest pain, Denies irregular heart rhythm and Denies leg edema Resp Reports no additional complaints GI Reports no additional complaints Reports other (nocturia 1-2 per night ) Musc Reports abnormal gait (SLIGHTLY IMPAIRED AND HE HAS TO USE A CANE) and Reports back pain (mild ) Skin/Breast Reports system reviewed and no additional complaints, except as documented Neuro Reports abnormal gait (SLIGHTLY IMPAIRED AND HE HAS TO USE A CANE) and Reports dizziness (occasional .) Psych Reports no additional complaints Endo Reports no additional complaints Physical Exam Vital Signs: Last Vital Signs Pulse 89 09/27/24 11:08 BP 110/70 09/27/24 11:08 Pulse Ox 98 09/27/24 11:08 Oxygen Delivery Method Room Air 09/27/24 11:08 BMI result Body Mass Index 31.4 Const General: healthy appearing (Except for being overweight), comfortable, no acute distress, alert and awake Orientation/consciousness: patient oriented x3 HEENT Head: Yes normal to inspection General nose exam: No nasal polyps present and No nasal discharge present Face and sinus: Yes sinuses nontender Mouth: oropharynx normal Throat: Yes posterior oropharynx normal Eyes General: appearance normal, both eyes and all related structures Neck Neck: Yes normal visual inspection, Yes no lymphadenopathy, Yes trachea midline and Yes no JVD Thyroid: Thyroid normal Chest Chest palpation & inspection: normal inspection of the chest, normal palpation of entire chest wall and no tenderness Resp Other: Percussion note resonant, breath sounds are equal and vesicular on both sides. No wheezes rhonchi or Creps are heard. Cardio Palpation: normal PMI Rate: regular rate Rhythm: regular rhythm Heart sounds: no gallops and no murmurs Peripheral pulses: Peripheral pulses 2+ throughout GI Palpation (GI): Soft to palpation, nontender, No hepatosplenomegaly present, no masses and Other GI palpation findings present (Abdomen slightly obese and protuberant) Auscultation: normal bowel sounds Back/Spine/Pelvis Thoracic/Lumbar Spine: thoracic and lumbar spine normal to inspection Skin General skin exam: no rashes or lesions noted Neuro General: patient oriented x3 and no focal motor deficits Cranial nerves: Yes CN's II-XII intact bilaterally Extrem General: Yes normal to inspection, Yes no clubbing, cyanosis or edema and Yes no calf tenderness Psych Appearance: grossly normal and well kempt Speech and movement: Normal speech and movement present Assessment & Plan Assessment & Plan (1) Obesity: Comment: Moderately obese, but has remained stable. Code(s): E66.9 - Obesity, unspecified Category: Medical Plan: PATIENT IS FULLY AWARE OF BEING OVERWEIGHT AND HE IS TRYING TO WATCH HIS DIET. (2) ROXY on CPAP: Comment: He has been using CPAP with nasal pillows which is quite comfortable. He is very compliant and sleeps good with the device. His CPAP device does not transmit the information. Code(s): G47.33 - Obstructive sleep apnea (adult) (pediatric); Z99.89 - Dependence on other enabling machines and devices Category: Medical Plan: Commended for his good compliance and he is advised to continue using the CPAP regularly every night. Follow-up once. A year is okay Coding Level of Care Code Est Pt Level 3 (36926) Diagnoses Obesity E66.9 ROXY on CPAP G47.33; Z99.89
--- OUTSIDE RECORDS SUMMARY | 2024-09-27 11:25 | XMS_ITS ---
Author Organization [facility] julieta [place] Address [address] [facility] [address] Care Team Providers Care Cover Maker Name Role Phone Chad Funk MD Primary Care Provider Laney Mirza Unavailable [phone] Allergies No Known Allergies REASON FOR VISIT [...] W/U Status Risk Notes Problem Atherosclerosis of [place] artery of both lower extremities, with unspecified presence of clinical manifestation (I70.203) Active confirmed Q7(A), Q8(2B), Q9(1B,2C) Vital Signs Height 5 ft 11 in in 09/11/2024 Weight 230 lbs 09/11/2024 BMI 32.07 kg/m2 09/11/2024 Blood pressure systolic 118 mm Hg 09/11/20 Blood pressure diastolic 70 mm Hg 024 Encounters Encounter Location Date Provider Diagnosis [facility] [place] [address] [place] [address] 09/11/2024 Laney Sauravjuan Atherosclerosis of [place] artery of both lower extremities, with unspecified presence of clinical manifestation I70.203 ; Tinea unguium B35.1 ; Pain in right toe(s) M79.674 and Pain in left toe(s) M79.675 Assessments Encounter Date Diagnosis (ICD Code) Assessment Notes Treatment Notes Treatment Clinical Notes Section Notes 09/11/2024 Atherosclerosis of [place] artery of both lower extremities, with unspecified presence of clinical manifestation (ICD-10 - I70.203) Q7(A), Q8(2B), Q9(1B,2C) 09/11/2024 Tinea unguium (ICD-10 - B35.1) 09/11/2024 Pain in right toe(s) (ICD-10 - M79.674) 09/11/2024 Pain in left toe(s) (ICD-10 - M79.675) Plan Of Treatment Next Appt Details Follow Up: 2 Months, Reason: Provider Name:Laney martinez, 11/21/2024 02:30:00 PM, [address] [place], [address], Procedure Notes * Category Sub-Category Detail Notes [...] use of a nail nipper and/or dremel-type tool grinder operator surface, to a more viable healthy nail plate [...] to maintain effectiveness in symptomatic relief - 22911 Keratoma Treatment Parring or Cutting o f [...] instrumentation by the physician of record - 53850, Q8 Progress Notes * Jon LEACH MDOB: [birth year] (83 yo M)Acc No.[id number]:09/11/2024 Progress Note Patient:?Jon LEACH Provider:?Laney Barrera DPM :1940???Age:83 Y???Sex:Male Erik e:09/11/2024 Address:[address] [place] [address] [place] Pcp:Chad Funk MD Subjective: * Chief Complaints: [...] * Hospitalization/Major Diagno stic Procedure:?3 days at [facility] and 2 weeks in rehab 04/2024 * [...] yes, walking. ?Marital status: . 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 * Medications:?TakingEliquis Z etia 10 [...] Assessment: 1.?Tinea unguium - B35.1???2 .?Atherosclerosis of [place] artery of both lower extremities, with unspecified [...] use of a nail nipper and/or dremel-type tool grinder operator surface, to a more viable healthy nail plate [...] to maintain effectiveness in symptomatic relief - 41222.?Keratoma Treatment:?Parring or Cutting of Benign Hyperkeratotic Lesion(s)?(-56) [...] instrumentation by the physician of record - 40882, Q8.? * Procedure Codes:?95206 DEBRI DE NAIL, 6 OR MORE, Modifiers: XS 67793 TRIM SKIN LESIONS, 2 TO 4, Modifiers: XS , Q8 * Follow Up:?2 Months * Images: * Sign off status: Completed true * Provider:?Laney Barrera, DPM Date:? Generated for Haris barton/Benjamin/Idalmissmsharad on:?09/27/2024 11:25 AM EST History and Physical Notes * HPI (History of Present Illness) Category Sub-Category Detail Notes Category Not es At Risk footcare Pt States Last PCP Visit: Date: 4 Examination Category Sub-Category Detail Notes Category Not [...]
--- OUTSIDE RECORDS SUMMARY | 2024-09-27 11:25 | XMS_ITS ---
Author Organization [facility] julieta [place] Address [address] [place] [address] Care Team Providers Care Partnership Manager Name Role Phone Chad Funk MD Primary Care Provider Laney Mirza Unavailable [phone] Allergies No Known Allergies REASON FOR VISIT [...] 024 Encounters Encounter Location Date Provider Diagnosis [facility] [place] [address] [place] [address] 07/06/2024 Laney Barrera Tinea unguium B35.1 ; [...] Reason: Provider Name:Laney martinez, 11/21/2024 02:30:00 PM, [address] [place] [address], [address], Procedure Notes * Category Sub-Category Detail Notes [...] as necessary. Patient chooses, no pharmaceutical tx (60138) Progress Notes * Jon LEACH MDOB: [birth year] (83 yo M)Acc No.[id number]:07/06/2024 Progress Note Patient:?Jon Leach Provider:?Laney Barrera DPM :1940???Age:83 Y???Sex:Male Erik e:07/06/2024 Address:[address] [place] [address] [place] Pcp:Chad Funk MD Subjective: * Chief Complaints: [...] * Hospitalization/Major Diagno stic Procedure:?3 days at [facility] and 2 weeks in rehab 04/2024 * [...] walking. ?Marital status: . 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 * Medications:?TakingZetia 10 MG Tablet [...] as necessary. Patient chooses, no pharmaceutical tx (29146).? * Procedure Codes:?38278 DEBRI DE NAIL, 6 OR MORE, Modifiers: XS * Follow Up:?2 Months * Images: * Sign off status: Completed true * Provider:?Laney Barrera, BERTA Date:? Generated for Haris barton/Benjamin/Misbah on:?09/27/2024 11:25 AM EST History and Physical [...]
--- OUTSIDE RECORDS SUMMARY | 2024-09-27 11:26 | XMS_ITS | Patient Health Record ---
Author Organization [facility] julieta [place] Address [address] [facility] [place] [address] Care Team Providers Care Audio/Video Engineer Name Role Phone Chad Funk MD Primary Care Provider Yumi MgJasson martinezen Unavailable [phone] Allergies No Known Allergies Reason For Referral [...] W/U Status Risk Notes Problem Atherosclerosis of [place] artery of both lower extremities, with unspecified presence of clinical manifestation (I70.203) Active confirmed Q7(A), Q8(2B), Q9(1B,2C) Vital Signs Blood pressure diastolic 70 mm Hg 09/11/2024 Height 5 ft 11 in in 09/11/2024 Blood pressure systolic 118 mm Hg 09/11/2024 Weight 230 lbs 09/11/2024 BMI 32.07 kg/m2 09/11/2024 Encounters Encounter Location Date Provider Diagnosis [address] [address] 11/22/2023 Laney Perica Tinea unguium B35.1 ; Tinea pedis of both feet B35.3 ; Pain in right toe(s) M79.674 and Pain in left toe(s) M79.[address] [address] 02/01/2024 Laney Perica Tinea unguium B35.1 ; Tinea pedis of both feet B35.3 ; Pain in right toe(s) M79.674 and Pain in left toe(s) M79.[address] [address] 04/11/2024 Laney Perica Tinea unguium B35.1 ; Tinea pedis of both feet B35.3 ; Pain in right toe(s) M79.674 and Pain in left toe(s) M79.[address] [address] 07/06/2024 Laney Perica Tinea unguium B35.1 ; Tinea pedis of both feet B35.3 ; Pain in right toe(s) M79.674 and Pain in left toe(s) M79.[address] [address] 09/11/2024 Laney Perica Atherosclerosis of [place] artery of both lower extremities, with unspecified [...] unguium (ICD-10 - B35.1) 09/11/2024 Atherosclerosis of [place] artery of both lower extremities, with unspecified [...] Name:Laney Dalila martinez, 11/21/2024 02:30:00 PM, [address] [place], [address], Insurance Providers Payer Name Payer Address Payer Phone Subscriber Number Group Number Insured Name Patient Relationship to Insured Coverage Start Date Coverage End Date [employer] Medicare [id number] [address] [address] [place] [address] [id number] Jon Bedoya Self - patient is the insured Medical (General) History Medical History History ICD Code Back,Hip,and Knee pain CAD (Cholesterol) Cataracts High blood pressure Osteoporosis Sciatica Measles Mumps Chicken pox Arthritis Surgical History Surgery Date(Month/Year) appendectomy wisdom teeth extraction tonsillectomy colonoscopy back surgery- under scapula Hospitalization History Reason Date(Month/Year) 3 days at [facility] and 2 weeks i n rehab 04/2024
--- OUTSIDE RECORDS SUMMARY | 2024-09-27 11:26 | XMS_ITS ---
Author Organization [facility] Address [address] [place] [address] Care Team Providers Care Professional Advisor Name Role Phone Blessing OSPINA, Chad Primary Care Provider Laney Mirza [phone] Hernandez Encounters Encounter Location Date Provider Diagnosis [address] [address] 06/29/2024 Laney aBrrera Plan Of Treatment Next Appt Details Provider Name:Laney martinez, 11/21/2024 02:30:00 PM, [address] [place] [address], [address], Progress Notes * Jon LEACH MDOB: [birth year] (83 yo M)Acc No.[id number]:06/29/2024 Progress Note Patient:?Jon LEACH Provider:?Laney Barrera DPM :1940???Age:83 Y???Sex:Male Erik e:06/29/2024 Address:[address] [place] [address] [facility] [id number] Pcp:Chad Funk MD Subjective: * Chief Complaints: [...] Barrera DPM Date:?07/2024 Generated for Haris barton/Benjamin/Misbah on:?09/27/2024 11:25 AM EST
== END 2024-09-27 13:16 | disposition home or self-care (01) ==
PROVIDERS: PCP Internal Medicine; Visit Provider Internal Medicine
DX: E66.9 Obesity, unspecified (principal); G47.33 Obstructive sleep apnea (adult) (pediatric); Z99.89 Dependence on other enabling machines and devices
CPT/HCPCS: 99213

== ENCOUNTER → 2024-09-27 10:44 | Outpatient (BNVA) | payer MEDICARE, SELFPAY | PROVIDERS: PCP Internal Medicine; Visit Provider Internal Medicine | DX: G47.33 Obstructive sleep apnea (adult) (pediatric) (principal); E66.9 Obesity, unspecified; Z99.89 Dependence on other enabling machines and devices; Z68.31 Body mass index [BMI] 31.0-31.9, adult | CPT/HCPCS: 99212 ==

== ENCOUNTER 2024-11-06 14:40 | Outpatient (AMB) | payer MEDICARE, SELFPAY ==
[2024-11-06 14:41] VITALS: BP 110/64; PULSE 61; BMI 31.7
--- NOTE | 2024-11-06 14:41 | MHC.OFFVIS ---
Vital Signs 11/06/24 14:41 Height 6 ft 1 in Weight 240 lb 4.862 oz BMI 31.7 BP 110/64 Blood Pressure Location Lt brachial Position Sitting Pulse 61 Intake Visit Reasons: 2 mth f/upo event w/ mobile telemetry/ echo Intake Note: 2 month follow-up echo and rashad feelng good Authorization Rep Required: No Allergies No Known Allergies Allergy (Verified 09/27/24 11:17) Medication List - Last Reconciled 11/06/24 by Yobani Goss MD apixaban (Eliquis) 5 mg PO BID ezetimibe 10 mg PO DAILY finasteride 5 mg PO DAILY lisinopril 10 mg PO DAILY omega-3 fatty acids (Fish Oil Concentrate) 1,000 mg PO DAILY tamsulosin 0.4 mg PO DAILY HPI Comments Details: Jon comes for follow-up. He underwent event monitor without having any symptoms. Was noted to have isolated PACs and PVCs. No episodes of atrial fibrillation. He had no symptoms while he was wearing the monitor. Echocardiogram shows normal LV ejection fraction. Mildly dilated ascending aorta was noted. Denies any new symptoms. No bleeding issues or neurologic events. Blood pressures been generally well controlled. He does have some balance issues in his currently using a walker [facility] Medical History HTN (hypertension) ROXY on CPAP Obesity Family History Father Heart attack Mother Heart attack Social History Alcohol intake: current Alcohol intake frequency: 0-2 drinks per day Alcohol type: wine Patient Tobacco Use Status: Former Tobacco user Advance Directives Date on File: 02/01/22 Review of Systems Const Denies chills, Denies fatigue, Denies fever(s), Denies frequent falls, Denies weakness, Denies weight gain and Denies weight loss ENT Denies dizziness Card Denies chest pain, Denies leg edema, Denies lightheadedness, Denies palpitations, Denies dyspnea, Denies dyspnea on exertion, Denies orthopnea and Denies other (loss of consciousness) Resp Denies cough, Denies dyspnea and Denies dyspnea on exertion GI Denies hematochezia and Denies change in stool character Musc Denies abnormal gait, Denies muscle weakness, Denies numbness, Denies radiating pain into limb and Denies tingling Neuro Denies Abnormal speech present, Denies abnormal gait, Denies dizziness, Denies frequent falls, Denies numbness, Denies tingling and Denies weakness Endo Denies fatigue and Denies palpitations Physical Exam Vital Signs: Last Vital Signs Pulse 61 11/06/24 14:41 BP 110/64 11/06/24 14:41 BMI result Body Mass Index 31.7 Const General: cooperative, comfortable, no acute distress, alert, awake and Physically active Nutritional Appearance: obese Orientation/consciousness: patient oriented x3 Limitations: ambulation with walker HEENT Head: Yes normocephalic and Yes atraumatic Neck Neck: Yes trachea midline, Yes supple and Yes no JVD Resp Effort & Inspection: normal respiratory effort Auscultation: clear to auscultation bilaterally Cardio Jugular venous distension: no JVD Palpation: normal PMI Rate: regular rate Rhythm: regular rhythm Heart sounds: S1 normal heart sound present, S2 normal heart sound present, no click, no gallops, no murmurs and no rubs Bruits: no carotid bruits GI Auscultation: normal bowel sounds Skin General skin exam: no rashes or lesions noted Neuro General: patient oriented x3 and no focal motor deficits Speech: No Abnormal speech present Extrem General: Yes no clubbing, cyanosis or edema Psych Appearance: grossly normal Assessment & Plan Assessment & Plan (1) Paroxysmal atrial fibrillation: Code(s): I48.0 - Paroxysmal atrial fibrillation Category: Medical Plan: Paroxysmal atrial fibrillation without any overt symptoms at this point time. No clinical recurrence was at this point time. Suggested that he may invest in his own smart phone based EKG device. He is interested he will look into it. Continue full oral anticoagulation, currently on Eliquis 5 mg b.i.d.. 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 Continue Eliquis lifelong. Semi annual renal function test should be pursued. Continue to participate in fall prevention techniques. (2) Ascending aorta enlargement: Code(s): I77.89 - Other specified disorders of arteries and arterioles Category: Medical Plan: Mild ascending aortic enlargement. Will follow up with echocardiogram in 1 year's time. Continue aggressive blood pressure control. Continue cholesterol modification got target goal LDL less than 100 mg/dL. No interventions required. Will follow up in the clinic in 1 year's time, sooner p.r.n.. Thank you for allowing me to partake in his care Coding Level of Care Code Est Pt Level 4 (74940) Complex EM visit Add On G2211 Diagnoses Paroxysmal atrial fibrillation I48.0 Ascending aorta enlargement I77.89
--- OUTSIDE RECORDS SUMMARY | 2024-11-06 15:42 | XMS_ITS ---
Author Organization [facility] julieta [place] Address [address] [facility] [place] [address] Care Team Providers Care Machine Tool Builder Name Role Phone Chad Funk MD Primary Care Provider Laney Mirza Unavailable [phone] Allergies No Known Allergies REASON FOR VISIT [...] 024 Encounters Encounter Location Date Provider Diagnosis [facility] [address] [place] [address] 07/06/2024 Laney Barrera Tinea unguium B35.1 ; [...] Reason: Provider Name:Laney martinez, 11/21/2024 02:30:00 PM, [address] [place] [address], [phone], Procedure Notes * Category Sub-Category Detail Notes [...] as necessary. Patient chooses, no pharmaceutical tx (87408) Progress Notes * Jon LEACH MDOB: [birth year] (83 yo M)Acc No.[id number]:07/06/2024 Progress Note Patient:?Jon Leach Provider:?Laney Barrera DPM :1940???Age:83 Y???Sex:Male Erik e:07/06/2024 Address:[address] [place] [address] [place], [place] Pcp:Chad Funk MD Subjective: * Chief Complaints: [...] * Hospitalization/Major Diagno stic Procedure:?3 days at [facility] and 2 weeks in rehab 04/2024 [...] yes, walking. ?Marital status: . 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 * Medications:?TakingZetia 10 MG Tablet [...] as necessary. Patient chooses, no pharmaceutical tx (99931).? * Procedure Codes:?46710 DEBRI DE NAIL, 6 OR MORE, Modifiers: XS * Follow Up:?2 Months * Images: * Sign off status: Completed true * Provider:?Laney Barrera, BERTA Date:? Generated for Haris barton/Benjamin/Misbah on:?11/06/2024 03:41 PM EST History and Physical Notes * [...]
--- OUTSIDE RECORDS SUMMARY | 2024-11-06 15:42 | XMS_ITS ---
Author Organization [facility] Address [address] [place] [address] Care Team Providers Care Mgmt Specialist Name Role Phone Blessing OSPINA, Chad Primary Care Provider Laney Mirza [phone] Hernandez Encounters Encounter Location Date Provider Diagnosis [address] [address] 06/29/2024 Laney Barrera Plan Of Treatment Next Appt Details Provider Name:Laney martinez, 11/21/2024 02:30:00 PM, [address] [place] [address], [phone], Progress Notes * Jon LEACH MDOB: [birth year] (83 yo M)Acc No.[id number]:06/29/2024 Progress Note Patient:?Jon LEACH Provider:?Laney Barrera DPM :1940???Age:83 Y???Sex:Male Erik e:06/29/2024 Address:[address] [place] [address] [place] [facility] [place] Pcp:Chad Funk MD Subjective: * Chief Complaints: [...] Barrera DPM Date:?07/2024 Generated for Haris barton/Benjamin/Misbah on:?11/06/2024 03:42 PM EST
--- OUTSIDE RECORDS SUMMARY | 2024-11-06 15:42 | XMS_ITS | Patient Health Record ---
Author Organization [facility] julieta [place] Address [address] [facility] [place] [address] Care Team Providers Care Ophthalmic Technician Name Role Phone Chad Funk MD Primary Care Provider Yumi MgJasson martinezen Unavailable [phone] Allergies No Known Allergies Reason For Referral [...] W/U Status Risk Notes Problem Atherosclerosis of [place] artery of both lower extremities, with unspecified presence of clinical manifestation (I70.203) Active confirmed Q7(A), Q8(2B), Q9(1B,2C) Vital Signs Blood pressure diastolic 70 mm Hg 09/11/2024 Height 5 ft 11 in in 09/11/2024 Blood pressure systolic 118 mm Hg 09/11/2024 Weight 230 lbs 09/11/2024 BMI 32.07 kg/m2 09/11/2024 Encounters Encounter Location Date Provider Diagnosis [address] [address] 11/22/2023 Laney Perica Tinea unguium B35.1 ; Tinea pedis of both feet B35.3 ; Pain in right toe(s) M79.674 and Pain in left toe(s) M79.[address] [address] 02/01/2024 Laney Perica Tinea unguium B35.1 ; Tinea pedis of both feet B35.3 ; Pain in right toe(s) M79.674 and Pain in left toe(s) M79.[address] [address] 04/11/2024 Laney Perica Tinea unguium B35.1 ; Tinea pedis of both feet B35.3 ; Pain in right toe(s) M79.674 and Pain in left toe(s) M79.[address] [address] 07/06/2024 Laney Perica Tinea unguium B35.1 ; Tinea pedis of both feet B35.3 ; Pain in right toe(s) M79.674 and Pain in left toe(s) M79.[address] [address] 09/11/2024 Laney Perica Atherosclerosis of [place] artery of both lower extremities, with unspecified [...] unguium (ICD-10 - B35.1) 09/11/2024 Atherosclerosis of [place] artery of both lower extremities, with unspecified [...] Name:Laney Dalila martinez, 11/21/2024 02:30:00 PM, [address] [place], [address], Insurance Providers Payer Name Payer Address Payer Phone Subscriber Number Group Number Insured Name Patient Relationship to Insured Coverage Start Date Coverage End Date [employer] Medicare [id number] [address] [address] [place] [address] [id number] Jon Bedoya Self - patient is the insured Medical (General) History Medical History History ICD Code Back,Hip,and Knee pain CAD (Cholesterol) Cataracts High blood pressure Osteoporosis Sciatica Measles Mumps Chicken pox Arthritis Surgical History Surgery Date(Month/Year) appendectomy wisdom teeth extraction tonsillectomy colonoscopy back surgery- under scapula Hospitalization History Reason Date(Month/Year) 3 days at [facility] and 2 weeks i n rehab 04/2024
--- OUTSIDE RECORDS SUMMARY | 2024-11-06 15:42 | XMS_ITS ---
Author Organization [facility] julieta [place] Address [address] [facility] [place] [address] Care Team Providers Care Production Ski Repairer Name Role Phone Chad Funk MD Primary Care Provider Laney Mirza Unavailable [phone] Allergies No Known Allergies REASON FOR VISIT [...] W/U Status Risk Notes Problem Atherosclerosis of [place] artery of both lower extremities, with unspecified presence of clinical manifestation (I70.203) Active confirmed Q7(A), Q8(2B), Q9(1B,2C) Vital Signs Height 5 ft 11 in in 09/11/2024 Weight 230 lbs 09/11/2024 BMI 32.07 kg/m2 09/11/2024 Blood pressure systolic 118 mm Hg 09/11/20 Blood pressure diastolic 70 mm Hg 024 Encounters Encounter Location Date Provider Diagnosis [facility] [address] [place] [address] 09/11/2024 Laney Sauravjuan Atherosclerosis of [place] artery of both lower extremities, with unspecified presence of clinical manifestation I70.203 ; Tinea unguium B35.1 ; Pain in right toe(s) M79.674 and Pain in left toe(s) M79.675 Assessments Encounter Date Diagnosis (ICD Code) Assessment Notes Treatment Notes Treatment Clinical Notes Section Notes 09/11/2024 Atherosclerosis of [place] artery of both lower extremities, with unspecified presence of clinical manifestation (ICD-10 - I70.203) Q7(A), Q8(2B), Q9(1B,2C) 09/11/2024 Tinea unguium (ICD-10 - B35.1) 09/11/2024 Pain in right toe(s) (ICD-10 - M79.674) 09/11/2024 Pain in left toe(s) (ICD-10 - M79.675) Plan Of Treatment Next Appt Details Follow Up: 2 Months, Reason: Provider Name:Laney martinez, 11/21/2024 02:30:00 PM, [address] [place], [address], Procedure Notes * Category Sub-Category Detail Notes [...] use of a nail nipper and/or dremel-type refractory grinder operator, to a more viable healthy nail plate [...] to maintain effectiveness in symptomatic relief - 81087 Keratoma Treatment Parring or Cutting o f [...] instrumentation by the physician of record - 28534, Q8 Progress Notes * Jon LEACH MDOB: [birth year] (83 yo M)Acc No.[id number]:09/11/2024 Progress Note Patient:?Jon LEACH Provider:?Laney Barrera DPM :1940???Age:83 Y???Sex:Male Erik e:09/11/2024 Address:[address] [place] [address] [place], [place] Pcp:Chad Funk MD Subjective: * Chief Complaints: [...] * Hospitalization/Major Diagno stic Procedure:?3 days at [facility] and 2 weeks in rehab 04/2024 [...] yes, walking. ?Marital status: . 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 * Medications:?TakingEliquis Z etia 10 [...] Assessment: 1.?Tinea unguium - B35.1???2 .?Atherosclerosis of [place] artery of both lower extremities, with unspecified [...] use of a nail nipper and/or dremel-type refractory grinder operator, to a more viable healthy nail plate [...] to maintain effectiveness in symptomatic relief - 33034.?Keratoma Treatment:?Parring or Cutting of Benign Hyperkeratotic Lesion(s)?(-56) [...] instrumentation by the physician of record - 50059, Q8.? * Procedure Codes:?18947 DEBRI DE NAIL, 6 OR MORE, Modifiers: XS 80164 TRIM SKIN LESIONS, 2 TO 4, Modifiers: XS , Q8 * Follow Up:?2 Months * Images: * Sign off status: Completed true * Provider:?Laney Barrera, DPM Date:? Generated for Haris barton/Benjamin/Misbah on:?11/06/2024 03:42 PM EST History and Physical Notes * [...]
== END 2024-11-06 15:11 | disposition home or self-care (01) ==
PROVIDERS: PCP Internal Medicine; Visit Provider Internal Medicine Cardiovascular Disease
DX: I48.0 Paroxysmal atrial fibrillation (principal); I77.89 Other specified disorders of arteries and arterioles
CPT/HCPCS: 99214; G2211

== ENCOUNTER → 2024-11-06 14:40 | Outpatient (BNVA) | payer MEDICARE, SELFPAY | PROVIDERS: PCP Internal Medicine; Visit Provider Internal Medicine Cardiovascular Disease | DX: I48.0 Paroxysmal atrial fibrillation (principal); I77.89 Other specified disorders of arteries and arterioles | CPT/HCPCS: 99212 ==

== ENCOUNTER 2024-11-28 09:10 | Outpatient (AMB) | payer MEDICARE, SELFPAY ==
[2024-11-28 09:25] VITALS: BP 120/72; PULSE 94; RESP 18; TEMP 36.6; O2SAT 98; BMI 30.5
--- NOTE | 2024-11-28 09:25 | A.OFFPC_ITS ---
Vital Signs 11/28/24 09:25 Height 6 ft 1 in Weight 231 lb BMI 30.5 BP 120/72 Respiration 18 Pulse 94 Pulse Source Pulse Oximeter Temp 97.8 F Temp Source Temporal Artery Scan Pulse Oximetry (%) 98 Oxygen Delivery Method Room Air Intake Visit Reasons: Routine Global Engineering Manager Required: No Accompanied by: Self / Same As Patient Allergies No Known Allergies Allergy (Verified 11/28/24 09:53) Medication List - Last Reconciled 11/28/24 by Edgar Lopez MD apixaban (Eliquis) 5 mg PO BID ezetimibe 10 mg PO DAILY finasteride 5 mg PO DAILY lisinopril 10 mg PO DAILY omega-3 fatty acids (Fish Oil Concentrate) 1,000 mg PO DAILY tamsulosin 0.4 mg PO DAILY Tobacco use date assessed: 11/28/24 Fall risk assessment: 2 + Falls in past year Last assessed Fall Risk: 11/28/24 Dental Screening Dental Screen Date: 11/28/24 Did you have a dental visit in the last 12 months?: Yes Did you have a dental problem in the last 6 months where you did not have access to dental care?: No HPI Routine HPI Details 83-year-old male presents to the office to discuss his chronic medical conditions. Patient is at baseline state of health. Compliant with all medications. Recently was seen by Cardiology for annual surveillance for aortic enlargement. Patient has history of paroxysmal atrial fibrillation and is on anticoagulation. [facility] Medical History (Updated 11/28/24 @ 09:56 by Edgar Lopez MD) Paroxysmal atrial fibrillation HTN (hypertension) ROXY on CPAP Obesity Family History Father Heart attack Mother Heart attack Social History Housing: House Alcohol intake: current Alcohol intake frequency: 0-2 drinks per day Alcohol type: wine Patient Tobacco Use Status: Former Tobacco user Advance Directives Date on File: 02/01/22 service: Yes Current occupational status: retired Cognitive needs: Yes (walker) Hearing needs: No Vision needs: Yes (reading glasses) Questionnaire PHQ-9 Over the last 2 weeks, how often have you been bothered by any of the following problems? 1. Little interest or pleasure in doing things: not at all 2. Feeling down, depressed, or hopeless: not at all 3. Trouble falling or staying asleep, or sleeping too much: not at all 4. Feeling tired or having little energy: not at all 5. Poor appetite or overeating: not at all 6. Feeling bad about yourself - or that you are a failure or have let yourself or your family down: not at all 7. Trouble concentrating on things, such as reading the newspaper or watching television: not at all 8. Moving or speaking so slowly that other people could have noticed. Or the opposite - being so fidgety or restless that you have been moving around a lot more than usual: not at all 9. Thoughts that you would be better off or of hurting yourself in some way: not at all Total score: 0 Source: Developed by Drs. Jeison Dorado, Aide Reese, Tyrese Gil and colleagues, with an educational nahomy from [employer]. Thrive Questionnaire Date Thrive assessed: 11/28/24 I am a: Patient What is your living situation today?: I have a steady place to live Within the past 12 months, did the food you bought not last and you didn't have the money to get more?: Never true Within the past 12 months, did you worry whether your food would run out before you got money to buy more?: Never true Do you have trouble paying for medicines?: No Do you have trouble getting transportation to medical appointments?: No Do you have trouble paying your heating and electricity bill?: No Do you have trouble taking care of your child, family member or friend?: No Do you have trouble with day-to-day activities such as bathing, preparing meals, shopping, managing finances, etc.?: No Are you currently unemployed and looking for a job?: No Are you interested in more education?: No THRIVE Score: 0 AUDIT C Alcohol Use Questionnaire (AUDIT-C) 1. How often do you have a drink containing alcohol?: 4 or more times a week 2. How many drinks containing alcohol do you have on a typical day when you are drinking?: 1 or 2 3. How often do you have six or more drinks on one occasion?: Never Total Score: 4 HUANG-7 AMB Questionnaire HUANG-7 Date HUANG - 7 assessed: 11/28/24 Feeling nervous, anxious, or on edge: 0 = Not at all Not being able to stop or control worryin = Not at all Worrying too much about different things: 0 = Not at all Trouble relaxin = Not at all Being so restless that it is hard to sit still: 0 = Not at all Becoming easily annoyed or irritable: 0 = Not at all Feeling afraid as if something awful might happen: 0 = Not at all Total HUANG-7 score (0-4 normal; 5-9 mild; 10-14 moderate; 15-21 severe): 0 Source: Developed by Drs. Jeison Dorado, Aide Reese, Tyrese Gil and colleagues, with an educational nahomy from [employer]. Physical exam (Primary Care) Vital Signs: Last Vital Signs Temp 97.8 F 11/28/24 09:25 Pulse 94 11/28/24 09:25 Resp 18 11/28/24 09:25 BP 120/72 11/28/24 09:25 Pulse Ox 98 11/28/24 09:25 Oxygen Delivery Method Room Air 11/28/24 09:25 Care Plan Goal for BP management: Blood pressure is stable. Continue current medications. BMI result Body Mass Index 30.5 BMI Assessment/Plan discussion: High (1 lb per week weight loss suggested.) BMI High, discussed plan: lifestyle, weight reduction and dietary Tobacco/Smoking Status: Tobacco use Status Tobacco use date assessed 11/28/24 11/28/24 09:36 Patient Tobacco Use Status Former Tobacco user 11/28/24 09:36 PHQ-9: PHQ-9 Score PHQ-9: Total score 0 11/28/24 09:40 Thrive Assessment: Date of Thrive Assessment Date Thrive assessed 11/28/24 11/28/24 09:36 Const General: cooperative and healthy appearing Nutritional Appearance: well nourished Orientation/consciousness: patient oriented x3 Limitations: no limitations HENMT Head: Yes normal to inspection Eyes General: appearance normal, both eyes and all related structures Neck Neck: Yes normal visual inspection Chest Chest palpation & inspection: normal palpation of entire chest wall Resp Effort & Inspection: normal respiratory effort Neuro General: patient oriented x3 Coding Level of Care Code New Pt Level 4 (98538) Complex EM visit Add On G2211 Diagnoses HTN (hypertension) I10 Paroxysmal atrial fibrillation I48.0 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 Continue current medications. (2) Paroxysmal atrial fibrillation: Code(s): I48.0 - Paroxysmal atrial fibrillation Category: Medical Plan: Currently in sinus rhythm. Continue anticoagulation. (3) Ascending aorta enlargement: Code(s): I77.89 - Other specified disorders of arteries and arterioles Category: Medical Plan: Condition being followed up by Cardiology with serial annual echocardiograms. (4) ROXY on CPAP: Comment: He has been using CPAP with nasal pillows which is quite comfortable. He is very compliant and sleeps good with the device. His CPAP device does not transmit the information. Code(s): G47.33 - Obstructive sleep apnea (adult) (pediatric); Z99.89 - Dependence on other enabling machines and devices Category: Medical Plan: Condition is stable
--- OUTSIDE RECORDS SUMMARY | 2024-11-28 09:49 | XMS_ITS ---
Author Organization [facility] julieta [place] Address [address] [facility] [place] [address] Care Team Providers Care Event Planning Manager Name Role Phone Chad Funk MD Primary Care Provider Laney Mirza Unavailable [phone] Allergies No Known Allergies REASON FOR VISIT [...] W/U Status Risk Notes Problem Atherosclerosis of [place] artery of both lower extremities, with unspecified presence of clinical manifestation (I70.203) Active confirmed Q7(A), Q8(2B), Q9(1B,2C) Vital Signs Height 5 ft 11 in in 09/11/2024 Weight 230 lbs 09/11/2024 BMI 32.07 kg/m2 09/11/2024 Blood pressure systolic 118 mm Hg 09/11/20 Blood pressure diastolic 70 mm Hg 024 Encounters Encounter Location Date Provider Diagnosis [facility] [place] [address] [place] [address] 09/11/2024 Laney Bruce Atherosclerosis of [place] artery of both lower extremities, with unspecified presence of clinical manifestation I70.203 ; Tinea unguium B35.1 ; Pain in right toe(s) M79.674 and Pain in left toe(s) M79.675 Assessments Encounter Date Diagnosis (ICD Code) Assessment Notes Treatment Notes Treatment Clinical Notes Section Notes 09/11/2024 Atherosclerosis of [place] artery of both lower extremities, with unspecified presence of clinical manifestation (ICD-10 - I70.203) Q7(A), Q8(2B), Q9(1B,2C) 09/11/2024 Tinea unguium (ICD-10 - B35.1) 09/11/2024 Pain in right toe(s) (ICD-10 - M79.674) 09/11/2024 Pain in left toe(s) (ICD-10 - M79.675) Plan Of Treatment Next Appt Details Follow Up: 2 Months, Reason: Provider Name:Laney martinez, 02/13/2025 09:00:00 AM, [address] [facility], [place], [address], Procedure Notes * Category Sub-Category Detail Notes [...] use of a nail nipper and/or dremel-type blade grinder, to a more viable healthy nail [...] to maintain effectiveness in symptomatic relief - 61734 Keratoma Treatment Parring or Cutting o f [...] instrumentation by the physician of record - 83482, Q8 Progress Notes * Jon LEACH MDOB: [birth year] (83 yo M)Acc No.[id number]:09/11/2024 Progress Note Patient:?Jon LEACH Provider:?Laney Barrera DPM :1940???Age:83 Y???Sex:Male Erik e:09/11/2024 Address:[address] [place] [address] [place], [place] Pcp:Chad Funk MD Subjective: * Chief Complaints: [...] * Hospitalization/Major Diagno stic Procedure:?3 days at [facility] and 2 weeks in rehab 04/2024 [...] yes, walking. ?Marital status: . 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 * Medications:?TakingEliquis Z etia 10 [...] Assessment: 1.?Tinea unguium - B35.1???2 .?Atherosclerosis of [place] artery of both lower extremities, with unspecified [...] use of a nail nipper and/or dremel-type blade grinder, to a more viable healthy nail [...] to maintain effectiveness in symptomatic relief - 23493.?Keratoma Treatment:?Parring or Cutting of Benign Hyperkeratotic Lesion(s)?(-56) [...] instrumentation by the physician of record - 99199, Q8.? * Procedure Codes:?15032 DEBRI DE NAIL, 6 OR MORE, Modifiers: XS 84836 TRIM SKIN LESIONS, 2 TO 4, Modifiers: XS , Q8 * Follow Up:?2 Months * Images: * Sign off status: Completed true * Provider:?Laney Barrera, DPM Date:? Generated for Haris barton/Benjamin/eTransmitting on:?11/28/2024 09:49 AM EDT History and Physical Notes * HPI (History [...]
--- OUTSIDE RECORDS SUMMARY | 2024-11-28 09:49 | XMS_ITS | Encounter Summary ---
Author Organization [facility] Address [address] [place] [address] Care Team Providers Care Funeral Limousine Driver Name Role Phone Physician, Pcp Unknown Primary Care Provider Martha vailable Encounter Details Date Type Department Care Team (Late st Contact Info) Description 11/22/2024 Lab Requisition [facility] - Main Lab [address] [facility] [place] [address] Dlae Monk, [address] [place] [address] Other microscopic hematuria Social History Tobacco Use Types Packs/Day Years Used Date Smoking Tobacco: Never Assessed Sex and Gender Information Value Date Recorded Sex Assigned at Not on file Legal Sex Male 8:41 AM EST Gender Identity Not on file Sexual Orientation Not on file documented as of this encounter Plan of Treatment Pending Results Name Type Priority Associated Diagnoses Date /Time Anatomic pathology outside consult Pathology and Cytology Routine Other microscopic hematuria 11/20/2024 12:00 AM EST documented as of this encounter Visit Diagnoses Diagnosis Other microscopic hematuria documented in this encounter Care Teams Funeral Limousine Driver Relationship Specialty Start Date End Date Physician, Pcp Unknown PCP - General 11/22/24 documented as of this encounter
--- OUTSIDE RECORDS SUMMARY | 2024-11-28 09:49 | XMS_ITS | Patient Health Record ---
Author Organization [facility] Address [address] [facility] [place] [address] Care Team Providers Care Director Of Employee Development Name Role Phone Chad Funk MD Primary Care Provider Yumi alvarado Jasson Barreraen Unavailable [phone] Allergies No Known Allergies Reason For Referral No Information Medications Medication SIG (Take, Route, Frequency, Duration) Notes Start Date End Date Status Eliquis Active Zetia 10 MG 1 tablet Orally Once a day for 30 day(s) 08/23/2023 Active Finasteride 5 MG Oral for 90 Days Active Ciclopirox Olamine 0.77 % 1 application Externally Twice a day for 30 days Not-Taki ng Lisinopril 10 MG Oral for 90 Days Active Tamsulosin HCl 0.4 MG Oral for 90 Days Active Fish Oil 1000 MG 1 capsule Orally Onc e a day for 30 day(s) 08/23/2023 Active Baby Aspirin 08/23/2023 Not-Jalen john Social History Tobacco Use: Social History Observation Description Date Details (start date - stop date) Never Smoker NA - NA Alcohol Screen Question Answer Notes Did you [...] Are you an other tobacco user? No Tobacco Control (Standard) Question Answer Notes Tobacco use: Nonsmoker Problems Problem Type SNOMED Code ICD Code Onset Dates Problem Status W/U Status Risk Notes Problem Atherosclerosis of [place] artery of both lower extremities, with unspecified presence of clinical manifestation (I70.203) Active confirmed Q7(A), Q8(2B), Q9(1B,2C) Vital Signs Blood pressure diastolic 70 mm Hg 11/21/2024 Height 5 ft 11 in in 11/21/2024 Blood pressure systolic 117 mm Hg 11/21/2024 Weight 230 lbs 11/21/2024 BMI 32.07 kg/m2 11/21/2024 Encounters Encounter Location Date Provider Diagnosis [address] [address] 02/01/2024 Laney Perica Tinea unguium B35.1 ; Tinea pedis of both feet B35.3 ; Pain in right toe(s) M79.674 and Pain in left toe(s) M79.[address] [address] 04/11/2024 Laney Perica Tinea unguium B35.1 ; Tinea pedis of both feet B35.3 ; Pain in right toe(s) M79.674 and Pain in left toe(s) M79.[address] [address] 07/06/2024 Laney Perica Tinea unguium B35.1 ; Tinea pedis of both feet B35.3 ; Pain in right toe(s) M79.674 and Pain in left toe(s) M79.[address] [address] 09/11/2024 Laney Perica Atherosclerosis of [place] artery of both lower extremities, with unspecified presence of clinical manifestation I70.203 ; Tinea unguium B35.1 ; Pain in right toe(s) M79.674 and Pain in left toe(s) M79.[address] [address] 11/21/2024 Laney Perica Atherosclerosis of [place] artery of both lower extremities, with unspecified presence of clinical manifestation I70.203 ; Tinea unguium B35.1 ; Pain in right toe(s) M79.674 and Pain in left toe(s) M79.675 Assessments Encounter Date Diagnosis (ICD Code) Assessment Notes Treatment Notes Treatment Clinical Notes Section Notes 02/01/2024 Tinea unguium (ICD-10 - B35.1) 04/11/2024 Tinea unguium (ICD-10 - B35.1) 07/06/2024 Tinea unguium (ICD-10 - B35.1) 07/06/2024 Tinea pedis of both feet (ICD-10 - B35.3) 09/11/2024 Tinea unguium (ICD-10 - B35.1) 09/11/2024 Atherosclerosis of [place] artery of both lower extremities, with unspecified presence of clinical manifestation (ICD-10 - I70.203) Q7(A), Q8(2B), Q9(1B,2C) 11/21/2024 Atherosclerosis of [place] artery of both lower extremities, with unspecified presence of clinical manifestation (ICD-10 - I70.203) Q7(A), Q8(2B), Q9(1B,2C) 11/21/2024 Tinea unguium (ICD-10 - B35.1) 09/11/2024 Pain [...] Pain in left toe(s) (ICD-10 - M79.675) 11/21/2024 Pain in right toe(s) (ICD-10 - M79.674) 11/21/2024 Pain in left toe(s) (ICD-10 - M79.675) Plan Of Treatment Next Appt Details Provider Name:Laney martinez, 02/13/2025 09:00:00 AM, [address] [place] [address], [phone], Insurance Providers Payer Name Payer Address Payer Phone Subscriber Number Group Number Insured Name Patient Relationship to Insured Coverage Start Date Coverage End Date [employer] Medicare [id number] [address] [address] [place] [address] [id number] Jon Bedoya Self - patient is the insured Medical (General) History Medical History History ICD Code Back,Hip,and Knee pain CAD (Cholesterol) Cataracts High blood pressure Osteoporosis Sciatica Measles Mumps Chicken pox Arthritis Surgical History Surgery Date(Month/Year) appendectomy wisdom teeth extraction tonsillectomy colonoscopy back surgery- under scapula Hospitalization History Reason Date(Month/Year) 3 days at [facility] and 2 weeks i n rehab 04/2024
--- OUTSIDE RECORDS SUMMARY | 2024-11-28 09:49 | XMS_ITS ---
Author Organization [facility] [place] Address [address] [facility] [place] [address] Care Team Providers Care Adoption Services Manager Name Role Phone Chad Funk MD Primary Care Provider Laney Mirza Unavailable [phone] Allergies No Known Allergies REASON FOR VISIT [...] 024 Encounters Encounter Location Date Provider Diagnosis [facility] [place] [address] [place] [address] 07/06/2024 Laney Barrera Tinea unguium B35.1 ; [...] Reason: Provider Name:Laney martinez, 02/13/2025 09:00:00 AM, [address] [place] [address], [phone], Procedure Notes * Category Sub-Category Detail Notes [...] as necessary. Patient chooses, no pharmaceutical tx (48157) Progress Notes * Jon LEACH MDOB: [birth year] (83 yo M)Acc No.[id number]:07/06/2024 Progress Note Patient:?Jon Leach Provider:?Laney Barrera DPM :1940???Age:83 Y???Sex:Male Erik e:07/06/2024 Address:[address] [place] [address] [place] Pcp:Chad Funk MD Subjective: * Chief Complaints: [...] * Hospitalization/Major Diagno stic Procedure:?3 days at [facility] and 2 weeks in rehab 04/2024 [...] yes, walking. ?Marital status: . 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 * Medications:?TakingZetia 10 MG Tablet [...] as necessary. Patient chooses, no pharmaceutical tx (13480).? * Procedure Codes:?11199 DEBRI DE NAIL, 6 OR MORE, Modifiers: XS * Follow Up:?2 Months * Images: * Sign off status: Completed true * Provider:?Laney Barrera, BERTA Date:? Generated for Haris barton/Benjamin/Misbah on:?11/28/2024 09:49 AM EDT History and Physical [...]
--- OUTSIDE RECORDS SUMMARY | 2024-11-28 09:49 | XMS_ITS | Clinical Summary ---
Author Organization [address] [facility] Address [address] [place] [address] Phone Care Team Providers Care Fish Cleaner Machine Tender Name Role Phone Physician, Pcp Unknown Primary Care Provider Martha vailable Encounters Date Type Department Care Team Description 11/22/2024 Lab Requisition [facility] - Main Lab [address] [facility] [place] [address] [place] [address] Dale Monk PA Other microscopic hematuria from Last 3 Months Social History Tobacco Use Types Packs/Day Years Used Date Smoking Tobacco: Never Assessed Sex and Gender Information Value Date Recorded Sex Assigned at Not on file Legal Sex Male 8:41 AM EST Gender Identity Not on file Sexual Orientation Not on file Plan of Treatment Health Maintenance Due Date Last Done Comments DTaP,Tdap,and Td Vaccines (1 - Tdap) 12/23/1959 Pneumococcal Vaccine: 50+ Ye ars (1 of 1 - PCV) 1990 Zoster Vaccines (1 of 2) 1990 RSV Immunization Patients 60 + Years Old (1 - 1-dose 75+ series) 12/23/2015 COVID-19 Vaccine ( - 2023-2 5 season) 2024 Influenza Vaccine (#1) 2024 Cholesterol Screening (Lipid Panel) 11/22/2024 Depression Screening 11/22/2024 Falls Risk Assessment 11/22/2024 Medicare Annual Wellness Visit 11/22/2024 Social Influencers of Health Screening 11/22/2024 HIB Vaccines Aged Out No longer eligi ble based on patient's age to complete this topic HPV Vaccines Aged Out No longer eligi ble based on patient's age to complete this topic Hepatitis A Vaccines Aged Out No long er eligible based on patient's age to complete this topic Hepatitis B Vaccines Aged Out No long er eligible based on patient's age to complete this topic IPV Vaccines Aged Out No longer eligi ble based on patient's age to complete this topic MMR Vaccines Aged Out No longer eligi ble based on patient's age to complete this topic Meningococcal ACWY Vaccine Aged Out N o longer eligible based on patient's age to complete this topic Meningococcal B Vacine Aged Out No lo nger eligible based on patient's age to complete this topic RSV Immunization Patients Un carmen 20 months Aged Out No longer eligible b ased on patient's age to complete this topic Varicella Vaccines Aged Out No longer eligible based on patient's age to complete this topic Insurance [employer] MEDICARE Care Teams Fish Cleaner Machine Tender Relationship Specialty Start Date End Date Physician, Pcp Unknown PCP - General 11/22/24
--- OUTSIDE RECORDS SUMMARY | 2024-11-28 09:49 | XMS_ITS ---
Author Organization [facility] Address [address] [facility] [address] Care Team Providers Care Air Conditioning Engineer Name Role Phone Chad Funk MD Primary Care Provider Laney Mirza Unavailable [phone] Allergies No Known Allergies REASON FOR VISIT At Risk Footcare, Painful Nail(s) aggravated by shoes and causing difficulty standing/walking. Medications Medication SIG (Take, Route, Frequency, Duration) Notes Start Date End Date Status Finasteride 5 MG Oral for 90 Days Active Lisinopril 10 MG Oral for 90 Days Active Tamsulosin HCl 0.4 MG Oral for 90 Days Active Fish Oil 1000 MG 1 capsule Orally Onc e a day for 30 day(s) 08/23/2023 Active Baby Aspirin 08/23/2023 Not-Ta king Deon Active Zetia 10 MG 1 tablet Orally Once a day for 30 day(s) 08/23/2023 Active Ciclopirox Olamine 0.77 % 1 application Externally Twice a day for 30 days Not-Angelita barton Social History Tobacco Use: Social History Observation Description Date Details (start date - stop date) Never Smoker NA - NA Tobacco use other than smoking: Question Answer Notes Are you an other tobacco user? No Tobacco Control (Standard) Question Answer Notes Tobacco use: Nonsmoker Vital Signs Height 5 ft 11 in in 11/21/2024 Weight 230 lbs 11/21/2024 BMI 32.07 kg/m2 11/21/2024 Blood pressure systolic 117 mm Hg 11/22/19 25 Blood pressure diastolic 70 mm Hg 025 Encounters Encounter Location Date Provider Diagnosis [facility] [place] [address] [place] [address] 11/21/2024 Laney Barrera Atherosclerosis of [place] artery of both lower extremities, with unspecified presence of clinical manifestation I70.203 ; Tinea unguium B35.1 ; Pain in right toe(s) M79.674 and Pain in left toe(s) M79.675 Assessments Encounter Date Diagnosis (ICD Code) Assessment Notes Treatment Notes Treatment Clinical Notes Section Notes 11/21/2024 Atherosclerosis of [place] artery of both lower extremities, with unspecified presence of clinical manifestation (ICD-10 - I70.203) Q7(A), Q8(2B), Q9(1B,2C) 11/21/2024 Tinea unguium (ICD-10 - B35.1) 11/21/2024 Pain in right toe(s) (ICD-10 - M79.674) 11/21/2024 Pain in left toe(s) (ICD-10 - M79.675) Plan Of Treatment Next Appt Details Follow Up: 2 Months, Reason: Provider Name:Laney martinez, 02/13/2025 09:00:00 AM, [address] [place] [address], [phone], Procedure Notes * Category Sub-Category Detail Notes [...] use of a nail nipper and/or dremel-type lap grinder, to a more viable healthy nail [...] to maintain effectiveness in symptomatic relief - 31252 Keratoma Treatment Parring or Cutting o f [...] instrumentation by the physician of record - 74356, Q8 Progress Notes * Jon LEACH MDOB: [birth year] (83 yo M)Acc No.[id number]:11/21/2024 Progress Note Patient:?Jon LEACH Provider:?Laney Barrera DPM :1940???Age:83 Y???Sex:Male Erik e:11/21/2024 Address:[address] [place], [place] [id number] Pcp:Chad Funk MD Subjective: * Chief Complaints: * ???At Risk FootcarePainful N ail(s) aggravated by shoes and causing difficulty standing/walking. * HPI: ???At Risk footcare:?Pt States Last PCP Visit:?Date?08/29/2024 * ROS:?General/Constitutional:?Nausea?denies, denies.?Vomiting?denies, denies.?Hunger Thirst?denies, denies.?Loss appetite?denies, [...] * Hospitalization/Major Diagno stic Procedure:?3 days at [facility] and 2 weeks in rehab 04/2024 * Family History:?Mother: dece ased, diagnosed with Unspecified heart disease.?Father: .? * Social History:?Tobacco Use:?Tobacco use other than smoking?Are you an other tobacco user??No ?Tobacco Control (Standard)?Tobacco use:?Nonsmoker ???Miscellaneous:?Caffeine: yes, 1 cups per day. ?Children: no. ?Exercise: yes, walking. ?Marital status: . 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 * Medications:?TakingEliquis Z etia 10 [...] 230, BMI: 32.07, Shoe size: 9.5, BP: 117/70 mm Hg, Ht-cm: 180.34 cm, Wt-k.33 kg. [...] today.?ORIENTED:?person, place, and time.? Assessment: * Assessment: 1.?Atherosclerosis of [place] artery of both lower extremities, with unspecified presence of clinical manifestation - I70.203 (Primary)???Notes :Q7(A), Q8(2B), Q9(1B,2C)???2.?Tinea unguium - B35.1???3.?Pain in right toe(s) - M79.674???4.?Pain in left [...] use of a nail nipper and/or dremel-type lap grinder, to a more viable healthy nail [...] to maintain effectiveness in symptomatic relief - 41756.?Keratoma Treatment:?Parring or Cutting of Benign Hyperkeratotic Lesion(s)?(-56) [...] instrumentation by the physician of record - 80193, Q8.? * Procedure Codes:?20172 DEBRI DE NAIL, 6 OR MORE, Modifiers: XS 76841 TRIM SKIN LESIONS, 2 TO 4, Modifiers: XS , Q8 * Follow Up:?2 Months * Images: * Sign off status: Completed true * Provider:?Laney Barrera DPM Date:?01/2025 Generated for Haris barton/Benjamin/eTransmsharad on:?11/28/2024 09:48 AM EDT History and Physical Notes * [...]
== END 2024-11-28 09:52 | disposition home or self-care (01) ==
LOC: HO.HMCHD 09:10
PROVIDERS: PCP Internal Medicine; Visit Provider Internal Medicine
DX: I10 Essential (primary) hypertension (principal); I48.0 Paroxysmal atrial fibrillation; I77.89 Other specified disorders of arteries and arterioles; G47.33 Obstructive sleep apnea (adult) (pediatric); Z99.89 Dependence on other enabling machines and devices

== ENCOUNTER → 2024-11-28 09:10 | Outpatient (BNVA) | payer MEDICARE, SELFPAY | PROVIDERS: PCP Internal Medicine; Visit Provider Internal Medicine | DX: I10 Essential (primary) hypertension (principal); I48.0 Paroxysmal atrial fibrillation; I77.89 Other specified disorders of arteries and arterioles; G47.33 Obstructive sleep apnea (adult) (pediatric); Z99.89 Dependence on other enabling machines and devices | CPT/HCPCS: 99202 ==

== ENCOUNTER 2025-04-04 07:52 | Outpatient (AMB) | payer MEDICARE, SELFPAY ==
--- OUTSIDE RECORDS SUMMARY | 2025-04-04 07:55 | XMS_ITS | Encounter Summary ---
Author Organization [facility] Address [address] [place] [address] Care Team Providers Care Operations Agent Name Role Phone Physician, Pcp Unknown Primary Care Provider Martha vailable Encounter Details Date Type Department Care Team (Late st Contact Info) Description 11/22/2024 Lab Requisition [facility] - Main Lab [address] [facility] [place] [address] Dale Monk, [address] [place] [address] Other microscopic hematuria Social History Tobacco Use Types Packs/Day Years Used Date Smoking Tobacco: Never Assessed Sex and Gender Information Value Date Recorded Sex Assigned at Not on file Legal Sex Male 8:41 AM EST Gender Identity Not on file Sexual Orientation Not on file documented as of this encounter Plan of Treatment Not on file documented as of this encounter Procedures Procedure Name Priority Date/Time Associated Diagnosis Comments AP OUTSIDE CONSULT Routine 11/20/2024 12 :00 AM EST Other microscopic hematuria documented in this encounter Results * Anatomic pathology outside consult (11/20/2024 12:00 AM EST) Final Diagnosis A. Urine, Voided, ([id number]): Negative for high grade urothelial carcinoma. 11/29/2024 5:[address] [facility] Clinical Information Other microscopic hematuria R31.29 Urine cytology with reflex UroVysion (AUC/SHGUC) 11/29/2024 5:[address] [facility] Gross Description A. Urine, Voided, ([id number]): Received one ThinPrep slide for cytology. 11/29/2024 5:[address] [facility] Disclaimer Unless otherwise specified, all tissue is 10% NB formalin fixed and paraffin embedded. Technical pathology services provided by [facility] at [address] [place] [address] [address], [place] [address] (CLIA #[id number]/Sa isabel Suazo MD, Pharmacology Professor) 11/29/2024 5:[address] [facility] Tissue Urine specimen from urethra / Unknown 11/20/2024 11/22/2024 9:01 AM EST [facility] LAB PATHOLOGY ORDERABLES Final Result [facility] [address] [place] [address], documented in this encounter Visit Diagnoses Diagnosis Other microscopic hematuria documented in this encounter Care Teams Operations Agent Relationship Specialty Start Date End Date Physician, Pcp Unknown PCP - General 11/22/24 documented as of this encounter
--- OUTSIDE RECORDS SUMMARY | 2025-04-04 07:55 | XMS_ITS | Patient Health Record ---
Author Organization [facility] Address [address] [facility] [place] [address] Care Team Providers Care Stave Log Ripsaw Operator Name Role Phone John, Kartik Primary Care Provider Laney Barrera Unavailable [phone] Allergies No Known Allergies Reason For Referral No Information Medications Medication SIG (Take, Route, Frequency, Duration) Notes Start Date End Date Status Fish Oil 1000 MG 1 capsule Orally Onc e a day; Duration: 30 day(s) 08/23/2023 Active Baby Aspirin 08/23/2023 Not-Ta dora Lisinopril 10 MG Oral; Duration: 90 Days Active Tamsulosin HCl 0.4 MG Oral; Duration: 90 Days Active Ciclopirox Olamine 0.77 % 1 application Externally Twice a day; Duration: 30 days Not-Taking Eliquis Active Zetia 10 MG 1 tablet Orally Once a day; Duration: 30 day(s) 08/23/2023 Active Finasteride 5 MG Oral; Duration: 90 Days Active Social History Tobacco Use: [...] Problem Status W/U Status Risk Notes Problem Bilateral atherosclerosis of arteries of lower limbs (disorder) ([id number] ) Atherosclerosis of [place] artery of both lower extremities, with unspecified presence of clinical manifestation (I70.203) Active confirmed Q7(A), Q8(2B), Q9(1B,2 C) Vital Signs Blood pressure diastolic 70 mm Hg 02/13/2025 Height 5 ft 11 in in 02/13/2025 Blood pressure systolic 116 mm Hg 02/13/2025 Weight 235 lbs 02/13/2025 BMI 32.77 kg/m2 02/13/2025 Encounters Encounter Location Date Provider Diagnosis [address] [address] 04/11/2024 Laney Perica Tinea unguium B35.1 ; Tinea pedis of both feet B35.3 ; Pain in right toe(s) M79.674 and Pain in left toe(s) M79.[address] [address] 07/06/2024 Laney Perica Tinea unguium B35.1 ; Tinea pedis of both feet B35.3 ; Pain in right toe(s) M79.674 and Pain in left toe(s) M79.[address] [address] 09/11/2024 Lanye Perica Atherosclerosis of [place] artery of both lower extremities, with unspecified presence of clinical manifestation I70.203 ; Tinea unguium B35.1 ; Pain in right toe(s) M79.674 and Pain in left toe(s) M79.[address] [address] 11/21/2024 Laney Perica Atherosclerosis of [place] artery of both lower extremities, with unspecified presence of clinical manifestation I70.203 ; Tinea unguium B35.1 ; Pain in right toe(s) M79.674 and Pain in left toe(s) M79.[address] [address] 02/13/2025 Laney Barrera Atherosclerosis of [place] artery of both lower extremities, with unspecified presence of clinical manifestation I70.203 ; Tinea unguium B35.1 ; Pain in right toe(s) M79.674 and Pain in left toe(s) M79.675 Assessments Encounter Date Diagnosis (ICD Code) Assessment Notes Treatment Notes Treatment Clinical Notes Section Notes 04/11/2024 Tinea unguium (ICD-10 - B35.1) 07/06/2024 Tinea unguium (ICD-10 - B35.1) 07/06/2024 Tinea pedis of both feet (ICD-10 - B35.3) 09/11/2024 Tinea unguium (ICD-10 - B35.1) 09/11/2024 Atherosclerosis of [place] artery of both lower extremities, with unspecified presence of clinical manifestation (ICD-10 - I70.203) Q7(A), Q8(2B), Q9(1B,2C) 11/21/2024 Atherosclerosis of [place] artery of both lower extremities, with unspecified presence of clinical manifestation (ICD-10 - I70.203) Q7(A), Q8(2B), Q9(1B,2C) 02/13/2025 Atherosclerosis of [place] artery of both lower extremities, with unspecified presence of clinical manifestation (ICD-10 - I70.203) Q7(A), Q8(2B), Q9(1B,2C) 02/13/2025 Tinea unguium (ICD-10 - B35.1) 11/21/2024 Tinea unguium (ICD-10 - B35.1) 09/11/2024 [...] Pain in right toe(s) (ICD-10 - M79.674) 02/13/2025 Pain in right toe(s) (ICD-10 - M79.674) 02/13/2025 Pain in left toe(s) (ICD-10 - M79.675) 11/21/2024 Pain in left toe(s) (ICD-10 - M79.675) Plan Of Treatment Next Appt Details Provider Name:Laney martinez, 05/15/2025 09:00:00 AM, [address] [place] [address], [phone], Insurance Providers Payer Name Payer Address Payer Phone Subscriber Number Group Number Insured Name Patient Relationship to Insured Coverage Start Date Coverage End Date [employer] Medicare [id number] [address] [address] [place] [address] [id number] Jon Bedoya Self - patient is the insured Medical (General) History Medical History History ICD Code Back,Hip,and Knee pain CAD (Cholesterol) Cataracts High blood pressure Osteoporosis Sciatica Measles Mumps Chicken pox Arthritis Surgical History Surgery Date(Month/Year) appendectomy wisdom teeth extraction tonsillectomy colonoscopy back surgery- under scapula Hospitalization History Reason Date(Month/Year) 3 [facility] at [facility] and 2 weeks i n rehab 04/2024
[2025-04-04 08:19] VITALS: PULSE 81; O2SAT 96; BMI 31.6
--- NOTE | 2025-04-04 08:19 | A.OFFVIS_ITS ---
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 Accompanied by: Spouse Allergies No Known Allergies Allergy (Verified 04/04/25 08:23) HPI Comments Details: 84y/o male comes for evaluation of Right sided weakness. He was seen at [facility] for back pain and right leg pain.During his exam he was found to have some Right sided weakness . 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 5 years ago he had an episode of vertigo - resolved with vestibular rehab. He denies double vision, vertigo, speech disturbances, swallowing issues, mikhail sensory loss etc. He denies any urinary incontinence He has chronic back issues - gait issues recently , feels he is dragging his right leg. In the last 5 years he had 5 falls. last fall was 1 year ago - he got up to use the bathroom - he sat on the toilet , he slumped down. He has h/o ROXY and uses CPAP. 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 Paroxysmal atrial fibrillation HTN (hypertension) ROXY on CPAP Obesity Family History Father Heart attack Mother Heart attack Social History Housing: House Alcohol intake: current Alcohol intake frequency: 0-2 drinks per day Alcohol type: wine Patient Tobacco Use Status: Former Tobacco user Advance Directives Date on File: 02/01/22 service: Yes Current occupational status: retired Cognitive needs: Yes (walker) Hearing needs: No Vision needs: Yes (reading glasses) Physical Exam Vital Signs: Last Vital Signs Pulse 81 04/04/25 08:19 Pulse Ox 96 07/17/25 08:19 Oxygen Delivery Method Room Air 07/17/25 08:19 BMI result Body Mass Index 31.6 Const General: cooperative, comfortable, no acute distress, alert, awake and Physically active Nutritional Appearance: obese Orientation/consciousness: patient oriented x3 Limitations: ambulation with walker HEENT Head: Yes normocephalic and Yes atraumatic GI Auscultation: normal bowel sounds Neuro Other: mild facial asymmetry with enlarge dright palpebral fissure. No droop Mild Right UE weakness? 4+/5 Righte LE 4/5 Tone normal FFM decreased shantelle Gait- can walk without walker right circumduction General: patient oriented x3 and moves all extremities Cranial nerves: Yes Facial sensation intact/muscles of mastication intact, Yes Bilaterally intact EOM present, Yes Nystagmus not present, Yes Normal facial strength present, Yes Midline tongue present and Yes Ability to bilaterally elevate shoulders present Cognition (Neuro): normal cognition Motor exam (neuro): Normal motor muscle tone present throughout Deep tendon reflexes (DTR's): Right triceps reflex intensity grade: 1+, Left triceps reflex intensity grade: 1+, Rt Biceps (C5, C6): 1+, Left biceps reflex intensity grade: 1+, Right brachioradialis reflex intensity grade: 1+, Left brachioradialis reflex intensity grade: 1+, Right patellar reflex intensity grade: 0 and Left patellar reflex intensity grade: 0 Coordination: [id number] test normal Psych Appearance: grossly normal Results Reviewed Results Reviewed: Carotid Doppler- 2022 - normal MRI Brain- old left cerebellar lacunar infarct PVWM changes Assessment & Plan Assessment & Plan (1) 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
== END 2025-04-04 08:58 | disposition home or self-care (01) ==
LOC: HO.HSMS 07:53
PROVIDERS: PCP Internal Medicine; Visit Provider Psychiatry & Neurology Neurology
DX: I69.351 Hemiplegia and hemiparesis following cerebral infarction affecting right dominant side (principal)
CPT/HCPCS: 99204; G2211

== ENCOUNTER → 2025-04-04 07:52 | Outpatient (BNVA) | payer MEDICARE, SELFPAY | PROVIDERS: PCP Internal Medicine; Visit Provider Psychiatry & Neurology Neurology | DX: I69.351 Hemiplegia and hemiparesis following cerebral infarction affecting right dominant side (principal) | CPT/HCPCS: 99202 ==

== ENCOUNTER 2025-06-19 08:45 | Outpatient (AMB) | payer MEDICARE, SELFPAY ==
--- NOTE | 2025-06-19 07:47 | MHC.PC.OV ---
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: No Accompanied by: Spouse Allergies No Known Allergies Allergy (Verified 06/19/25 07:47) Medication List - Last Reconciled 06/19/25 by Jp Nj MD apixaban (Eliquis) 2.5 mg PO BID 90 days ezetimibe 10 mg PO DAILY finasteride 5 mg PO DAILY ketoconazole 2% 1 appl topical BID lisinopril 10 mg PO DAILY omega-3 fatty acids (Fish Oil Concentrate) 1,000 mg PO DAILY tamsulosin 0.4 mg PO DAILY Tobacco use date assessed: 11/28/24 Fall risk assessment: No Falls in past year Last assessed Fall Risk: 06/19/25 Dental Screening Dental Screen Date: 06/19/25 Did you have a dental visit in the last 12 months?: Yes Did you have a dental problem in the last 6 months where you did not have access to dental care?: No Was dental information given to patient?: Patient has dentist HPI HPI Comments History of Present Illness Details The patient is an 84-year-old male presenting for chronic condition management and medication review. He has a known history of atrial fibrillation, which has been managed with Eliquis. Recently, there was a discrepancy in his dosing prescription, which will be addressed during this visit. He also has hypercholesterolemia treated with Ezetimibe, hypertension managed with Lisinopril 10 mg, and benign prostatic hyperplasia (BPH) treated with Finasteride and Tamsulosin. He reports nocturnal polyuria and wakes 2 to 3 times at night, addressing this with overnight diapers. The patient has sleep apnea managed with CPAP, and he feels well-controlled with this treatment. Additionally, he has a history of stroke, leaving him with residual right-sided weakness. To manage constipation, he reports irregular bowel movements, occurring every 2 to 3 days, without a sense of bloating. The onset and progression of these conditions have been stable, with the patient maintaining independence with assistance from a walker due to a balance issue from the stroke. 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 Medical History: - Atrial Fibrillation - Hypercholesterolemia - Hypertension - Benign Prostatic Hyperplasia - Sleep Apnea - History of Stroke with Residual Weakness - Osteoarthritis of the Spine and Hips Medications: - Eliquis (Apixaban) for atrial fibrillation - Ezetimibe for hypercholesterolemia - Finasteride for benign prostatic hyperplasia - Lisinopril 10 mg for hypertension - Tamsulosin 0.4 mg for benign prostatic hyperplasia Social History: - The patient engages in daily exercises as recommended by rehabilitation - Uses a walker for balance due to weakness resulting from a stroke - Independently ambulates, with difficulty using stairs due to balance - Resides locally and does not travel out of state for winter - Appears committed to safe physical activity practices [facility] Medical History (Updated 06/19/25 @ 09:11 by Jp Nj MD) Constipation Hyperlipidemia BPH (benign prostatic hyperplasia) 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 Paroxysmal atrial fibrillation HTN (hypertension) ROXY on CPAP Obesity Family History Father Heart attack Mother Heart attack Social History Housing: House Alcohol intake: current Alcohol intake frequency: 0-2 drinks per day Alcohol type: wine Patient Tobacco Use Status: Former Tobacco user Tobacco use type: Cigarette Years Smoked: 12 years-quit when 32 years old e-Cigarette/Vaping Use: Never Used Advance Directives Date on File: 02/01/22 service: Yes Current occupational status: retired Cognitive needs: Yes (walker) Hearing needs: No Vision needs: Yes (reading glasses) Questionnaire Thrive Questionnaire Date Thrive assessed: 11/28/24 HUANG-7 AMB Questionnaire HUANG-7 Date HAUNG - 7 assessed: 11/28/24 Source: Developed by Drs. Jeison Dorado, Aide Reese, Tyrese Gil and colleagues, with an educational nahomy from [employer]. Review of Systems Const Details: - Neurological: Reports right-sided weakness - Musculoskeletal: Reports osteoarthritis in the spine and hips - Genitourinary: Reports nocturnal polyuria; Denies urinary symptoms like urgency or pain - Cardiovascular: Denies chest pain or palpitations - Respiratory: Denies shortness of breath, reports effective use of CPAP - Gastrointestinal: Reports constipation with bowel movements every 2-3 days All systems reviewed & are unremarkable except as reviewed in HPI and above Physical exam (Primary Care) Vital Signs: Last Vital Signs Temp 97.9 F 06/19/25 08:53 Pulse 84 06/19/25 08:53 Resp 17 06/19/25 08:53 BP 110/64 06/19/25 08:53 Pulse Ox 97 06/19/25 08:53 Oxygen Delivery Method Room Air 06/19/25 08:53 BMI result Body Mass Index 31.9 Tobacco/Smoking Status: Tobacco use Status Tobacco use date assessed 11/28/24 06/19/25 07:48 Patient Tobacco Use Status Former Tobacco user 06/19/25 07:48 Tobacco use type Cigarette 06/19/25 08:55 e-Cigarette/Vaping Use Never Used 06/19/25 08:55 Thrive Assessment: Date of Thrive Assessment Date Thrive assessed 11/28/24 06/19/25 07:48 Const Other: General: +Alert and oriented, Well nourished, No acute distress. Eye: Pupils are equal, round and reactive to light, Intact accommodation, Extraocular movements are intact, Normal conjunctiva, Vision unchanged. HENT: Normocephalic, Atraumatic, Tympanic membranes are clear, Normal hearing, Oral mucosa is moist, No pharyngeal erythema, Ear canals patent. Respiratory: Lungs CTA bilaterally, No wheeze, Respirations are non-labored. Cardiovascular: Regular rate, Regular rhythm, S1 auscultated, S2 auscultated, No murmur, Good pulses equal in all extremities, Normal peripheral perfusion, Right ankle slightly puffier than left, No edema. Gastrointestinal: Soft, Non-tender, Non-distended, Normal bowel sounds, No organomegaly. Musculoskeletal: Normal range of motion, Normal strength, No tenderness, No swelling, No deformity, Normal gait, Weakness noted in right leg. Integumentary: Warm, Dry, [place], Intact. Neurologic: Alert, Oriented, Normal sensory, Normal motor function, No focal defects, Cranial Nerves II-XII are grossly intact, Normal deep tendon reflexes. Psychiatric: Cooperative, Appropriate mood & affect, Normal judgment. 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 Class 1 obesity with body mass index (BMI) of 31.0 to 31.9 in adult, unspecified obesity type, unspecified whether serious comorbidity present E66.811; Z68.31 Obesity type: unspecified obesity type Obesity classification: adult class 1 (BMI 30 - 34.9) Serious obesity comorbidity presence: unspecified whether serious comorbidity present Body mass index: BMI 31.0-31.9 Benign prostatic hyperplasia with urinary frequency N40.1; R35.0 Lower urinary tract symptom presence: symptoms present Lower urinary tract symptom detail: urinary frequency Other hyperlipidemia E78.49 Hyperlipidemia type: other hyperlipidemia Constipation, unspecified constipation type K59.00 Constipation type: unspecified constipation type Assessment & Plan Assessment & Plan (1) HTN (hypertension): Comment: - Continue Lisinopril 10 mg and monitor blood pressure, which is well controlled. Code(s): I10 - Essential (primary) hypertension Category: Medical Qualifiers: Hypertension type: primary hypertension Qualified Code(s): I10 - Essential (primary) hypertension (2) Paroxysmal atrial fibrillation: Comment: - Continue Eliquis. Prescription adjusted to 5 mg twice daily for adequate anticoagulation coverage. Code(s): I48.0 - Paroxysmal atrial fibrillation Category: Medical (3) Ascending aorta enlargement: Comment: - Follows yearly with cardiology - Most recent in August 2024: 3.8cm Code(s): I77.89 - Other specified disorders of arteries and arterioles Category: Medical (4) ROXY on CPAP: Comment: He has been using CPAP with nasal pillows which is quite comfortable. He is very compliant and sleeps good with the device. 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 Code(s): E66.9 - Obesity, unspecified Category: Medical Qualifiers: Obesity type: unspecified obesity type Obesity classification: adult class 1 (BMI 30 - 34.9) Serious obesity comorbidity presence: unspecified whether serious comorbidity present Body mass index: BMI 31.0-31.9 Qualified Code(s): E66.811 - Obesity, class 1; Z68.31 - Body mass index [BMI] 31.0-31.9, adult (7) BPH (benign prostatic hyperplasia): Comment: - Continue Finasteride and Tamsulosin 0.4 mg. Educate on reducing fluid intake before bed to minimize nocturnal urination. Code(s): N40.0 - Benign prostatic hyperplasia without lower urinary tract symptoms Category: Medical Qualifiers: Lower urinary tract symptom presence: symptoms present Lower urinary tract symptom detail: urinary frequency Qualified Code(s): N40.1 - Benign prostatic hyperplasia with lower urinary tract symptoms; R35.0 - Frequency of micturition (8) Hyperlipidemia: Comment: - Continue Ezetimibe for lipid control. Code(s): E78.5 - Hyperlipidemia, unspecified Category: Medical Qualifiers: Hyperlipidemia type: other hyperlipidemia Qualified Code(s): E78.49 - Other hyperlipidemia (9) Constipation: Comment: - Start MiraLax 17g daily, titrate to effect. Recommend dietary fiber intake as a supplementary measure. Code(s): K59.00 - Constipation, unspecified Category: Medical Qualifiers: Constipation type: unspecified constipation type Qualified Code(s): K59.00 - Constipation, unspecified Plan: Health maintenance: - Annual blood work including cholesterol check and thyroid function to be scheduled in August. - Safety recommendations against walking on ice during winter due to fall risk. - Encourage consistent exercise to maintain functionality and reduce risk of cardiovascular events. - Discuss potential future need for compression stockings to manage right leg edema. Patient was informed and verbally consented to the use of an ambient scribe for clinic note documentation during this visit. Plan I discussed the need to adjust the patient's Eliquis dosage to ensure full anticoagulation coverage for atrial fibrillation. We reviewed lifestyle changes to alleviate nocturia and address constipation, including dietary modifications and MiraLax usage. Physical therapy was recommended to enhance right-sided strength, and reassurances were given regarding continued walker use for balance due to a history of stroke. The patient agreed to these interventions and will refrain from excessive walking on ice. Routine monitoring and follow-up labs are set for the coming months, with a focus on cholesterol management and general health maintenance. Orders: Orders Hemoglobin A1c 6 Months Z00.00 - Encounter for general adult medical examination without abnormal findings PT Evaluation and Treatment Today I69.351 - Hemiplegia and hemiparesis following cerebral infarction affecting right dominant side Complete Blood Count Auto Diff 6 Months Z00.00 - Encounter for general adult medical examination without abnormal findings Comprehensive Met. Panel 6 Months Z00.00 - Encounter for general adult medical examination without abnormal findings Lipid Panel 6 Months Z00.00 - Encounter for general adult medical examination without abnormal findings TSH reflex Free T4 6 Months Z00.00 - Encounter for general adult medical examination without abnormal findings Medications: New apixaban 5 mg PO BID 180 tabs 2RF 90 days polyethylene glycol 3350 (Miralax) 17 grams PO DAILY 510 grams 0RF Discontinued apixaban (Eliquis) Discontinued Reason: Doctor's Order 2.5 mg PO BID 90 days 180 tabs 0RF Patient Instructions: - Take Eliquis 5 mg twice a day as updated. - Follow lifestyle changes to reduce nighttime urination, including limiting fluid intake before bed and emptying the bladder beforehand. - Use MiraLax daily as directed for constipation management. - Continue your exercise program and use your walker for stability. - Avoid walking on ice for safety. - Prepare for follow-up blood tests six months from now.
[2025-06-19 08:53] VITALS: BP 110/64; PULSE 84; RESP 17; TEMP 36.6; O2SAT 97; BMI 31.9
--- OUTSIDE RECORDS SUMMARY | 2025-06-19 09:20 | XMS_ITS | Patient Health Record ---
Author Organization [facility] Address [address] [place] [address] Care Team Providers Care Hand Laminator Name Role Phone John, Kartik Primary Care Provider [phone] Laney Barrera Unavailable [phone] Allergies No Known Allergies Reason For Referral No Information Medications Medication SIG (Take, Route, Frequency, Duration) Notes Start Date End Date Status Finasteride 5 MG Oral; Duration: 90 Days Active Lisinopril 10 MG Oral; Duration: 90 Days Active Ketoconazole 2 % 1 application Apply a thin layer to externally to feet, even between toes Twice a day; Duration: 30 days Active Eliquis Active Zetia 10 MG 1 tablet Orally Once a day; Duration: 30 day(s) 08/23/2023 Active Baby Aspirin 08/23/2023 Not-Ta dora Ciclopirox Olamine 0.77 % 1 application Externally Twice a day; Duration: 30 days Not-Taking Tamsulosin HCl 0.4 MG Oral; Duration: 90 Days Active Fish Oil 1000 MG 1 capsule Orally Onc e a day; Duration: 30 day(s) 08/23/2023 Active Immunizations Vaccine Route Administration Date Status Comme nts Influenza Unknown 05/20/2024 Administered Social History Tobacco Use: Social History Observation [...] (Standard) Question Answer Notes Tobacco use: Nonsmoker AUDIT-C (Standard) Question Answer Notes Did you have a drink containing alcohol in the p ast year? No Points 0 Interpretation Negative Problems Problem Type SNOMED Code ICD Code Onset Dates Problem Status W/U Status Risk Notes Problem Bilateral atherosclerosis of arteries of lower limbs (disorder) ([id number] ) Atherosclerosis of [place] artery of both lower extremities, with unspecified presence of clinical manifestation (I70.203) Active confirmed Q7(A), Q8(2B), Q9(1B,2 C) Vital Signs Blood pressure diastolic 70 mm Hg 05/15/2025 Height 5 ft 11 in in 05/15/2025 Blood pressure systolic 115 mm Hg 05/15/2025 Weight 235 lbs 05/15/2025 BMI 32.77 kg/m2 05/15/2025 Encounters Encounter Location Date Provider Diagnosis [address] [address] 07/06/2024 Laney Perica Tinea unguium B35.1 ; Tinea pedis of both feet B35.3 ; Pain in right toe(s) M79.674 and Pain in left toe(s) M79.[address] [address] 09/11/2024 Laney Perica Atherosclerosis of [place] artery of both lower extremities, with unspecified presence of clinical manifestation I70.203 ; Tinea unguium B35.1 ; Pain in right toe(s) M79.674 and Pain in left toe(s) M79.[address] [address] 11/21/2024 Laney Perica Atherosclerosis of [place] artery of both lower extremities, with unspecified presence of clinical manifestation I70.203 ; Tinea unguium B35.1 ; Pain in right toe(s) M79.674 and Pain in left toe(s) M79.[address] [address] 02/13/2025 Laney Perica Atherosclerosis of [place] artery of both lower extremities, with unspecified presence of clinical manifestation I70.203 ; Tinea unguium B35.1 ; Pain in right toe(s) M79.674 and Pain in left toe(s) M79.675 [facility] [place] [address] [place] [address] 05/15/2025 Laney Perica Atherosclerosis of [place] artery of both lower extremities, with unspecified presence of clinical manifestation I70.203 ; Tinea pedis of both feet B35.3 ; Tinea unguium B35.1 ; Pain in right toe(s) M79.674 and Pain in left toe(s) M79.675 Assessments Encounter Date Diagnosis (ICD Code) Assessment Notes Treatment Notes Treatment Clinical Notes Section Notes 07/06/2024 Tinea unguium (ICD-10 - B35.1) 07/06/2024 Tinea pedis of both feet (ICD-10 - B35.3) 09/11/2024 Tinea unguium (ICD-10 - B35.1) 09/11/2024 Atherosclerosis of [place] artery of both lower extremities, with unspecified presence of clinical manifestation (ICD-10 - I70.203) Q7(A), Q8(2B), Q9(1B,2C) 11/21/2024 Atherosclerosis of [place] artery of both lower extremities, with unspecified presence of clinical manifestation (ICD-10 - I70.203) Q7(A), Q8(2B), Q9(1B,2C) 02/13/2025 Atherosclerosis of [place] artery of both lower extremities, with unspecified presence of clinical manifestation (ICD-10 - I70.203) Q7(A), Q8(2B), Q9(1B,2C) 05/15/2025 Atherosclerosis of [place] artery of both lower extremities, with unspecified presence of clinical manifestation (ICD-10 - I70.203) Q7(A), Q8(2B), Q9(1B,2C) 05/15/2025 Tinea pedis of both feet (ICD-10 - B35.3) Patient Educated with: ATHELETE .pdf (ATHELETE .pdf) 05/15/2025 Tinea unguium (ICD-10 - B35.1) 02/13/2025 Tinea unguium (ICD-10 - B35.1) 11/21/2024 Tinea unguium (ICD-10 - B35.1) 09/11/2024 Pain in right toe(s) (ICD-10 - M79.674) 07/06/2024 Pain in right toe(s) (ICD-10 - M79.674) 07/06/2024 Pain in left toe(s) (ICD-10 - M79.675) 09/11/2024 Pain in left toe(s) (ICD-10 - M79.675) 11/21/2024 Pain in right toe(s) (ICD-10 - M79.674) 02/13/2025 Pain in right toe(s) (ICD-10 - M79.674) 05/15/2025 Pain in right toe(s) (ICD-10 - M79.674) 11/21/2024 Pain in left toe(s) (ICD-10 - M79.675) 02/13/2025 Pain in left toe(s) (ICD-10 - M79.675) 05/15/2025 Pain in left toe(s) (ICD-10 - M79.675) Plan Of Treatment Next Appt Details Provider Name:Laney martinez, 08/14/2025 09:00:00 AM, [address] [place] [address], [place], [address], Insurance Providers Payer Name Payer Address Payer Phone Subscriber Number Group Number Insured Name Patient Relationship to Insured Coverage Start Date Coverage End Date [employer] Medicare Adv-[id number] [address] [address] [place] [address] [id number] Jon Bedoya Self - patient is the insured Medical (General) History Medical History History ICD Code Back,Hip,and Knee pain CAD (Cholesterol) Cataracts High blood pressure Osteoporosis Sciatica Measles Mumps Chicken pox Arthritis Surgical History Surgery Date(Month/Year) appendectomy wisdom teeth extraction tonsillectomy colonoscopy back surgery- under [place] Hospitalization History Reason Date(Month/Year) 3 days at [facility] and 2 weeks i n rehab 04/2024
--- OUTSIDE RECORDS SUMMARY | 2025-06-19 09:20 | XMS_ITS | Clinical Summary ---
Author Organization [address] Address [address] [place] [address] Phone Care Team Providers Care Weatherseal Technician Name Role Phone Physician, Pcp Unknown Primary Care Provider Martha vailable Social History Tobacco Use Types Packs/Day Years [...] Vaccines (1 of 2) 1990 RSV Immunization Adult Patie nts (1 - 1-dose 75+ series) 12/23/2015 Depression Screening 09/19/2024 Cholesterol Screening (Lipid Panel) 11/22/2024 Falls Risk Assessment 11/22/2024 Medicare Annual Wellness Visit 11/22/2024 Social Influencers of Health Screening 11/22/2024 COVID-19 Vaccine (1 - 2023-2 5 season) 2025 Influenza Vaccine (#1) 2025 HIB Vaccines Aged Out No longer eligi [...] age to complete this topic Meningococcal B Vaccine Aged Out No l onger eligible based on patient's age to complete this topic RSV Immunization Patients Un carmen 20 months Aged Out No longer eligible b ased on patient's age to complete this topic Varicella Vaccines Aged Out No longer eligible based on patient's age to complete this topic Insurance [employer] MEDICARE Care Teams Weatherseal Technician Relationship Specialty Start Date End Date Physician, Pcp Unknown PCP - General 11/22/24
--- OUTSIDE RECORDS SUMMARY | 2025-06-19 09:20 | XMS_ITS | Encounter Summary ---
Author Organization [employer] Address [address] [place] [address] Care Team Providers Care Zinc Skimmer Name Role Phone Physician, Pcp Unknown Primary Care Provider Martha vailable Encounter Details Date Type Department Care Team (Late st Contact Info) Description 11/22/2024 Lab Requisition [facility] - Main Lab [address] [facility] [place] [address] Dale Monk, RENA [address] [place] [address] Other microscopic hematuria Social History Tobacco Use [...] AM EST) Final Diagnosis A. Urine, Voided, ([id number]): Negative for high grade urothelial carcinoma. 11/29/2024 5:24 PM EDT [facility] Clinical Information Other microscopic hematuria R31.29 Urine cytology with reflex UroVysion (AUC/SHGUC) 11/29/2024 5:24 PM EDT [facility] Gross Description A. Urine, Voided, ([id number]): Received one ThinPrep slide for cytology. 11/29/2024 5:24 PM EDT [facility] Disclaimer Unless otherwise specified, all tissue is 10% NB formalin fixed and paraffin embedded. Technical pathology services provided by [facility] at [address] [place] [address] [address], [place] [address] (CLIA #[id number]/Sa isabel Suazo MD, Skating Rink Ice Maker) 11/29/2024 5:24 PM EDT [facility] Tissue Urine specimen from urethra / Unknown 11/20/2024 11/22/2024 9:01 AM EST [facility] RENA LAB PATHOLOGY ORDERABLES Final Result [facility] [address] [place] [address], documented in this encounter Visit Diagnoses Diagnosis Other microscopic hematuria documented in this encounter Care Teams Zinc Skimmer Relationship Specialty Start Date End Date Physician, Pcp Unknown PCP - General 11/22/24 documented as of this encounter
== END 2025-06-19 09:12 | disposition home or self-care (01) ==
PROVIDERS: PCP Student in an Organized Health Care Education/Training Program; Visit Provider Student in an Organized Health Care Education/Training Program
DX: I10 Essential (primary) hypertension (principal); I48.0 Paroxysmal atrial fibrillation; I77.89 Other specified disorders of arteries and arterioles; G47.33 Obstructive sleep apnea (adult) (pediatric); Z99.89 Dependence on other enabling machines and devices; I69.351 Hemiplegia and hemiparesis following cerebral infarction affecting right dominant side; E66.811 Obesity, class 1; Z68.31 Body mass index [BMI] 31.0-31.9, adult; N40.1 Benign prostatic hyperplasia with lower urinary tract symptoms; R35.0 Frequency of micturition; E78.49 Other hyperlipidemia; K59.00 Constipation, unspecified

== ENCOUNTER → 2025-06-19 08:45 | Outpatient (BNVA) | payer MEDICARE, SELFPAY | PROVIDERS: PCP Internal Medicine; Visit Provider Student in an Organized Health Care Education/Training Program | DX: I10 Essential (primary) hypertension (principal); I48.0 Paroxysmal atrial fibrillation; I77.89 Other specified disorders of arteries and arterioles; G47.33 Obstructive sleep apnea (adult) (pediatric); I69.351 Hemiplegia and hemiparesis following cerebral infarction affecting right dominant side; E66.811 Obesity, class 1; Z68.31 Body mass index [BMI] 31.0-31.9, adult; N40.1 Benign prostatic hyperplasia with lower urinary tract symptoms; R35.0 Frequency of micturition; E78.49 Other hyperlipidemia; K59.00 Constipation, unspecified; Z79.01 Long term (current) use of anticoagulants; Z79.899 Other long term (current) drug therapy; Z99.89 Dependence on other enabling machines and devices | CPT/HCPCS: 99212 ==

== ENCOUNTER 2025-07-13 15:59 | Inpatient (IN) | payer MEDICARE, SELFPAY ==
--- OUTSIDE RECORDS SUMMARY | 2024-06-29 08:30 | XMS_ITS ---
Author Organization [facility] Address [address] [place] [address] Care Team Providers Care Bilingual Sales Consultant Name Role Phone Edgar Lopez Primary Care Provider [phone] Laney Barrera Unavailable [phone] Hernandez Encounters Encounter Location Date Provider Diagnosis [address] [address] 06/29/2024 Laney Barrera Plan Of Treatment Next Appt Details Provider Name:Laney martinez, 08/14/2025 09:00:00 AM, [address] [place], [address], Progress Notes * Jon LEACH MDOB: [birth year] (84 yo M)Acc No.[id number]:06/29/2024 Progress Note Patient: Kennedy CHARLIE Jon Card Provider: Hugo Barrera DPM :1940 A ge:83 Y S ex:Male Date:06/29/2024 Address:[address] [place] [address] [facility] [id number] Pcp:Edgar Lopez Subjective: * Chief Complaints: * [...] Hugo Barrera DPM Date: Generated for Haris barton/Benjamin/Misbah on: 04:58 PM EDT
--- NOTE | ~2025-07-13 | NM_ITS ---
EXAMINATION: BONE SCAN OF THE LIMITED. CLINICAL INFORMATION: Significant back pain. Recent history of fall. COMPARISON: CT thoracic and CT lumbar spine 07/14/2025. TECHNIQUE: Multiple gamma scintillation camera images of the thoracic, lumbar and sacral spine were performed 3 hours following the intravenous administration of 34 mCi Tc-99m MDP. FINDINGS: Chest: There are multiple areas of isotope activity along the anterior left eighth through 12th ribs . No additional areas of abnormal isotope activity seen in the right anterior chest. Spine: There is no abnormal activity seen in the thoracic, lumbar or sacral spine. No abnormal activity seen in the SI joints either. NM/NM bone scan limited area IMPRESSION: No abnormal activity seen in the thoracic, lumbar or sacral spine. Pain in the back region could be musculoskeletal related. Multiple anterior left rib fractures from 8th through 12th. Likely acute to subacute . Electronically signed by: Massimo Powell MD 07/16/2025 09:05 AM EDT
--- NOTE | ~2025-07-13 | CT_ITS ---
CLINICAL HISTORY: Fall; Severe Pain; r o compression fx CT thoracic spine without contrast Comparison: CR - XR THORACIC SPINE 2V - 07/13/25 18:44 EDT Findings: Mild thoracic dextroscoliosis. No acute fractures or dislocations. Diffuse idiopathic skeletal hyperostosis. Dependent atelectasis. Right renal cysts. IMPRESSION: No acute fracture. This document has been electronically signed by: Amy Bess MD on 07/14/2025 11:58:21
--- NOTE | ~2025-07-13 | CT_ITS ---
CLINICAL HISTORY: fall, head strike, pain CT head without contrast Comparison: 05/12/2024 11:46 AM EDT: CT Findings: No intracranial mass, midline shift, hydrocephalus, or acute hemorrhage. No CT evidence of acute ischemia. Visualized paranasal sinuses and mastoid air cells reveal partially opacified ethmoid air cells bilaterally and mild mucosal thickening involving right worse than left frontal sinuses.. Orbits unremarkable. No skull fracture Impression: 1. No acute intracranial abnormalities. This document has been electronically signed by: Volodymyr Garcia MD on 07/13/2025 17:52:41
--- NOTE | ~2025-07-13 | XR_ITS ---
CLINICAL HISTORY: fall, [place] 2 views thoracic spine Comparison: None Findings: No fractures or dislocations. There is mild dextroconvex curvature of the thoracic spine. 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 Impression: 1. Evidence of DISH disease. No evidence of fracture or traumatic malalignment. This document has been electronically signed by: Volodymyr Garcia MD on 07/13/2025 19:14:15
--- NOTE | ~2025-07-13 | CT_ITS ---
CLINICAL HISTORY: Fall; Severe Pain; r o compression fx CT lumbar spine without contrast Comparison: CR - XR LUMBAR SPINE 2-3V - 07/13/25 18:42 EDT CR/SR - XR LUMBAR SPINE 2-3 VIEWS - 05/20/24 08:24 EDT Findings: Mild lumbar levoscoliosis. Age indeterminate nondisplaced fracture of the left transverse process of L2. No other acute fractures or dislocations. Multilevel degenerative changes. Aortic atherosclerosis. Bilateral renal cysts. Aortic atherosclerosis. No aneurysm. Prostatomegaly. IMPRESSION: Age indeterminate nondisplaced fracture of the left transverse process of L2. No other acute findings. This document has been electronically signed by: Amy Bess MD on 07/14/2025 12:05:46
--- NOTE | ~2025-07-13 | CT_ITS ---
CLINICAL HISTORY: fall, head strike, pain CT cervical spine without contrast Comparison: 05/12/2024 Findings: Normal limited view of the intracranial contents. Soft tissues of the neck are normal. Lung apices are normal. Normal vertebral body alignment. No fractures or dislocations. 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 Impression: 1. No cervical vertebral fracture or traumatic malalignment. This document has been electronically signed by: Volodymyr Garcia MD on 07/13/2025 17:47:53
--- NOTE | ~2025-07-13 | XR_ITS ---
CLINICAL HISTORY: fall pain 3 views lumbar spine Comparison: 05/20/2024 Findings: No fractures or dislocations. Stable vertebral body alignment, with slight levoconvex curvature of the lower lumbar spine. There is diffuse moderate vertebral body spurring, similar to prior. There is similar bilateral facet arthropathy, more significant L4-S1. Impression: 1. Similar-appearing lumbar degenerative changes as described above. This document has been electronically signed by: Volodymyr Garcia MD on 07/13/2025 19:14:25
[2025-07-13 16:03] VITALS: BP 117/56; BP 142/86; PULSE 96; RESP 18; TEMP 37.6; O2SAT 96; O2SAT 98; BMI 32.3
--- OUTSIDE RECORDS SUMMARY | 2025-07-13 16:58 | XMS_ITS | Encounter Summary ---
Author Organization [id number] Address [address] [place] [address] Care Team Providers Care Farmworker Vegetable Name Role Phone Physician, Pcp Unknown Primary Care Provider Martha vailable Encounter Details Date Type Department Care Team (Late st Contact Info) Description 11/22/2024 Lab Requisition [facility] - Main Lab [address] [facility] [place] [address] Dale Monk, RENA [address] [place] [address] Other microscopic hematuria Social History Tobacco Use [...] AM EST) Final Diagnosis A. Urine, Voided, ([id number]): Negative for high grade urothelial carcinoma. 11/29/2024 5:24 PM EDT [facility] Clinical Information Other microscopic hematuria R31.29 Urine cytology with reflex UroVysion (AUC/SHGUC) 11/29/2024 5:24 PM EDT [facility] Gross Description A. Urine, Voided, ([id number]): Received one ThinPrep slide for cytology. 11/29/2024 5:24 PM EDT [facility] Disclaimer Unless otherwise specified, all tissue is 10% NB formalin fixed and paraffin embedded. Technical pathology services provided by [facility] at [address] [place] [address] [address], [place] [address] (CLIA #[id number]/Sa isabel Suazo MD, Paper Tube Grader) 11/29/2024 5:24 PM EDT [facility] Tissue Urine specimen from urethra / Unknown 11/20/2024 11/22/2024 9:01 AM EST [facility] RENA LAB PATHOLOGY ORDERABLES Final Result [facility] [address] [place] [address], documented in this encounter Visit Diagnoses Diagnosis Other microscopic hematuria documented in this encounter Care Teams Farmworker Vegetable Relationship Specialty Start Date End Date Physician, Pcp Unknown PCP - General 11/22/24 documented as of this encounter
--- OUTSIDE RECORDS SUMMARY | 2025-07-13 16:58 | XMS_ITS | Clinical Summary ---
Author Organization [address] Address [address] [place] [address] Phone Care Team Providers Care Rn Dialysis Name Role Phone Physician, Pcp Unknown Primary [...] topic Insurance [employer] MEDICARE Care Teams Rn Dialysis Relationship Specialty Start Date End Date Physician, Pcp Unknown PCP - General 11/22/24
--- OUTSIDE RECORDS SUMMARY | 2025-07-13 16:58 | XMS_ITS | Patient Health Record ---
Author Organization [facility] Address [address] [place] [address] Care Team Providers Care Transformer Shop Supervisor Name Role Phone John, Kartik Primary Care Provider Laney Barrera Unavailable [phone] Allergies No Known Allergies Reason For Referral [...] atherosclerosis of arteries of lower limbs (disorder) ([id number] ) Atherosclerosis of [place] artery of both lower extremities, with unspecified presence of clinical manifestation (I70.203) Active confirmed Q7(A), Q8(2B), Q9(1B,2 C) Vital Signs Blood pressure diastolic 70 mm Hg 05/15/2025 Height 5 ft 11 in in 05/15/2025 Blood pressure systolic 115 mm Hg 05/15/2025 Weight 235 lbs 05/15/2025 BMI 32.77 kg/m2 05/15/2025 Encounters Encounter Location Date Provider Diagnosis [address] [address] 09/11/2024 Laney Perica Atherosclerosis of [place] artery of both lower extremities, with unspecified presence of clinical manifestation I70.203 ; Tinea unguium B35.1 ; Pain in right toe(s) M79.674 and Pain in left toe(s) M79.[address] [address] 11/21/2024 Laney Perica Atherosclerosis of [place] artery of both lower extremities, with unspecified presence of clinical manifestation I70.203 ; Tinea unguium B35.1 ; Pain in right toe(s) M79.674 and Pain in left toe(s) M79.[address] [address] 02/13/2025 Laney Perica Atherosclerosis of [place] artery of both lower extremities, with unspecified presence of clinical manifestation I70.203 ; Tinea unguium B35.1 ; Pain in right toe(s) M79.674 and Pain in left toe(s) M79.[address] [place] [address] 05/15/2025 Laney Sauravjuan Atherosclerosis of [place] artery of both lower extremities, with unspecified presence of clinical manifestation I70.203 ; Tinea pedis of both feet B35.3 ; Tinea unguium B35.1 ; Pain in right toe(s) M79.674 and Pain in left toe(s) M79.675 Assessments Encounter Date Diagnosis (ICD Code) Assessment Notes Treatment Notes Treatment Clinical Notes Section Notes 09/11/2024 Tinea unguium (ICD-10 - B35.1) 09/11/2024 Atherosclerosis of [place] artery of both lower extremities, with unspecified presence of clinical manifestation (ICD-10 - I70.203) Q7(A), Q8(2B), Q9(1B,2C) 11/21/2024 Atherosclerosis of [place] artery of both lower extremities, with unspecified presence of clinical manifestation (ICD-10 - I70.203) Q7(A), Q8(2B), Q9(1B,2C) 02/13/2025 Atherosclerosis of [place] artery of both lower extremities, with unspecified presence of clinical manifestation (ICD-10 - I70.203) Q7(A), Q8(2B), Q9(1B,2C) 05/15/2025 Atherosclerosis of [place] artery of both lower extremities, with unspecified [...] Details Provider Name:Laney martinez, 08/14/2025 09:00:00 AM, [address] [place] [address], [phone], Insurance Providers Payer Name Payer Address Payer Phone Subscriber Number Group Number Insured Name Patient Relationship to Insured Coverage Start Date Coverage End Date [employer] Medicare [id number] [address] [address] [place] [address] [id number] Jon Bedoya Self - patient is the insured Medical (General) History Medical History History ICD Code Back,Hip,and Knee pain CAD (Cholesterol) Cataracts High blood pressure Osteoporosis Sciatica Measles Mumps Chicken pox Arthritis Surgical History Surgery Date(Month/Year) appendectomy wisdom teeth extraction tonsillectomy colonoscopy back surgery- under scapula Hospitalization History Reason Date(Month/Year) 3 days at [facility] and 2 weeks i n rehab 04/2024
--- NOTE | 2025-07-13 17:15 | ED.FALL ---
HPI - Fall General Chief Complaint: Fall Stated Complaint: Fall h/s -LOC. Lower back pain, +Thinners Time Seen by Provider: 07/13/25 16:49 Source: patient and EMS Mode of arrival: EMS Limitations: no limitations History of Present Illness ED Provider: Shanna Helms APRN HPI Narrative: 84-year-old male with a history of AFib on anticoagulation, hypertension, obesity, chronic back pain presents the ER after a trip and fall hitting the right side of his head on the toilet handle. Patient denies loss of consciousness. He reports lower back pain which is chronic but feels worsened after this fall. No radiation of pain. No numbness, tingling, weakness lower extremities. No numbness in the groin. No bowel or bladder incontinence. No fevers or chills. Patient arrives in a cervical collar. He denies any neck pain, headache, vomiting, vision changes. Of note patient reports a previous CVA with right-sided weakness both upper and lower. 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 Related Data Home Medications ?Medication ?Instructions ?Recorded ?Confirmed ezetimibe 10 mg tablet 10 mg PO DAILY 09/01/20 06/19/25 omega-3 fatty acids 1,000 mg 1,000 mg PO DAILY 09/01/20 06/19/25 capsule (Fish Oil Concentrate) finasteride 5 mg tablet 5 mg PO DAILY 05/12/24 06/19/25 tamsulosin 0.4 mg capsule 0.4 mg PO DAILY 05/12/24 06/19/25 ketoconazole 2 % topical cream 1 appl topical BID 06/19/25 06/19/25 Previous Rx's ?Medication ?Instructions ?Recorded lisinopril 10 mg tablet 10 mg PO DAILY #90 tabs 03/26/25 apixaban 5 mg tablet 5 mg PO BID 90 days #180 tabs 06/19/25 polyethylene glycol 3350 17 17 g PO DAILY #510 grams 06/19/25 gram/dose oral powder (Miralax) Allergies Allergy/AdvReac Type Severity Reaction Status Date / Time No Known Allergies Allergy Verified 07/13/25 16:08 Review of Systems Review of Systems: Yes all other systems are reviewed and are negative Constitutional: Constitutional: Reports no additional constitutional complaints, Denies body ache(s), Denies chills, Denies fever(s), Denies headache(s) and Denies weakness Eyes: Eyes: Reports no additional eye complaints and Denies change in vision ENT: Reports system reviewed and no additional complaints, except as documented, Denies dizziness, Denies headache(s), Denies nasal congestion, Denies nasal discharge and Denies neck pain Cardiovascular: Cardiovascular: Reports no additional cardiovascular complaints, Denies chest pain, Denies leg edema and Denies dyspnea Respiratory: Respiratory: Reports no additional respiratory complaints, Denies cough and Denies dyspnea Gastrointestinal: Gastrointestinal: Reports no additional gastrointestinal complaints, Denies abdominal pain, Denies diarrhea, Denies nausea and Denies vomiting Genitourinary: Genitourinary: Denies urinary incontinence Musculoskeletal: Musculoskeletal: Reports no additional musculoskeletal complaints, Reports back pain, Denies arthralgias, Denies joint swelling, Denies neck pain, Denies numbness and Denies tingling Integumentary/Breasts: Skin/Breast: Reports system reviewed and no additional complaints, except as docu and Denies rash Neurologic: Reports system reviewed and no additional complaints, except as documented, Denies dizziness, Denies headache(s), Denies numbness, Denies tingling and Denies weakness PMFSH Past Medical History Attestation statement: The following information was validated with the patient. Source: nursing notes reviewed Medical History Constipation Hyperlipidemia BPH (benign prostatic hyperplasia) 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 Paroxysmal atrial fibrillation HTN (hypertension) ROXY on CPAP Obesity Family History Family History Father Heart attack Mother Heart attack Social History Social History Housing: House Unable to assess alcohol history related to: Unknown Alcohol intake: current Alcohol intake frequency: 0-2 drinks per day Alcohol type: wine Patient Tobacco Use Status: Former Tobacco user Tobacco use type: Cigarette Years Smoked: 12 years-quit when 32 years old e-Cigarette/Vaping Use: Never Used Use of substances other than those prescribed or required for medical reasons: Unknown Advance Directives: Yes Advance Directives on File: Yes Advance Directives Date on File: 02/01/22 service: Yes Current occupational status: retired Cognitive needs: Yes (walker) Hearing needs: No Vision needs: Yes (reading glasses) Physical Exam Vital Signs: Vital Signs: Last Vital Signs Temp 98 F 07/13/25 21:55 Pulse 76 07/13/25 21:55 Resp 17 07/13/25 21:55 BP 109/52 L 07/13/25 21:55 Pulse Ox 97 07/13/25 21:55 O2 Del Method Room Air 07/13/25 21:55 BMI result Body Mass Index 32.3 Const: General: cooperative, healthy appearing, comfortable and no acute distress Orientation/consciousness: patient oriented x3 Limitations: no limitations HEENT: Head: Yes normal to inspection, No Dye's sign and No raccoon eyes Ears: hearing grossly normal bilaterally and TM's normal bilaterally General nose exam: Normal external nose present Face and sinus: Yes normal facial exam Mouth: Normal oral and palatal mucosa present Throat: Yes posterior oropharynx normal Eyes: General: appearance normal, both eyes and all related structures Pupils: Equal, round and reactive pupils present Neck: Other: c collar in place Neck: Yes normal visual inspection Chest: Chest palpation & inspection: normal inspection of the chest Resp: Effort & Inspection: normal respiratory effort Auscultation: clear to auscultation bilaterally Cardio: Rate: regular rate Rhythm: regular rhythm Peripheral pulses: Peripheral pulses 2+ throughout GI: Inspection: Yes normal to inspection Palpation (GI): Soft to palpation and nontender Auscultation: normal bowel sounds : General: Yes no CVA tenderness Back/Spine/Pelvis: Other: TTP over lower thoracic/upper lumbar spine with no midline tenderness, step offs or deformities Back: no CVA tenderness Thoracic/Lumbar Spine: thoracic and lumbar spine normal to inspection Skin: General skin exam: no rashes or lesions noted Neuro: Other: Speech clear Left sided weakness 5/5 Right sided weakness 3/5-baseline per patient General: patient oriented x3 and normal sensation to monofilament Cranial nerves: Yes Equal, round and reactive pupils present Cognition (Neuro): normal cognition Extrem: General: Yes normal to inspection Course Course Course Narrative: 1844-Sign out to Danna CHASE pending x-ray imaging 2005--XR thoracic spine 2V Impression: 1. Evidence of DISH disease. No evidence of fracture or traumatic malalignment. XR lumbar spine 2-3V Impression: 1. Similar-appearing lumbar degenerative changes as described above. > patient reporting continued pain. Unable to ambulate at this time. Urine malodorous will send UA. Additional pain control ordered. Will make patient PT/CM. Physician observation initiated at 20:07 2100--ED care transferred to [facility] pending PT/CM Reevaluation(s) Reevaluation #1: 10:10 PM 07/13/2025 (Jennifer CHASE): The patient was signed out to this provider at shift change. In summary the patient is an 84-year-old male with a history of chronic back pain, BPH, hyperlipidemia, hypertension, atrial fibrillation, ROXY with CPAP, and CVA with right hemiparesis presenting to the ED via EMS for evaluation after a mechanical fall tripping on an area rug in the bathroom. The patient struck the right side of his head on the toilet handle., no reported LOC but is on Eliquis for AFib. The patient is also reporting chronic low back pain. The patient was evaluated with CT head and neck which are unremarkable, x-ray of the lumbar and thoracic spine are also unremarkable. The patient was treated with Tylenol, Flexeril, lidocaine patch, and Valium, patient was placed in physician observation pending PT and case management consultation as the patient is unable to ambulate without severe pain. The patient was noted to have a malodorous urine and was signed out to this provider pending urinalysis. Upon chart review CBC and CMP were added. The patient's CBC has now resulted and shows leukocytosis of 15,000 with a neutrophilia, no anemia, electrolyte abnormality, or MAREK. The patient's urinalysis is still pending, we will encourage provision of a urinalysis to ensure no UTI contributing to symptoms. 11:12 PM 07/13/2025 (Jennifer CHASE): The patient's urinalysis tested positive for nitrites, leukocyte esterase, and greater than 50 WBCs with 4+ bacteria. The patient will have a lactic acid and blood cultures added on, we will be treated with the Rocephin and we will admit for UTI in the elderly patient with weakness, inability to ambulate, and leukocytosis. The patient does not currently meet sepsis criteria as he is normotensive without tachycardia, and has no evidence of organ dysfunction on labs. However if patient's lactic acid is elevated we will initiate a 30 cc/kg fluid bolus. Reevaluation #2: 12:16 AM 07/14/2025 (Jennifer CHASE): Following admission to the hospitalist service, per hospitalist request, the patient has been ordered for CT thoracic and lumbar spine to rule out compression fracture due to severity of pain. Medications Administered Discontinued Medications Generic Name Dose Route Start Last Admin Trade Name Angelica PRN Reason Stop Dose Admin Acetaminophen 975 mg 07/13/25 17:13 07/13/25 17:47 Acetaminophen 325 Mg Tablet PO 07/13/25 17:14 975 mg ONCE ONE Administration Cyclobenzaprine HCl 5 mg 07/13/25 19:59 07/13/25 20:11 Cyclobenzaprine Hcl 5 Mg Tablet PO 07/13/25 20:00 5 mg ONCE ONE Administration Diazepam 2.5 mg 07/13/25 17:53 07/13/25 18:24 Diazepam 10 Mg/2 Ml Cartridge IVPUSH 07/13/25 17:54 2.5 mg STAT STA Administration Lidocaine 1 patch 07/13/25 19:58 07/13/25 20:11 Lidocaine 4 % Patch Adh..Patch TRANSDERMA 07/13/25 19:59 1 patch ONCE ONE Administration Protocol Medical Decision Making Medical Decision Making MDM Narrative: 84-year-old male with a history of AFib on anticoagulation, hypertension, obesity, chronic back pain presents the ER after a trip and fall hitting the right side of his head on the toilet handle. Patient denies loss of consciousness. He reports lower back pain which is chronic but feels worsened after this fall. No radiation of pain. No numbness, tingling, weakness lower extremities. No numbness in the groin. No bowel or bladder incontinence. No fevers or chills. Patient arrives in a cervical collar. He denies any neck pain, headache, vomiting, vision changes. Of note patient reports a previous CVA with right-sided weakness both upper and lower. 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 No red flag symptoms or neuro deficits from baseline. Appears to be acute on chronic. Several visits with similar presentation. WIll obtain x-rays, give APAP/valium. Seems MS D/t head strike and AC history will obtain CT head/ct cervical spine. Differential Diagnosis Differential Diagnoses: The differential diagnosis associated with the presentation includes Head contusion, low suspicion for SAH, basilar skull fracture, cervical fracture Back pain Low suspicion for epidural abscess, cord compression, cauda equina, fracture, pyelonephritis, renal colic, retroperitoneal hemorrhage Admission/Observation Consideration of admission/observation: Escalation of care including admission/observation considered Lab Data MDM Lab Attestation statement: I reviewed the patient's lab results. 07/13/25 21:16 07/13/25 21:16 Labs: Lab Results 07/13/25 07/13/25 07/13/25 Range/Units 21:16 22:38 23:40 WBC 15.1 H (4.8-10.8) X10*3/uL RBC 5.10 (4.60-5.80) X10*6/uL Hgb 16.0 (14.0-18.0) g/dl Hct 47.9 (42.0-52.0) % MCV 93.9 (80.0-98.0) fL MCH 31.4 (27.0-33.0) pg MCHC 33.4 (31.0-36.0) g/dl RDW 13.2 (11.0-16.0) % Plt Count 148 L (160-400) X10*3/uL MPV 10.9 (9.4-12.4) fL Immature Gran % (Auto) 0.5 H (0.0-0.4) % Neut % (Auto) 88.3 H (45-73) % Lymph % (Auto) 3.4 L (20-40) % [place] % (Auto) 7.6 (2-11) % Eos % (Auto) 0.0 (0-4) % Baso % (Auto) 0.2 (0-2) % Lymph # (Auto) 0.5 L (1.2-4.9) X10*3/uL [place] # (Auto) 1.1 (0.1-1.2) X10*3/uL Eos # (Auto) 0.0 (0.0-0.4) X10*3/uL Baso # (Auto) 0.0 (0.0-0.2) X10*3/uL Abs Immat Gran (auto) 0.08 H (0.00-0.03) X10*3/uL Absolute Neuts (auto) 13.3 H (2.0-8.3) x10*3/uL Absolute Nucleated RBC 0.000 (0.0-0.012) X10*3/uL Nucleated RBC % (auto) 0.0 (0.0-0.2) /100WBC Sodium 139 (135-145) mmol/L Potassium 4.2 (3.3-5.1) mmol/L Chloride 105 (96-108) mmol/L Carbon Dioxide 24 (22-29) mmol/L Anion Gap 14 (12-20) BUN 19 H (9-16) mg/dL Creatinine 1.00 (0.5-1.4) mg/dL Estim Creat Clear Calc 69.8 Estimated GFR > 60 Random Glucose 99 (60-115) mg/dL Lactic Acid 1.4 (0.5-2.0) mmol/L Calcium 8.8 D (8.4-10.2) mg/dL Total Bilirubin 1.2 H (0.0-1.0) mg/dL AST 21 (5-37) U/L ALT 17 (0-40) U/L Alkaline Phosphatase 56 (39-117) U/L Total Protein 6.6 (6.5-8.0) g/dL Albumin 3.9 (3.5-5.0) g/dL Urine Color Yellow Urine Appearance Cloudy Urine pH 7.5 (5.0-9.0) Ur Specific [place] 1.025 (1.005-1.025) Urine Protein 30 (1+) H (Neg-Trace) mg/dL Urine Glucose (UA) Negative (Negative) mg/dL Urine Ketones Trace (Negative) mg/dL Urine Blood Negative (Negative) Urine Nitrite Positive H (Negative) Ur Leukocyte Esterase Moderate (2+) H (Negative) Urine RBC 0-2 (0-2) /HPF Urine WBC >50 H (0-5) /HPF Ur Squamous Epith Cells 0-2 (0-2) /HPF Urine Bacteria 4+ (None Seen) Hyaline Casts 0-2 (0-2) /LPF Independent Interpretation I performed an independent interpretation of an: Plain X-Ray and CT Scan Interpretation: I independently reviewed the CT scan and agree with rad report Radiology Impression Discussion of test interpretation with radiology: I have reviewed the radiologist's reading. Radiologist Impression: [address] [address] [address] Scan Report Signed Patient: Jon Bedoya MR#: [id number] : 1940 Acct:[id number] Age/Sex: 84 / M ADM Date: 07/13/25 Loc: HO.ED Attending Dr: Ordering Physician: Karin Hillman Date of Service: 07/13/25 Procedure(s): CT head/brain wo IV con Accession Number(s): [id number] cc: Karin Hillman; Jp Nj MD~ Report Number: [id number]: Total DLP = 907.00 mGy-cm Reason for Exam: fall, head strike, pain CLINICAL HISTORY: fall, head strike, pain CT head without contrast Comparison: 05/12/2024 11:46 AM EDT: CT Findings: No intracranial mass, midline shift, hydrocephalus, or acute hemorrhage. No CT evidence of acute ischemia. Visualized paranasal sinuses and mastoid air cells reveal partially opacified ethmoid air cells bilaterally and mild mucosal thickening involving right worse than left frontal sinuses.. Orbits unremarkable. No skull fracture Impression: 1. No acute intracranial abnormalities. This document has been electronically signed by: Volodymyr Garcia MD on 07/13/2025 17:52:[address] [address] [address] Scan Report Signed Patient: Jon Bedoya MR#: [id number] : 1940 Acct:[id number] Age/Sex: 84 / M ADM Date: 07/13/25 Loc: .ED Attending Dr: Ordering Physician: Karin Hillman Date of Service: 07/13/25 Procedure(s): CT cervical spine wo IV con Accession Number(s): [id number] cc: Karin Hillman; Jp Nj MD~ Report Number: [id number]: Total DLP = 676.00 mGy-cm Reason for Exam: fall, head strike, pain CLINICAL HISTORY: fall, head strike, pain CT cervical spine without contrast Comparison: 05/12/2024 Findings: Normal limited view of the intracranial contents. Soft tissues of the neck are normal. Lung apices are normal. Normal vertebral body alignment. No fractures or dislocations. 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 Impression: 1. No cervical vertebral fracture or traumatic malalignment. This document has been electronically signed by: Volodymyr Garcia MD on 07/13/2025 17:47:53 Independent Historian Clinical information obtained from an independent historian. History obtained from or confirmed by: Spouse and EMS Discharge Plan Discharge Clinical Impression: Weakness Urinary tract infection Qualifiers: Urinary tract infection type: acute cystitis Hematuria presence: without hematuria Qualified Code(s): N30.00 - Acute cystitis without hematuria Back pain Qualifiers: Back pain location: low back pain Chronicity: acute Back pain laterality: unspecified Sciatica presence: unspecified whether sciatica present Qualified Code(s): M54.50 - Low back pain, unspecified Patient Disposition: Admitted As Inpatient
[2025-07-13] MEDS: diazePAM 10 MG/2 ML CARTRIDGE 2.5 MG IVPUSH (18:24)
[2025-07-13 19:19] VITALS: BP 124/69; PULSE 83; RESP 12; TEMP 36.5; O2SAT 96
[2025-07-13] MEDS: Lidocaine 4 % Patch ADH..PATCH 1 PATCH TRANSDERMA (20:11)
[2025-07-13 21:20] LABS: MANUAL DIFF FLAG NO
[2025-07-13 21:21] LABS: Hematocrit 47.9 % (42.0-52.0); Hemoglobin 16.0 g/dl (14.0-18.0); Imm Gran Abs Auto 0.08 X10*3/uL (0.00-0.03); Imm Gran Pct Auto 0.5 % (0.0-0.4); Lymphocytes Absolute Auto 0.5 X10*3/uL (1.2-4.9); Mean Corpuscular HGB Conc 33.4 g/dl (31.0-36.0); Mean Corpuscular Hemoglobin 31.4 pg (27.0-33.0); Mean Corpuscular Volume 93.9 fL (80.0-98.0); NRBC Abs Auto 0.000 X10*3/uL (0.0-0.012); NRBC Pct Auto 0.0 /100WBC (0.0-0.2); Platelet Count 148 X10*3/uL (160-400); Red Blood Count 5.10 X10*6/uL (4.60-5.80); White Blood Count 15.1 X10*3/uL (4.8-10.8)
[2025-07-13 21:37] LABS: Alanine Aminotransferase 17 U/L (0-40); Albumin Level 3.9 g/dL (3.5-5.0); Alkaline Phosphatase 56 U/L (39-117); Anion Gap 14 (12-20); Aspartate Amino Transferase 21 U/L (5-37); Blood Urea Nitrogen 19 mg/dL (9-16); Calcium 8.8 mg/dL (8.4-10.2); Carbon Dioxide 24 mmol/L (22-29); Chloride 105 mmol/L (96-108); Creatinine Clr Calc Pharmacy 69.8; Estimated Glomerular Filt Rate > 60; Potassium 4.2 mmol/L (3.3-5.1); Sodium 139 mmol/L (135-145); Total Protein 6.6 g/dL (6.5-8.0)
[2025-07-13 21:55] VITALS: BP 109/52; PULSE 76; RESP 17; TEMP 36.6; O2SAT 97
[2025-07-13 22:45] LABS: Appearance Urine Cloudy; Glucose Urine UA Negative (Negative); PH 7.5 (5.0-9.0); Specific Gravity - Urine 1.025 (1.005-1.025); UMIC TRIGGER UACC YES
[2025-07-13 22:52] LABS: UACC Culture Trigger YES
--- NOTE | 2025-07-13 23:43 | PM.IMHP ---
History of Present Illness Date of Service: 07/13/25 Attending physician on admission: Jose Cortez Chief Complaint: fall, weakness Pt is an 84 yo male with a pmhx significant for chronic low back pain, BPH using depends, HLD, HTN, AFib on Eliquis, ROXY on CPAP and history CVA with right-sided hemiparesis and anisicoria, who presented to the ED after a fall with head strike. The patient reported that he was in the bathroom and tripped on the area rug and hit the right side of his head on the toilet handle. He was having difficulty sitting independently for EMS. He was not on the floor for an extended period of time. He takes Eliquis for AFib. At baseline he has a right-sided deficit and anisocoria due to previous CVA. Patient is complaining of mid back pain rating ti a 10/10 currently, having difficulty providing history due to his pain. He reports intermittent chronic low back pain, never this significant and never this high up on his back. He denies any dizziness, lightheadedness, chest pain, SOB, fever, chills, nausea or vomiting. No numbness or tingling. He has been unable to ambulate due to back pain. Review of Systems Constitutional: Constitutional: Denies chills, Denies fatigue and Denies headache(s) Eyes: Eyes: Denies change in vision ENT: Denies headache(s), Denies nasal congestion and Denies sore throat Cardiovascular: Cardiovascular: Denies chest pain, Denies rapid heart rate, Denies leg edema, Denies lightheadedness and Denies dyspnea Respiratory: Respiratory: Denies chest congestion, Denies cough, Denies dyspnea and Denies wheezing Gastrointestinal: Gastrointestinal: Denies abdominal pain, Denies nausea and Denies vomiting Genitourinary: Genitourinary: Denies dysuria and Denies urinary urgency Musculoskeletal: Musculoskeletal: Reports as per HPI and Reports back pain Integumentary/Breasts: Skin/Breast: Denies rash Neurologic: Denies confusion and Denies headache(s) Psychiatric: Psychiatric: Denies confusion Endocrine: Endocrine: Denies fatigue Hematologic/Lymphatic: Hematologic/Lymphatic: Denies easy bleeding and Denies easy bruising Allergic/Immunologic: Allergic/Immunologic: Denies wheezing [facility] Medical History Constipation Hyperlipidemia BPH (benign prostatic hyperplasia) 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 Paroxysmal atrial fibrillation HTN (hypertension) ROXY on CPAP Obesity Functional capacity: uses cane/walker Family History Father Heart attack Mother Heart attack Social History Housing: House Unable to assess alcohol history related to: Unknown Alcohol intake: current Alcohol intake frequency: 0-2 drinks per day Alcohol type: wine Patient Tobacco Use Status: Former Tobacco user Tobacco use type: Cigarette Years Smoked: 12 years-quit when 32 years old e-Cigarette/Vaping Use: Never Used Use of substances other than those prescribed or required for medical reasons: Unknown Advance Directives: Yes Advance Directives on File: Yes Advance Directives Date on File: 02/01/22 service: Yes Current occupational status: retired Cognitive needs: Yes (walker) Hearing needs: No Vision needs: Yes (reading glasses) Meds Allergies Allergy/AdvReac Type Severity Reaction Status Date / Time No Known Allergies Allergy Verified 07/13/25 16:08 Home Medications ?Medication ?Instructions ?Recorded ?Confirmed ?Last Taken ?Type ezetimibe 10 mg tablet 10 mg PO DAILY 09/01/20 06/19/25 05/12/24 08:00 History omega-3 fatty acids 1,000 mg 1,000 mg PO DAILY 09/01/20 06/19/25 05/12/24 08:00 History capsule (Fish Oil Concentrate) finasteride 5 mg tablet 5 mg PO DAILY 05/12/24 06/19/25 05/11/24 20:00 History tamsulosin 0.4 mg capsule 0.4 mg PO DAILY 05/12/24 06/19/25 05/11/24 20:00 History ketoconazole 2 % topical cream 1 appl topical BID 06/19/25 06/19/25 Unknown History Physical Exam Vital Signs and Narrative: Vital Signs: Last Vital Signs Temp 98 F 07/13/25 21:55 Pulse 76 07/13/25 21:55 Resp 17 07/13/25 21:55 BP 109/52 L 07/13/25 21:55 Pulse Ox 97 07/13/25 21:55 O2 Del Method Room Air 07/13/25 21:55 BMI result Body Mass Index 32.3 General: AOx3, calling out every few seconds in pain. limited history due to pain Resp: CTA bilaterally, limited exam, unable to sit upright or roll on side due to pain CVS: S1, S2, RRR GI: +BS, NT, no distention Skin: Warm, dry Neuro: Cranial nerves II-XII grossly intact bilaterally. Motor grossly intact bilaterally. sensation intact BLE and BUE. Extremities/MSK: No pitting edema. will not sit upright for examination of back due to pain. points to area on my back where pain is. ED provider exam normal aside from tenderness thoracic and lumbar spine. Psych: Appropriate affect Const: General: No confusion Orientation/consciousness: No confusion Neuro: General: No confusion Results Labs 07/13/25 21:16 07/13/25 21:16 Labs: Laboratory Results - last 24 hr 07/13/25 07/13/25 21:16 22:38 MCV 93.9 MCH 31.4 MCHC 33.4 RDW 13.2 Plt Count 148 L MPV 10.9 Immature Gran % (Auto) 0.5 H Neut % (Auto) 88.3 H Lymph % (Auto) 3.4 L [place] % (Auto) 7.6 Eos % (Auto) 0.0 Baso % (Auto) 0.2 Lymph # (Auto) 0.5 L [place] # (Auto) 1.1 Eos # (Auto) 0.0 Baso # (Auto) 0.0 Abs Immat Gran (auto) 0.08 H Absolute Neuts (auto) 13.3 H Absolute Nucleated RBC 0.000 Nucleated RBC % (auto) 0.0 Anion Gap 14 Estim Creat Clear Calc 69.8 Estimated GFR > 60 Random Glucose 99 Calcium 8.8 D Total Bilirubin 1.2 H AST 21 ALT 17 Alkaline Phosphatase 56 Total Protein 6.6 Albumin 3.9 Urine Color Yellow Urine Appearance Cloudy Urine pH 7.5 Ur Specific [place] 1.025 Urine Protein 30 (1+) H Urine Glucose (UA) Negative Urine Ketones Trace Urine Blood Negative Urine Nitrite Positive H Ur Leukocyte Esterase Moderate (2+) H Urine RBC 0-2 Urine WBC >50 H Ur Squamous Epith Cells 0-2 Urine Bacteria 4+ Hyaline Casts 0-2 Assessment and Plan (1) Intractable back pain: Status: Acute (2) Fall: Status: Acute (3) Urinary tract infection: Qualifiers: Hematuria presence: without hematuria Urinary tract infection type: acute cystitis Qualified Code(s): N30.00 - Acute cystitis without hematuria Status: Acute Plan Pt is an 84 yo male with a pmhx significant for chronic low back pain, BPH using depends, HLD, HTN, AFib on Eliquis, ROXY on CPAP and history CVA with right-sided hemiparesis and anisicoria, who presented to the ED after a fall with head strike. fall, acute on chronic back pain - MRI throacic and lumbar spine in AM - CT thoracic and lumbar spine ordered to r/o fracture - CPK normal - BUE manual BPs normal, no significant difference - PT eval - case management: lidocaine patch, cyclobenzaprine, oxycodone, dilaudid - tachycardia likely due to pain UTI, consider pyelonephritis with back pain - singular episode of tachycardia likely due to pain - ceftriaxone pending urine culture - blood cultures and lactic acid pending - follow CBC BPH - flomax, finasteride HLD - ezetimibe HTN - hold lisinopril due to soft BP Paroxysmal AFib, rate controlled - Eliquis ROXY - CPAP at bedtime Med rec pending Full code VTE prophylaxis: Eliquis Patient with weakness, fall, acute on chronic low back pain, complicated by UTI, requiring admission for at least 2 midnight stay for IV antibiotics, pain management and further evaluation. Quality Stroke Does the patient have a stroke diagnosis?: No VTE Prior VTE?: No VTE Risk Level:: Medical - moderate - high VTE Device Contraindication: Treatment Not Indicated VTE Drug Contraindication: N/A - Med Ordered
[2025-07-14] VITALS (8 sets, daily range): BP systolic 124–151; BP diastolic 62–83; PULSE 63–93; RESP 18; TEMP 36.1–36.9; O2SAT 93–99
[2025-07-14 06:26] LABS: Hematocrit 47.9 % (42.0-52.0); Hemoglobin 16.1 g/dl (14.0-18.0); Imm Gran Abs Auto 0.14 X10*3/uL (0.00-0.03); Imm Gran Pct Auto 0.8 % (0.0-0.4); Lymphocytes Absolute Auto 0.9 X10*3/uL (1.2-4.9); MANUAL DIFF FLAG SCAN; Mean Corpuscular HGB Conc 33.6 g/dl (31.0-36.0); Mean Corpuscular Hemoglobin 31.6 pg (27.0-33.0); Mean Corpuscular Volume 94.1 fL (80.0-98.0); NRBC Abs Auto 0.000 X10*3/uL (0.0-0.012); NRBC Pct Auto 0.0 /100WBC (0.0-0.2); Platelet Count 137 X10*3/uL (160-400); Red Blood Count 5.09 X10*6/uL (4.60-5.80); SCAN SMEAR FLAG 1; White Blood Count 18.5 X10*3/uL (4.8-10.8)
[2025-07-14 06:39] LABS: Anion Gap 13 (12-20); Blood Urea Nitrogen 18 mg/dL (9-16); Calcium 8.9 mg/dL (8.4-10.2); Carbon Dioxide 27 mmol/L (22-29); Chloride 105 mmol/L (96-108); Creatinine Clr Calc Pharmacy 69.1; Estimated Glomerular Filt Rate > 60; Potassium 4.1 mmol/L (3.3-5.1); Sodium 141 mmol/L (135-145)
[2025-07-14] MEDS: Lidocaine 4 % Patch ADH..PATCH 1 PATCH TRANSDERMA (08:25)
[2025-07-14] MEDS: oxyCODONE HCl Immed Release 5 MG TABLET PO ×2 (08:25→16:46)
[2025-07-14] MEDS: 0.9 % Sodium Chloride Flush 3 ML SYRINGE IVFLUSH ×2 (08:29→16:47)
--- NOTE | 2025-07-14 09:05 | PHA.MEDREC ---
Addendum entered by Ángela Jerry RPh 07/14/25 09:30: reviewed by [facility]. Original Note: Pharmacy Consult ? Medication Reconciliation Pharmacy has completed the medication reconciliation. Confirmed medication list with patient.
--- NOTE | 2025-07-14 13:11 | HO.PM.IMPN ---
Subjective Subjective Date of Service: 07/14/25 Interval History: Continues to experience thoracic back pain radiating to his sides with movement Minimal pain at rest Denies numbness or tingling in legs or feet No nausea, vomiting, abdominal pain Denies saddle anesthesia or change in bowel or bladder habits Review of Systems Review of Systems: Yes all other systems are reviewed and are negative Physical Exam Exam: Exam: General: AOx3, uncomfortable and in pain with movement Resp: CTA bilaterally CVS: S1, S2, RRR GI: +BS, NT, no distention Back: Limited mobility secondary to pain. Unable to properly exam due to pt's pain and limited mobility Skin: Warm, dry Neuro: Cranial nerves II-XII grossly intact bilaterally. Motor grossly intact bilaterally Extremities: No edema. Able to lift both legs weaker tones. Lower extremities neurovascularly intact. Psych: Appropriate affect Vital Signs: Vital Signs: Last Vital Signs Temp 96.9 F 07/14/25 07:12 Pulse 63 07/14/25 07:12 Resp 18 07/14/25 07:12 BP 147/67 H 07/14/25 07:12 Pulse Ox 99 07/14/25 07:12 O2 Del Method Room Air 07/14/25 07:12 BMI result Body Mass Index 32.3 Objective Data Active Medications Acetaminophen (Acetaminophen 325 Mg Tablet) 975 mg PO Q6H PRN PRN Reason: Pain, Mild 1-3,fever,headache Apixaban (Apixaban 5 Mg Tablet) 5 mg PO BID [facility] Last Admin: 07/14/25 08:24 Dose: 5 mg Documented By: EMERY Calcium Carbonate (Calcium Carbonate 750 Mg Tab.Chew) 750 mg PO Q4H PRN PRN Reason: Heartburn Cyclobenzaprine HCl (Cyclobenzaprine Hcl 5 Mg Tablet) 5 mg PO TID PRN PRN Reason: Muscle Spasm Last Admin: 07/14/25 06:31 Dose: 5 mg Documented By: CLINT Hydromorphone HCl (Hydromorphone Hcl 1 Mg/Ml Syringe) 1 mg IVPUSH Q4H PRN; Protocol PRN Reason: Pain, Severe (Pain Scale 7-10) Last Admin: 07/14/25 12:01 Dose: 1 mg Documented By: EMERY Ceftriaxone Sodium 1 gm/ (Sodium Chloride) 50 mls @ 100 mls/hr IV Q24H [facility] Lidocaine (Lidocaine 4 % Patch Adh..Patch) 1 patch TRANSDERMA DAILY [facility]; Protocol Last Admin: 07/14/25 08:25 Dose: 1 patch Documented By: EMERY Magnesium Hydroxide (Milk Of Magnesia 30 Ml Oral.Susp) 30 ml PO DAILY PRN PRN Reason: Constipation Melatonin (Melatonin 3 Mg Tablet) 6 mg PO BEDTIME PRN PRN Reason: Insomnia Ondansetron HCl (Ondansetron Hcl 4 Mg/2 Ml Vial) 4 mg IVPUSH Q8H PRN PRN Reason: Nausea and Vomiting Oxycodone HCl (Oxycodone Hcl Immed Release 5 Mg Tablet) 5 mg PO Q6H PRN PRN Reason: Pain, Moderate(Pain Scale 4-6) Last Admin: 07/14/25 08:25 Dose: 5 mg Documented By: EMERY Sodium Chloride (0.9 % Sodium Chloride Flush 3 Ml Syringe) [facility] Last Admin: 07/14/25 08:29 Dose: 3 ml Documented By: EMERY Labs 07/14/25 05:19 07/14/25 05:19 Labs: Laboratory Results - last 24 hr 07/13/25 07/13/25 07/13/25 21:16 22:38 23:40 MCV 93.9 MCH 31.4 MCHC 33.4 RDW 13.2 Plt Count 148 L MPV 10.9 Immature Gran % (Auto) 0.5 H Neut % (Auto) 88.3 H Lymph % (Auto) 3.4 L [place] % (Auto) 7.6 Eos % (Auto) 0.0 Baso % (Auto) 0.2 Lymph # (Auto) 0.5 L [place] # (Auto) 1.1 Eos # (Auto) 0.0 Baso # (Auto) 0.0 Abs Immat Gran (auto) 0.08 H Absolute Neuts (auto) 13.3 H Absolute Nucleated RBC 0.000 Nucleated RBC % (auto) 0.0 Smear Tech's Comments Anion Gap 14 Estim Creat Clear Calc 69.8 Estimated GFR > 60 Random Glucose 99 Lactic Acid 1.4 Calcium 8.8 D Total Bilirubin 1.2 H AST 21 ALT 17 Alkaline Phosphatase 56 Total Creatine Kinase 112 Total Protein 6.6 Albumin 3.9 Urine Color Yellow Urine Appearance Cloudy Urine pH 7.5 Ur Specific [place] 1.025 Urine Protein 30 (1+) H Urine Glucose (UA) Negative Urine Ketones Trace Urine Blood Negative Urine Nitrite Positive H Ur Leukocyte Esterase Moderate (2+) H Urine RBC 0-2 Urine WBC >50 H Ur Squamous Epith Cells 0-2 Urine Bacteria 4+ Hyaline Casts 0-2 07/14/25 05:19 MCV 94.1 MCH 31.6 MCHC 33.6 RDW 13.3 Plt Count 137 L MPV 10.4 Immature Gran % (Auto) 0.8 H Neut % (Auto) 85.4 H Lymph % (Auto) 4.8 L [place] % (Auto) 8.8 Eos % (Auto) 0.0 Baso % (Auto) 0.2 Lymph # (Auto) 0.9 L [place] # (Auto) 1.6 H Eos # (Auto) 0.0 Baso # (Auto) 0.0 Abs Immat Gran (auto) 0.14 H Absolute Neuts (auto) 15.8 H Absolute Nucleated RBC 0.000 Nucleated RBC % (auto) 0.0 Smear Tech's Comments VERIFIED Anion Gap 13 Estim Creat Clear Calc 69.1 Estimated GFR > 60 Random Glucose 132 H Lactic Acid Calcium 8.9 Total Bilirubin AST ALT Alkaline Phosphatase Total Creatine Kinase Total Protein Albumin Urine Color Urine Appearance Urine pH Ur Specific [place] Urine Protein Urine Glucose (UA) Urine Ketones Urine Blood Urine Nitrite Ur Leukocyte Esterase Urine RBC Urine WBC Ur Squamous Epith Cells Urine Bacteria Hyaline Casts Assessment and Plan (1) Intractable back pain: Status: Acute (2) Fall: Status: Acute Plan Pt is an 84 yo male with a pmhx significant for chronic low back pain, BPH using depends, HLD, HTN, AFib on Eliquis, ROXY on CPAP and history CVA with right-sided hemiparesis and anisicoria, who presented to the ED after a fall with head strike. fall, acute on chronic back pain - fall mechanical in nature; reports hit his right face on the toilet, no back strike - CT of head and C-spine negative for acute abnormalities, fractures, or traumatic malalignment - x-ray of thoracic and lumbar spine negative for acute fracture or traumatic malalignment, but showing evidence of DISH disease - Will get CT of thoracic and lumbar spine to r/o fracture - Hold on MRI for now - pain management: lidocaine patch, cyclobenzaprine, oxycodone, dilaudid - PT evaluation UTI, consider pyelonephritis with back pain - singular episode of tachycardia likely due to pain, not sepsis - empiric ceftriaxone pending urine culture - blood cultures and lactic acid pending - follow CBC BPH - flomax, finasteride HLD - ezetimibe HTN - continue lisinopril Paroxysmal AFib, rate controlled - Eliquis ROXY - CPAP at bedtime Med rec pending Full code VTE prophylaxis: Eliquis Pt requires continued hospitalization for additional imaging or workup of spine for possible fracture; pt also with intractable pain and unable ambulance, and will need analgesics for pain management as well as PT evaluation for safe disposition home. Quality Stroke Does the patient have a stroke diagnosis?: No VTE Prior VTE?: No VTE Risk Level:: Medical - moderate - high VTE Device Contraindication: Treatment Not Indicated VTE Drug Contraindication: N/A - Med Ordered
[2025-07-15] MEDS: 0.9 % Sodium Chloride Flush 3 ML SYRINGE IVFLUSH ×3 (00:03→14:44)
[2025-07-15 03:45] VITALS: BP 140/71; PULSE 58; RESP 16; TEMP 36.1; O2SAT 95
[2025-07-15 07:25] VITALS: BP 115/57; PULSE 62; RESP 18; TEMP 36.5; O2SAT 96
--- NOTE | 2025-07-15 07:27 | HO.PM.IMPN ---
Subjective Subjective Date of Service: 07/15/25 Interval History: Continues to experience thoracic/lumbar back pain, he says there was pain before the fall just worse pain about 4/10 now Minimal pain at rest Denies numbness or tingling in legs or feel No nausea, vomiting, abdominal pain Denies saddle anesthesia or change in bowel or bladder habits, no incontinence Review of Systems Review of Systems: Yes all other systems are reviewed and are negative Physical Exam Exam: Exam: General: AOx3, uncomfortable and in pain with movement Resp: CTA bilaterally CVS: S1, S2, RRR GI: +BS, NT, no distention Back: Limited mobility secondary to pain. Unable to properly exam due to pt's pain and limited mobility Skin: Warm, dry Neuro: Cranial nerves II-XII grossly intact bilaterally. Motor grossly intact bilaterally Extremities: No edema. Able to lift both legs weaker tones. Lower extremities neurovascularly intact. Psych: Appropriate affect Vital Signs: Vital Signs: Last Vital Signs Temp 97.7 F 07/15/25 07:25 Pulse 62 07/15/25 07:25 Resp 18 07/15/25 07:25 BP 115/57 L 07/15/25 07:25 Pulse Ox 96 07/15/25 07:25 O2 Del Method Room Air 07/15/25 07:25 BMI result Body Mass Index 32.3 Objective Data Active Medications Acetaminophen (Acetaminophen 325 Mg Tablet) 975 mg PO Q6H PRN PRN Reason: Pain, Mild 1-3,fever,headache Apixaban (Apixaban 5 Mg Tablet) 5 mg PO BID [facility] Last Admin: 07/14/25 20:31 Dose: 5 mg Documented By: AJ Calcium Carbonate (Calcium Carbonate 750 Mg Tab.Chew) 750 mg PO Q4H PRN PRN Reason: Heartburn Cyclobenzaprine HCl (Cyclobenzaprine Hcl 5 Mg Tablet) 5 mg PO TID PRN PRN Reason: Muscle Spasm Last Admin: 07/14/25 16:46 Dose: 5 mg Documented By: EMERY Ezetimibe (Ezetimibe 10 Mg Tablet) 10 mg PO DAILY [facility] Finasteride (Finasteride 5 Mg Tablet) 5 mg PO DAILY [facility] Hydromorphone HCl (Hydromorphone Hcl 1 Mg/Ml Syringe) 1 mg IVPUSH Q4H PRN; Protocol PRN Reason: Pain, Severe (Pain Scale 7-10) Last Admin: 07/15/25 05:26 Dose: 1 mg Documented By: AJ Ceftriaxone Sodium 1 gm/ (Sodium Chloride) 50 mls @ 100 mls/hr IV Q24H [facility] Last Infusion: 07/15/25 01:12 Dose: Infused Documented By: AJ Lidocaine (Lidocaine 4 % Patch Adh..Patch) 1 patch TRANSDERMA DAILY [facility]; Protocol Last Admin: 07/14/25 08:25 Dose: 1 patch Documented By: EMERY Lisinopril (Lisinopril 10 Mg Tablet) 10 mg PO DAILY [facility]; Protocol Magnesium Hydroxide (Milk Of Magnesia 30 Ml Oral.Susp) 30 ml PO DAILY PRN PRN Reason: Constipation Melatonin (Melatonin 3 Mg Tablet) 6 mg PO BEDTIME PRN PRN Reason: Insomnia Ondansetron HCl (Ondansetron Hcl 4 Mg/2 Ml Vial) 4 mg IVPUSH Q8H PRN PRN Reason: Nausea and Vomiting Oxycodone HCl (Oxycodone Hcl Immed Release 5 Mg Tablet) 5 mg PO Q6H PRN PRN Reason: Pain, Moderate(Pain Scale 4-6) Last Admin: 07/14/25 16:46 Dose: 5 mg Documented By: EMERY Polyethylene Glycol (Polyethylene Glycol 3350 17 Gm Powd.Pack) 17 gm PO DAILY PRN PRN Reason: Constipation Sodium Chloride (0.9 % Sodium Chloride Flush 3 Ml Syringe) [facility] Last Admin: 07/15/25 00:03 Dose: 3 ml Documented By: AJ Tamsulosin HCl (Tamsulosin Hcl 0.4 Mg Capsule) 0.4 mg PO DAILY [facility] Labs 07/15/25 07:57 07/14/25 05:19 Labs: Laboratory Results - last 24 hr 07/13/25 07/13/25 07/13/25 21:16 22:38 23:40 MCV 93.9 MCH 31.4 MCHC 33.4 RDW 13.2 Plt Count 148 L MPV 10.9 Immature Gran % (Auto) 0.5 H Neut % (Auto) 88.3 H Lymph % (Auto) 3.4 L [place] % (Auto) 7.6 Eos % (Auto) 0.0 Baso % (Auto) 0.2 Lymph # (Auto) 0.5 L [place] # (Auto) 1.1 Eos # (Auto) 0.0 Baso # (Auto) 0.0 Abs Immat Gran (auto) 0.08 H Absolute Neuts (auto) 13.3 H Absolute Nucleated RBC 0.000 Nucleated RBC % (auto) 0.0 Smear Tech's Comments Anion Gap 14 Estim Creat Clear Calc 69.8 Estimated GFR > 60 Random Glucose 99 Lactic Acid 1.4 Calcium 8.8 D Total Bilirubin 1.2 H AST 21 ALT 17 Alkaline Phosphatase 56 Total Creatine Kinase 112 Total Protein 6.6 Albumin 3.9 Urine Color Yellow Urine Appearance Cloudy Urine pH 7.5 Ur Specific [place] 1.025 Urine Protein 30 (1+) H Urine Glucose (UA) Negative Urine Ketones Trace Urine Blood Negative Urine Nitrite Positive H Ur Leukocyte Esterase Moderate (2+) H Urine RBC 0-2 Urine WBC >50 H Ur Squamous Epith Cells 0-2 Urine Bacteria 4+ Hyaline Casts 0-2 07/14/25 05:19 MCV 94.1 MCH 31.6 MCHC 33.6 RDW 13.3 Plt Count 137 L MPV 10.4 Immature Gran % (Auto) 0.8 H Neut % (Auto) 85.4 H Lymph % (Auto) 4.8 L [place] % (Auto) 8.8 Eos % (Auto) 0.0 Baso % (Auto) 0.2 Lymph # (Auto) 0.9 L [place] # (Auto) 1.6 H Eos # (Auto) 0.0 Baso # (Auto) 0.0 Abs Immat Gran (auto) 0.14 H Absolute Neuts (auto) 15.8 H Absolute Nucleated RBC 0.000 Nucleated RBC % (auto) 0.0 Smear Tech's Comments VERIFIED Anion Gap 13 Estim Creat Clear Calc 69.1 Estimated GFR > 60 Random Glucose 132 H Lactic Acid Calcium 8.9 Total Bilirubin AST ALT Alkaline Phosphatase Total Creatine Kinase Total Protein Albumin Urine Color Urine Appearance Urine pH Ur Specific [place] Urine Protein Urine Glucose (UA) Urine Ketones Urine Blood Urine Nitrite Ur Leukocyte Esterase Urine RBC Urine WBC Ur Squamous Epith Cells Urine Bacteria Hyaline Casts Microbiology Microbiology Results: Microbiology 07/13/25 23:48 Blood Culture - Preliminary Blood - Venous No growth after 24 hours. 07/13/25 23:40 Blood Culture - Preliminary Blood - Venous No growth after 24 hours. Assessment and Plan (1) Intractable back pain: Status: Acute (2) Fall: Status: Acute Plan Pt is an 84 yo male with a pmhx significant for chronic low back pain, BPH using depends, HLD, HTN, AFib on Eliquis, ROXY on CPAP and history CVA with right-sided hemiparesis and anisicoria, who presented to the ED after a fall with head strike. fall, acute on chronic back pain - fall mechanical in nature; reports hit his right face on the toilet, no back strike - CT of head and C-spine negative for acute abnormalities, fractures, or traumatic malalignment - x-ray of thoracic and lumbar spine negative for acute fracture or traumatic malalignment, but showing evidence of DISH disease - Will get CT of thoracic and lumbar spine to r/o fracture - Thoracic MRI today - pain management: lidocaine patch, cyclobenzaprine, oxycodone, dilaudid - PT evaluation UTI, consider pyelonephritis with back pain - singular episode of tachycardia likely due to pain, not sepsis - empiric ceftriaxone pending urine culture - blood cultures and lactic acid pending - follow CBC BPH - flomax, finasteride HLD - ezetimibe HTN - continue lisinopril Paroxysmal AFib, rate controlled - Eliquis ROXY - CPAP at bedtime Full code VTE prophylaxis: Eliquis Pt requires continued hospitalization for additional imaging or workup of spine for possible fracture; pt also with intractable pain and unable ambulance, and will need analgesics for pain management as well as PT evaluation for safe disposition home. Quality Stroke Does the patient have a stroke diagnosis?: No VTE Prior VTE?: No VTE Risk Level:: Medical - moderate - high VTE Device Contraindication: Treatment Not Indicated VTE Drug Contraindication: N/A - Med Ordered
[2025-07-15 08:18] LABS: Hematocrit 45.4 % (42.0-52.0); Hemoglobin 15.0 g/dl (14.0-18.0); Mean Corpuscular HGB Conc 33.0 g/dl (31.0-36.0); Mean Corpuscular Hemoglobin 31.1 pg (27.0-33.0); Mean Corpuscular Volume 94.2 fL (80.0-98.0); NRBC Abs Auto 0.000 X10*3/uL (0.0-0.012); NRBC Pct Auto 0.0 /100WBC (0.0-0.2); Platelet Count 145 X10*3/uL (160-400); Red Blood Count 4.82 X10*6/uL (4.60-5.80); White Blood Count 11.1 X10*3/uL (4.8-10.8)
[2025-07-15] MEDS: Lidocaine 4 % Patch ADH..PATCH 1 PATCH TRANSDERMA (10:22)
[2025-07-15 10:27] VITALS: BP 117/55
--- NOTE | 2025-07-15 11:31 | MHC.CM.PN ---
pt lives with pt is recommending str pt agrees spoke with jigar at [facility] who says [facility] not [facility]riv[facility] referrals made dc plan str
[2025-07-15] MEDS: oxyCODONE HCl Immed Release 5 MG TABLET PO (12:23)
[2025-07-15 15:13] VITALS: BP 113/62; PULSE 88; RESP 18; TEMP 37.6; O2SAT 93
[2025-07-15 19:26] VITALS: BP 124/72; PULSE 85; RESP 18; TEMP 36.4; O2SAT 94
[2025-07-15 22:40] VITALS: RESP 18
[2025-07-16 03:12] VITALS: BP 118/58; PULSE 53; RESP 16; TEMP 36.1; O2SAT 96
[2025-07-16 07:26] VITALS: BP 141/67; PULSE 54; RESP 14; TEMP 36.2; O2SAT 95
[2025-07-16] MEDS: 0.9 % Sodium Chloride Flush 3 ML SYRINGE IVFLUSH ×3 (07:34→23:41)
[2025-07-16] MEDS: Lidocaine 4 % Patch ADH..PATCH 1 PATCH TRANSDERMA (07:34)
[2025-07-16 15:52] VITALS: BP 113/56; PULSE 60; RESP 18; TEMP 36.5; O2SAT 96
--- NOTE | 2025-07-16 16:41 | HO.PM.IMPN ---
Subjective Subjective Date of Service: 07/16/25 Interval History: Patient seen and examined at bedside this morning, patient states that he has been experiencing lower back pain, awaiting MRI results, nuclear scan showed left rib fracture of 8-12 ribs. Review of Systems Review of Systems: Yes all other systems are reviewed and are negative Physical Exam Exam: Exam: General: AxOx3, No acute distress Head: AT/NC ENT: Moist mucous membranes Neck: supple CVS; RRR, S1 S2 normal Lungs: Clear bilateral breath sounds, no wheezes or crackles Abd: Soft non tender, non distended Ext: lower back pain, limited ROM MSK: moving all 4 limbs Skin: No cyanosis or edema Psych: Cooperative with exam Neurology:right sided hemiparesis Vital Signs: Vital Signs: Last Vital Signs Temp 97.7 F 07/16/25 15:52 Pulse 60 07/16/25 15:52 Resp 18 07/16/25 15:52 BP 113/56 L 07/16/25 15:52 Pulse Ox 96 07/16/25 15:52 O2 Del Method Room Air 07/16/25 15:52 BMI result Body Mass Index 32.3 Objective Data Active Medications Acetaminophen (Acetaminophen 325 Mg Tablet) 975 mg PO Q6H PRN PRN Reason: Pain, Mild 1-3,fever,headache Last Admin: 07/16/25 07:39 Dose: 975 mg Documented By: LUCINA Apixaban (Apixaban 5 Mg Tablet) 5 mg PO BID [facility] Last Admin: 07/16/25 07:33 Dose: 5 mg Documented By: LUCINA Calcium Carbonate (Calcium Carbonate 750 Mg Tab.Chew) 750 mg PO Q4H PRN PRN Reason: Heartburn Cyclobenzaprine HCl (Cyclobenzaprine Hcl 5 Mg Tablet) 5 mg PO TID PRN PRN Reason: Muscle Spasm Last Admin: 07/14/25 16:46 Dose: 5 mg Documented By: EMERY Ezetimibe (Ezetimibe 10 Mg Tablet) 10 mg PO DAILY [facility] Last Admin: 07/16/25 07:33 Dose: 10 mg Documented By: LUCINA Finasteride (Finasteride 5 Mg Tablet) 5 mg PO DAILY [facility] Last Admin: 07/16/25 07:33 Dose: 5 mg Documented By: LUCINA Hydromorphone HCl (Hydromorphone Hcl 1 Mg/Ml Syringe) 1 mg IVPUSH Q4H PRN; Protocol PRN Reason: Pain, Severe (Pain Scale 7-10) Last Admin: 07/15/25 05:26 Dose: 1 mg Documented By: AJ Ceftriaxone Sodium 1 gm/ (Sodium Chloride) 50 mls @ 100 mls/hr IV Q24H [facility] Last Infusion: 07/15/25 23:18 Dose: Infused Documented By: CHANDANA Lidocaine (Lidocaine 4 % Patch Adh..Patch) 1 patch TRANSDERMA DAILY [facility]; Protocol Last Admin: 07/16/25 07:34 Dose: 1 patch Documented By: LUCINA Lisinopril (Lisinopril 10 Mg Tablet) 10 mg PO DAILY [facility]; Protocol Last Admin: 07/16/25 07:33 Dose: 10 mg Documented By: LUCINA Magnesium Hydroxide (Milk Of Magnesia 30 Ml Oral.Susp) 30 ml PO DAILY PRN PRN Reason: Constipation Melatonin (Melatonin 3 Mg Tablet) 6 mg PO BEDTIME PRN PRN Reason: Insomnia Ondansetron HCl (Ondansetron Hcl 4 Mg/2 Ml Vial) 4 mg IVPUSH Q8H PRN PRN Reason: Nausea and Vomiting Oxycodone HCl (Oxycodone Hcl Immed Release 5 Mg Tablet) 5 mg PO Q6H PRN PRN Reason: Pain, Moderate(Pain Scale 4-6) Last Admin: 07/15/25 12:23 Dose: 5 mg Documented By: HUYEN Polyethylene Glycol (Polyethylene Glycol 3350 17 Gm Powd.Pack) 17 gm PO DAILY PRN PRN Reason: Constipation Sodium Chloride (0.9 % Sodium Chloride Flush 3 Ml Syringe) 3 ml IVFLUSH QSHIFT [facility] Last Admin: 07/16/25 15:59 Dose: 3 ml Documented By: LUCINA Tamsulosin HCl (Tamsulosin Hcl 0.4 Mg Capsule) 0.4 mg PO DAILY [facility] Last Admin: 07/16/25 07:33 Dose: 0.4 mg Documented By: LUCINA Tizanidine HCl (Tizanidine Hcl 4 Mg Tablet) 2 mg PO BID [facility] Labs 07/15/25 07:57 07/14/25 05:19 Microbiology Microbiology Results: Microbiology 07/13/25 22:38 Urine Culture - Final Urine clean catch - Clean Catch Midstream Escherichia coli 07/13/25 23:48 Blood Culture - Preliminary Blood - Venous No growth after 48 hours. 07/13/25 23:40 Blood Culture - Preliminary Blood - Venous No growth after 48 hours. Assessment and Plan (1) Paroxysmal atrial fibrillation: Status: Acute (2) Intractable back pain: Status: Acute (3) 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: Status: Acute Plan Pt is an 84 yo male with a pmhx significant for chronic low back pain, BPH using depends, HLD, HTN, AFib on Eliquis, ROXY on CPAP and history CVA with right-sided hemiparesis and anisicoria, who presented to the ED after a fall with head strike. fall, acute on chronic back pain left sided rib fractures - fall mechanical in nature; reports hit his right face on the toilet, no back strike - Thoracic CT scan with diffuse idiopathic skeletal hyperostosis, lumbar spine with nondisplaced fracture of the left transverse process of L2 - bone scan with multiple anterior left rib fractures from 8th through 12, likely acute to subacute. - Thoracic MRI pending results - pain management: lidocaine patch, cyclobenzaprine, oxycodone, dilaudid. will initiate tizanidine 2mg BID - PT evaluation UTI, consider pyelonephritis with back pain - singular episode of tachycardia likely due to pain, not sepsis - empiric ceftriaxone pending urine culture - follow CBC BPH - flomax, finasteride HLD - ezetimibe HTN - continue lisinopril Paroxysmal AFib, rate controlled - Eliquis ROXY - CPAP at bedtime Full code VTE prophylaxis: Eliquis Quality Stroke Does the patient have a stroke diagnosis?: No VTE Prior VTE?: No VTE Risk Level:: Medical - moderate - high VTE Device Contraindication: Treatment Not Indicated VTE Drug Contraindication: N/A - Med Ordered
[2025-07-16 19:58] VITALS: BP 130/70; PULSE 75; RESP 18; TEMP 36.2; O2SAT 97
[2025-07-16 23:01] VITALS: RESP 18
[2025-07-17 04:00] VITALS: BP 124/75; PULSE 56; RESP 18; TEMP 37.1; O2SAT 97
[2025-07-17 07:45] VITALS: BP 152/84; PULSE 67; RESP 18; TEMP 36.2; O2SAT 96
[2025-07-17] MEDS: Lidocaine 4 % Patch ADH..PATCH 1 PATCH TRANSDERMA (08:26)
[2025-07-17] MEDS: 0.9 % Sodium Chloride Flush 3 ML SYRINGE IVFLUSH (08:29)
[2025-07-17] MEDS: oxyCODONE HCl Immed Release 5 MG TABLET PO (08:36)
--- NOTE | 2025-07-17 12:56 | PM.DS ---
DS: Providers Provider Date of Service: 07/17/25 Date of admission: 07/13/25 23:43 Date of discharge: 07/17/25 Primary care physician: Jp Nj MD Attending physician on discharge: Rui Argueta Discharging clinician: Rui Argueta DS: Diagnosis Discharge Diagnosis (1) Paroxysmal atrial fibrillation: Status: Acute (2) Intractable back pain: Status: Acute (3) 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: Status: Acute DS: Summary Hospital Course Hospital Course: 84-year-old male with past medical history significant for chronic lower back pain, BPH, HLD, HTN, AFib, ROXY on CPAP and history of stroke with right-sided hemiparesis and esophoria who presented to the ED after fall with strike. On imaging CT scan diffuse idiopathic skeletal hyperostosis, lumbar spine with nondisplaced fracture of left transverse process of L2, bone scan with multiple anterior left rib fracture from 8-12, acute to subacute. Patient found to have UTI, with cultures positive for E coli. Patient was placed on empiric IV ceftriaxone, once cultures return, transitioned to p.o. to complete a total of 7 days. Patient to follow up with PCP, as well as MRI in outpatient setting. Patient discharged to senior living facility. fall, acute on chronic back pain, improving left sided rib fractures - fall mechanical in nature; reports hit his right face on the toilet, no back strike - Thoracic CT scan with diffuse idiopathic skeletal hyperostosis, lumbar spine with nondisplaced fracture of the left transverse process of L2 - bone scan with multiple anterior left rib fractures from 8th through 12, likely acute to subacute. - MRI to be done as outpatient - pain management: lidocaine patch, cyclobenzaprine, oxycodone, tizanidine 2mg BID UTI 2/2 E coli -s/p ceftriaxone, will convert to PO ab to complete additional 5 days. - follow CBC BPH - flomax, finasteride HLD - ezetimibe HTN - continue lisinopril Paroxysmal AFib, rate controlled - Eliquis ROXY - CPAP at bedtime Ambulatory dysfunction -PT/OT at SNF All new and continued medications were discussed in depth with the patient, and new prescriptions were given directly to patient and/or verification of the prescriptions were sent to patient's preferred pharmacy directly. All side effects were discussed. Follow-up instructions were given. Patient voiced understanding. Patient was given the opportunity ask questions and express concerns, all of which were answered to their satisfaction. Patient was instructed to follow-up with his PCP post SNF discharge. This is a summary of the patient's stay; for more complete details please see chart. More than 35 minutes was spent with patient regarding workup, diagnosis and follow-up. Time Attestation Discharge Coordination Time (in mins): over 45 minutes Quality: Safe Use of Opioids Does Pt have an Active Cancer Diagnosis on the Problem List?: No Quality: Stroke Does the patient have a stroke diagnosis?: No Physical Exam Exam: Exam: General: AxOx3, No acute distress Head: AT/NC ENT: Moist mucous membranes Neck: supple CVS; RRR, S1 S2 normal Lungs: Clear bilateral breath sounds, no wheezes or crackles Abd: Soft non tender, non distended Ext: No edema and no calf tenderness MSK: moving all 4 limbs, lower back pain Skin: No cyanosis or edema Psych: Cooperative with exam Neurology: right hemiparesis Vital Signs: Vital Signs: Last Vital Signs Temp 97.2 F 07/17/25 07:45 Pulse 67 07/17/25 07:45 Resp 18 07/17/25 07:45 BP 152/84 H 07/17/25 07:45 Pulse Ox 96 07/17/25 07:45 O2 Del Method Room Air 07/17/25 07:45 BMI result Body Mass Index 32.3 DS: Data Data Completed and Pending Labs on day of discharge: Preliminary micro results at discharge 07/13/25 23:48 Blood Culture - Preliminary Blood - Venous No growth after 48 hours. 07/13/25 23:40 Blood Culture - Preliminary Blood - Venous No growth after 48 hours. Discharge Plan Discharge Anticipated Discharge Date/Time: 07/17/25 12:38 Patient Disposition: Xfer SNF Discharge Diagnosis: mechanical fall, acute on chronic back pain, left-sided rib fractures, UTI Referrals: [facility] [Other] - 1 Week Jp Nj MD [Primary Care Provider, Internal Medicine] Discharge Medications: New polyethylene glycol 3350 17 gram Powder In Packet 17 g PO DAILY PRN (Reason: Constipation) Qty: 14 0RF tizanidine 4 mg Tablet 2 mg PO BID Qty: 10 0RF oxycodone 5 mg Tablet 5 mg PO Q6H PRN (Reason: Pain, Moderate(Pain Scale 4-6)) Qty: 15 0RF Rx Instructions: Partial Fill upon patient request. cyclobenzaprine 5 mg Tablet 5 mg PO TID PRN (Reason: Muscle Spasm) Qty: 10 0RF lidocaine [Lidocaine Pain Relief] 4 % Adhesive Patch,Medicated 1 patch transdermal DAILY Qty: 10 0RF Protocol: Apply to: Apply to: low back cefpodoxime 200 mg tablet 200 mg PO BID Qty: 10 0RF Rx Instructions: must administer with a meal/food Continued lisinopril 10 mg tablet 10 mg PO DAILY Qty: 90 1RF polyethylene glycol 3350 [Miralax] 17 gram/dose powder 17 g PO DAILY PRN (Reason: Constipation) tamsulosin 0.4 mg capsule 0.4 mg PO DAILY Qty: 30 0RF ezetimibe 10 mg tablet 10 mg PO DAILY Qty: 30 0RF finasteride 5 mg tablet 5 mg PO DAILY omega-3 fatty acids [Fish Oil Concentrate] 1,000 mg capsule 1,000 mg PO DAILY ketoconazole 2 % cream 1 appl topical BID apixaban 5 mg tablet 5 mg PO BID 90 Days Qty: 180 2RF Discharge Orders: Discharge Order (Routine); Ordered 07/17/25 Ordered By: Rui Argueta Activity on Discharge: As tolerated Stand Alone Forms: Patient Portal Discharge page Print Language: Hungarian Other Ambulatory Orders: MR lumbar spine wo con (Routine) Timeframe: 1 Week Facility: [facility] - Location: MRI Ordered By: Rui Argueta Care Plan Goals: continue to work with PT/OT, treatment for UTI Health Concerns: lower back pain, rib fractures and UTI Plan of Treatment: continue PT/OT, pain medications, muscle relaxant, MRI as outpatient Assessment: 84-year-old male with past medical history significant for chronic lower back pain, BPH, HLD, HTN, AFib, ROXY on CPAP and history of stroke with right-sided hemiparesis and esophoria who presented to the ED after fall with strike. On imaging CT scan diffuse idiopathic skeletal hyperostosis, lumbar spine with nondisplaced fracture of left transverse process of L2, bone scan with multiple anterior left rib fracture from 8-12, acute to subacute. Patient found to have UTI, with cultures positive for E coli. Patient was placed on empiric IV ceftriaxone, urine culture positive for E coli, transitioned to p.o. to complete a total of 7 days. Patient to follow up with PCP, as well as MRI in outpatient setting. Patient discharged to senior living facility. Patient Instructions: Contusion in Adults (ED), Back Pain (ED)
[2025-07-17 13:11] VITALS: BP 120/66; PULSE 77; RESP 18; TEMP 35.9; O2SAT 94
== END 2025-07-17 13:16 | disposition skilled nursing facility (03) | DRG 690 ==
LOC: HO.ED 23:15 → HO.EDOVER 23:48 → HO.S3 07-14 00:15
PROVIDERS: Physician Assistant; Student in an Organized Health Care Education/Training Program; Admitting Provider Physician Assistant; Emergency Provider Emergency Medicine Emergency Medical Services; PCP Student in an Organized Health Care Education/Training Program; Visit Provider Student in an Organized Health Care Education/Training Program
DX: N39.0 Urinary tract infection, site not specified (principal); S22.42XA Multiple fractures of ribs, left side, initial encounter for closed fracture; I69.351 Hemiplegia and hemiparesis following cerebral infarction affecting right dominant side; W19.XXXA Unspecified fall, initial encounter; B96.20 Unspecified Escherichia coli [E. coli] as the cause of diseases classified elsewhere; M54.50 Low back pain, unspecified; G89.29 Other chronic pain; M48.14 Ankylosing hyperostosis [Forestier], thoracic region; N40.0 Benign prostatic hyperplasia without lower urinary tract symptoms; E78.5 Hyperlipidemia, unspecified; I48.0 Paroxysmal atrial fibrillation; G47.33 Obstructive sleep apnea (adult) (pediatric); Z87.891 Personal history of nicotine dependence; Z79.01 Long term (current) use of anticoagulants; Z79.899 Other long term (current) drug therapy
CPT/HCPCS: 36415; 70450; 72070; 72100; 72125; 72128; 72131; 78300; 80048; 80053; 81001; 82550; 83605; 85025; 85027; 87040; 87086; 87088; 87186; 97162; 99285; A9503; J0696; J1171; J3360

== ENCOUNTER → 2025-07-13 16:33 | Outpatient (BNV) | payer MEDICARE, SELFPAY | PROVIDERS: Emergency Provider Emergency Medicine Emergency Medical Services; PCP Student in an Organized Health Care Education/Training Program; Visit Provider Radiology Diagnostic Radiology | DX: S09.90XA Unspecified injury of head, initial encounter (principal); M54.50 Low back pain, unspecified; M54.6 Pain in thoracic spine; W19.XXXA Unspecified fall, initial encounter | CPT/HCPCS: 70450; 72070; 72100; 72125 ==

== ENCOUNTER 2025-07-13 23:43 | Outpatient (BNV) | payer MEDICARE, SELFPAY | END 2025-07-15 14:08 | PROVIDERS: Admitting Provider Physician Assistant; Emergency Provider Emergency Medicine Emergency Medical Services; PCP Student in an Organized Health Care Education/Training Program; Visit Provider Radiology Diagnostic Radiology | DX: M54.9 Dorsalgia, unspecified (principal); Z91.81 History of falling | CPT/HCPCS: 78300 ==

== ENCOUNTER 2025-07-13 23:43 | Outpatient (BNV) | payer MEDICARE, SELFPAY | END 2025-07-14 00:15 | PROVIDERS: Admitting Provider Physician Assistant; Emergency Provider Emergency Medicine Emergency Medical Services; PCP Student in an Organized Health Care Education/Training Program; Visit Provider Radiology Diagnostic Radiology | DX: M54.6 Pain in thoracic spine (principal); M54.50 Low back pain, unspecified; W19.XXXA Unspecified fall, initial encounter | CPT/HCPCS: 72128; 72131 ==

== ENCOUNTER → 2025-07-13 23:43 | Outpatient (BNV) | payer MEDICARE, SELFPAY | PROVIDERS: Admitting Provider Physician Assistant; Emergency Provider Emergency Medicine Emergency Medical Services; PCP Student in an Organized Health Care Education/Training Program; Visit Provider Student in an Organized Health Care Education/Training Program | DX: M54.9 Dorsalgia, unspecified (principal); W19.XXXA Unspecified fall, initial encounter | CPT/HCPCS: 99232 ==

== ENCOUNTER 2025-07-30 08:11 | Outpatient (AMB) | payer MEDICARE, SELFPAY ==
--- OUTSIDE RECORDS SUMMARY | 2024-06-29 07:30 | XMS_ITS ---
Author Organization [facility] Address [address] [place] [address] Care Team Providers Care Vp Account Director Name Role Phone Edgar Lopez Primary Care Provider Laney Barrera Unavailable [phone] Hernandez Encounters Encounter Location Date Provider Diagnosis [address] [address] 06/29/2024 Laney Barrera Plan Of Treatment Next Appt Details Provider Name:Laney martinez, 08/14/2025 09:00:00 AM, [address] [place], [phone], Progress Notes * Jon LEACH MDOB: [birth year] (84 yo M)Acc No.[id number]:06/29/2024 Progress Note Patient: Kennedy CHARLIE Jon Card Provider: Hugo Barrera DPM :1940 A ge:83 Y S ex:Male Date:06/29/2024 Address:[address] [place] [address] [facility] [id number] Pcp:Edgar Lopez Subjective: * Chief Complaints: * [address] Hernandez. * Medical History: Objective: * Vitals: Assessment: Plan: * Treatment: * Images: * The named appointment provid er may or may not be the originator of this progress note, and it is not deemed complete until electronically signed by the appointment provider. Sign off status: Pending * Provider: Hugo Barrera DPM Date: Generated for Haris barton/Star on: 09/29/2024 08:14 AM EST
--- NOTE | 2025-07-30 07:05 | MHC.PC.OV ---
Vital Signs 07/30/25 08:20 Weight 234 lb BP 100/62 Blood Pressure Location Lt brachial Position Sitting Respiration 20 Pulse 95 Pulse Source Pulse Oximeter Temp 98.6 F Temp Source Temporal Artery Scan Pulse Oximetry (%) 97 Oxygen Delivery Method Room Air Intake Visit Reasons: d/c'd [facility] on 07/22 (see comments) Global Account Director Required: No Accompanied by: Self / Same As Patient Allergies No Known Allergies Allergy (Verified 07/30/25 07:05) Medication List - Last Reconciled 07/30/25 by Jp Nj MD apixaban 5 mg PO BID 90 days ezetimibe 10 mg PO DAILY finasteride 5 mg PO DAILY ketoconazole 2% 1 appl topical BID lisinopril 10 mg PO DAILY omega-3 fatty acids (Fish Oil Concentrate) 1,000 mg PO DAILY polyethylene glycol 3350 (Miralax) 17 grams PO DAILY PRN tamsulosin 0.4 mg PO DAILY Tobacco use date assessed: 11/28/24 Dental Screening Dental Screen Date: 06/19/25 HPI HPI Comments History of Present Illness Details The patient is an 84-year-old male presenting for follow-up after a recent fall and hospitalization. He reports falling in the bathroom after turning to grab something, hitting his shoulder and sliding down into a position from which he could not get up. His called 911, and he was hospitalized for 4 days where he underwent x-rays, a CT scan, and a bone scan. 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 CT scans of the head and cervical spine showed no fractures or other abnormalities. He reports soreness in his middle back after the fall, which he attributes to being handled by ambulance personnel. After his hospital stay, he spent 3-4 days at a rehab center where he was able to ambulate but was required to use a wheelchair for safety. Currently, he is pain-free and not taking any pain medication but notes soreness on his left side over the rib fractures when he rolls over at night. The patient has a history of urinary symptoms, for which he has been taking finasteride and tamsulosin for his prostate. He reports intermittent nocturnal incontinence resulting in soaked bedsheets, as well as episodes of urinary urgency. He has been managing this with pads on the bed. He has not seen his urologist in approximately 5 years, having only seen PAs, and previously underwent an unsuccessful experimental treatment involving a probe in his foot. His other medical history includes atrial fibrillation managed with Eliquis, hypertension, and hyperlipidemia. He was also treated for an E. coli urinary tract infection during his recent hospitalization. He is up to date on his COVID and flu vaccinations, having received them a month ago. Medical History: - Fall - Multiple rib fractures (ribs 8-12) - Nondisplaced lumbar spine fracture - Degenerative disc disease of the thoracic and lumbar spine - Atrial fibrillation - Urinary tract infection due to E. coli, treated - Urinary incontinence - Benign prostatic hyperplasia - Hypertension - Hyperlipidemia - Hospitalization for fall (4 days) - Inpatient rehabilitation (3-4 days) Medications: - Eliquis (apixaban) 5 mg twice a day for atrial fibrillation - Cefpodoxime for urinary tract infection (course completed) - Ezetimibe for cholesterol - Finasteride 5 mg for prostate - Lisinopril 10 mg once a day for blood pressure - Tamsulosin 0.4 mg for prostate Diagnostic Results: - Cervical spine CT scan: No fractures. - Head CT scan: Normal. - Lumbar spine X-ray: Showed degenerative changes. - Thoracic spine X-ray: Showed evidence of disc disease. - Thoracic spine CT scan: Normal. - Lumbar spine CT scan: Showed a nondisplaced fracture. - Bone scan: No abnormal findings; back pain attributed to musculoskeletal cause from the fall. - Urine culture (during hospitalization): Positive for E. coli. Social History: - Functional Status: The patient reports he is able to walk around by himself and does not feel he needs a walker or wheelchair, although he was required to use one for safety purposes while in rehab. 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 Paroxysmal atrial fibrillation HTN (hypertension) ROXY on CPAP Obesity Surgical History (Updated 07/29/25 @ 15:34 by Azra Kingston) History of colonoscopy (~07/21/17) Family History Father Heart attack Mother Heart attack Social History Household Members: Spouse Housing: House Do you presently have visiting nurse or other home services: No Alcohol intake: current Alcohol intake frequency: 0-2 drinks per day Alcohol type: wine Patient Tobacco Use Status: Former Tobacco user Tobacco use type: Cigarette Years Smoked: 12 years-quit when 32 years old e-Cigarette/Vaping Use: Never Used Advance Directives Date on File: 02/01/22 service: No Current occupational status: retired Cognitive needs: Yes (walker) Hearing needs: No Vision needs: Yes (reading glasses) Questionnaire PHQ-9 Over the last 2 weeks, how often have you been bothered by any of the following problems? 1. Little interest or pleasure in doing things: not at all 2. Feeling down, depressed, or hopeless: not at all 3. Trouble falling or staying asleep, or sleeping too much: not at all 4. Feeling tired or having little energy: not at all 5. Poor appetite or overeating: not at all 6. Feeling bad about yourself - or that you are a failure or have let yourself or your family down: not at all 7. Trouble concentrating on things, such as reading the newspaper or watching television: not at all 8. Moving or speaking so slowly that other people could have noticed. Or the opposite - being so fidgety or restless that you have been moving around a lot more than usual: not at all 9. Thoughts that you would be better off or of hurting yourself in some way: not at all Total score: 0 Depression Screening Interpretation: Negative Depression Screening Done: Yes Source: Developed by Drs. Jeison Dorado, Aide Reese, Tyrees Gil and colleagues, with an educational nahomy from [employer]. Thrive Questionnaire Date Thrive assessed: 07/15/25 I am a: Patient What is your living situation today?: I have a steady place to live Within the past 12 months, did the food you bought not last and you didn't have the money to get more?: Never true Within the past 12 months, did you worry whether your food would run out before you got money to buy more?: Never true Do you have trouble paying for medicines?: No Do you have trouble getting transportation to medical appointments?: No Do you have trouble paying your heating and electricity bill?: No Do you have trouble taking care of your child, family member or friend?: No Do you have trouble with day-to-day activities such as bathing, preparing meals, shopping, managing finances, etc.?: No Are you currently unemployed and looking for a job?: No Are you interested in more education?: No THRIVE Score: 0 AUDIT C Alcohol Use Questionnaire (AUDIT-C) 1. How often do you have a drink containing alcohol?: Never 3. How often do you have six or more drinks on one occasion?: Never Total Score: 0 HUANG-7 AMB Questionnaire HUANG-7 Date HUANG - 7 assessed: 07/30/25 Feeling nervous, anxious, or on edge: 0 = Not at all Not being able to stop or control worryin = Not at all Worrying too much about different things: 0 = Not at all Trouble relaxin = Not at all Being so restless that it is hard to sit still: 0 = Not at all Becoming easily annoyed or irritable: 0 = Not at all Feeling afraid as if something awful might happen: 0 = Not at all Total HUANG-7 score (0-4 normal; 5-9 mild; 10-14 moderate; 15-21 severe): 0 Source: Developed by Drs. Jeison Dorado, Aide Reese, Tyrese Gil and colleagues, with an educational nahomy from [employer]. Review of Systems Narrative - General: Reports feeling good. - Musculoskeletal: Reports soreness over the left lower ribs when rolling over at night. - Genitourinary: Reports occasional nocturia with incontinence and episodes of urinary urgency. - All other systems reviewed and are negative. All systems reviewed & are unremarkable except as reviewed in HPI and above Physical exam (Primary Care) Vital Signs: Last Vital Signs Temp 98.6 F 07/30/25 08:20 Pulse 95 07/30/25 08:20 Resp 20 07/30/25 08:20 BP 100/62 07/30/25 08:20 Pulse Ox 97 07/30/25 08:20 Oxygen Delivery Method Room Air 07/30/25 08:20 Tobacco/Smoking Status: Tobacco use Status Tobacco use date assessed 11/28/24 07/30/25 07:05 Patient Tobacco Use Status Former Tobacco user 07/30/25 07:05 Tobacco use type Cigarette 07/30/25 07:05 e-Cigarette/Vaping Use Never Used 07/30/25 07:05 Depression Screening Interpretation: Negative Thrive Assessment: Date of Thrive Assessment Date Thrive assessed 07/15/25 07/30/25 07:05 Narrative General: +Alert and oriented, Well nourished, No acute distress. Eye: Pupils are equal, round and reactive to light, Intact accommodation, Extraocular movements are intact, Normal conjunctiva, Vision unchanged. HENT: Normocephalic, Atraumatic, Tympanic membranes are clear, Normal hearing, Oral mucosa is moist, No pharyngeal erythema, Ear canals patent. Respiratory: Lungs CTA bilaterally, No wheeze, Respirations are non-labored. Cardiovascular: Regular rate, Regular rhythm, S1 auscultated, S2 auscultated, No murmur, Good pulses equal in all extremities, Normal peripheral perfusion, No edema. Gastrointestinal: Soft, Non-tender, Non-distended, Normal bowel sounds, No organomegaly. Musculoskeletal: Normal range of motion, Normal strength, No tenderness, No swelling, No deformity, Normal gait. Integumentary: Warm, Dry, [place], Intact. Neurologic: Alert, Oriented, Normal sensory, Normal motor function, No focal defects, Cranial Nerves II-XII are grossly intact, Normal deep tendon reflexes. Psychiatric: Cooperative, Appropriate mood & affect, Normal judgment. This encounter qualifies as a Level 5 (63936) follow-up visit due to the complex medical decision-making involved in managing multiple chronic conditions (atrial fibrillation, hypertension, hyperlipidemia, BPH with incontinence) alongside recent acute injuries (nondisplaced lumbar fracture, multiple rib fractures) following hospitalization. The visit required review and interpretation of hospital records, imaging reports (CT head, cervical spine, thoracic and lumbar spine, bone scan), and medication reconciliation. It also included coordination of care with urology referral, adjustment counseling to minimize fall risk, and management of anticoagulation in the context of fractures and urinary symptoms. 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 Multiple images reviewed today in the hospital including x-rays of the lumbar and thoracic spine CT scans and bone scans. We will start have multiple rib fractures with suggest a possible disc disease however bone scan was unremarkable. - Was subsequently discharged to rehab where he left against medical advice as he was able to ambulate on his own without a walker. Denies any discomfort today Code(s): W19.XXXA - Unspecified fall, initial encounter Category: Medical Qualifiers: Encounter type: sequela Qualified Code(s): W19.XXXS - Unspecified fall, sequela (2) Ribs, multiple fractures: Comment: - The patient is recovering well, is mobile, and is not taking pain medication. - He has been advised that the rib fracture pain will improve over time. - He is advised to continue avoiding medications that increase fall risk, such as oxycodone and tizanidine. Code(s): S22.49XA - Multiple fractures of ribs, unspecified side, initial encounter for closed fracture Category: Medical Qualifiers: Encounter type: initial encounter Fracture type: closed Laterality: left Qualified Code(s): S22.42XA - Multiple fractures of ribs, left side, initial encounter for closed fracture (3) Paroxysmal atrial fibrillation: Comment: - Stable. - Continue Eliquis 5 mg twice a day. Code(s): I48.0 - Paroxysmal atrial fibrillation Category: Medical (4) HTN (hypertension): Comment: - Stable. - Continue lisinopril 10 mg daily. Code(s): I10 - Essential (primary) hypertension Category: Medical Qualifiers: Hypertension type: primary hypertension Qualified Code(s): I10 - Essential (primary) hypertension (5) Ascending aorta enlargement: Comment: - Follows yearly with cardiology - Most recent in August 2024: 3.8cm Code(s): I77.89 - Other specified disorders of arteries and arterioles Category: Medical (6) Hyperlipidemia: Comment: - Stable. - Continue ezetimibe. Code(s): E78.5 - Hyperlipidemia, unspecified Category: Medical Qualifiers: Hyperlipidemia type: other hyperlipidemia Qualified Code(s): E78.49 - Other hyperlipidemia (7) BPH (benign prostatic hyperplasia): Comment: - Stable. - Continue finasteride and tamsulosin. - To be further addressed by urology. Code(s): N40.0 - Benign prostatic hyperplasia without lower urinary tract symptoms Category: Medical Qualifiers: Lower urinary tract symptom presence: symptoms present Lower urinary tract symptom detail: urinary frequency Qualified Code(s): N40.1 - Benign prostatic hyperplasia with lower urinary tract symptoms; R35.0 - Frequency of micturition (8) Urinary incontinence: Comment: - The patient reports ongoing symptoms of nocturnal incontinence and urgency, which are impacting him despite being on medications for BPH. - Behavioral changes were recommended, including decreasing fluid intake before bed and ensuring complete bladder emptying. - A referral will be placed to urology for further evaluation and management, as his previous care has not been satisfactory. Code(s): R32 - Unspecified urinary incontinence Category: Medical Qualifiers: Urinary Incontinence type: other incontinence Qualified Code(s): N39.498 - Other specified urinary incontinence (9) ROXY on CPAP: Comment: He has been using CPAP with nasal pillows which is quite comfortable. He is very compliant and sleeps good with the device. Code(s): G47.33 - Obstructive sleep apnea (adult) (pediatric); Z99.89 - Dependence on other enabling machines and devices Category: Medical Plan: Health Maintenance: - Patient has received his COVID-19 and influenza vaccinations. - Encouraged to stay active. - Blood work to be completed one week prior to next follow-up appointment. - Follow-up appointment is scheduled for December. Patient was informed and verbally consented to the use of an ambient scribe for clinic note documentation during this visit. Plan I have reviewed the patient's recent hospitalization course following a fall. We discussed the imaging findings, including the nondisplaced lumbar fracture and multiple rib fractures, and I reassured him that the associated pain will resolve with time. I advised him to avoid medications such as oxycodone and tizanidine to minimize the risk of future falls. We discussed his ongoing urinary incontinence, and I have recommended behavioral strategies, including fluid restriction before bed, and will place a referral to our urology department for further evaluation as he has not been satisfied with his current care. We reviewed his current medication list, which he is taking as prescribed. He was instructed to get lab work done a week prior to his next visit, which is scheduled for December. He confirms he is up to date on his COVID and flu shots. Orders: Referrals Urology Referral N40.1 - Benign prostatic hyperplasia with lower urinary tract symptoms, R32 - Unspecified urinary incontinence, R35.0 - Frequency of micturition Medications: Discontinued cefpodoxime must administer with a meal/food Discontinued Reason: Duplicate 200 mg PO BID 10 tabs 0RF Patient Instructions: - Continue taking your current medications as prescribed, including Eliquis, ezetimibe, finasteride, lisinopril, and tamsulosin. - Do not take old pain medications like oxycodone or muscle relaxants like tizanidine, as they can increase your risk of falling. - To help with nighttime urination, try to limit drinking fluids for 3-4 hours before bed and make sure to use the toilet right before you go to sleep. - My office will send a referral for you to see a urologist (a bladder specialist) for your urinary issues. - Be aware that the pain from your broken ribs will get better over time on its own. - Stay active as you feel comfortable doing so. - Please go to the lab to have blood work done one week before your next appointment. - Keep your next appointment with us, which is scheduled for December.
--- OUTSIDE RECORDS SUMMARY | 2025-07-30 08:14 | XMS_ITS | Clinical Summary ---
Author Organization [facility] Address [address] [place] [address] Phone Care Team Providers Care Outsole Paraffiner Name Role Phone Physician, Pcp Unknown Primary Care Provider Martha vailable Encounters Date Type Department Care Team Description 07/18/2025 Lab Requisition [facility] - Main Lab [address] [facility] [place] [address] Ashley Govea MD Essential (primary) hypertension; Benign prostatic hyperplasia without lower urinary tract symptoms from Last 3 Months Social History Tobacco [...] 5 season) 2025 Influenza Vaccine (#1) 2025 Hypertension/CHF/CAD Annual BMP Blood Test 07/18/2026 07/18/2025 HIB Vaccines Aged Out No longer eligi [...] on patient's age to complete this topic Procedures Procedure Name Priority Date/Time Associated Diagnosis Comments COMPREHENSIVE METABOLIC PANEL Routine 07/18/2025 7:05 AM EDT Essential (primary) hypertension Benign prostatic hyperplasia without lower urinary tract symptoms COMPLETE BLOOD COUNT Routine 07/18/2025 7:05 AM EDT Essential (primary) hypertension Benign prostatic hyperplasia without lower urinary tract symptoms from Last 3 Months Results * Complete blood count (07/18/2025 7:05 AM EDT) WBC 6.6 4.8 - 10.8 K/mcL LAB HEMETOLOGY METHOD 07/18/2025 9:48 AM [facility] RBC 5.10 4.50 - 5.50 M/mcL LAB HEMETOLOGY METHOD 07/18/2025 9:48 AM [facility] Hemoglobin 15.8 13.5 - 17.5 g/dL LAB HEMETOLOGY METHOD 07/18/2025 9:48 AM [facility] Hematocrit 48.2 42.0 - 54.0 % LAB HEMETOLOGY METHOD 07/18/2025 9:48 AM [facility] MCV 93.8 79.0 - 98.0 FL LAB HEMETOLOGY METHOD 07/18/2025 9:48 AM [facility] MCH 30.7 27.0 - 32.0 pcg LAB HEMETOLOGY METHOD 07/18/2025 9:48 AM EDT [facility] MCHC 32.8 32.0 - 37.0 g/dL LAB HEMETOLOGY METHOD 07/18/2025 9:48 AM EDT [facility] RDW 13.1 11.0 - 15.0 % LAB HEMETOLOGY METHOD 07/18/2025 9:48 AM EDT [facility] Platelets 190 130 - 400 K/mcL LAB HEMETOLOGY METHOD 07/18/2025 9:48 AM EDT [facility] MPV 9.9 7.0 - 11.0 FL LAB HEMETOLOGY METHOD 07/18/2025 9:48 AM EDT [facility] NRBC 0.0 <1.0 % LAB HEMETOLOGY METHOD 07/18/2025 9:48 AM EDT [facility] NRBC Absolute 0.00 <0.10 K/mcL LAB HEMETOLOGY METHOD 07/18/2025 9:48 AM EDT [facility] Blood Venous blood specimen / Unknown Venipuncture / Unknown 07/18/2025 7:05 AM EDT 07/18/2025 8:54 AM EDT us Ashley Govea MD LAB BLOOD ORDERABLES Final Resul t [facility] [address] [place] [address], * (ABNORMAL) Comprehensive metabolic panel (07/18/2025 7:05 AM EDT) Sodium 140 133 - 145 mmol/L LAB CHEMISTRY METHOD 07/18/2025 10:50 AM EDT [facility] Potassium 3.9 3.5 - 5.5 mmol/L LAB CHEMISTRY METHOD 07/18/2025 10:50 AM EDT [facility] Chloride 107 96 - 110 mmol/L LAB CHEMISTRY METHOD 07/18/2025 10:50 AM [facility] CO2 28 21 - 32 mmol/L LAB CHEMISTRY METHOD 07/18/2025 10:50 AM [facility] Anion Gap 5 3 - 11 LAB CHEMISTRY METHOD 07/18/2025 10:50 AM [facility] Glucose 97 70 - 100 mg/dL LAB CHEMISTRY METHOD 07/18/2025 10:50 AM [facility] BUN 31(H) 5 - 25 mg/dL LAB CHEMISTRY METHOD 07/18/2025 10:50 AM [facility] Creatinine 1.06 0.70 - 1.30 mg/dL LAB CHEMISTRY METHOD 07/18/2025 10:50 AM [facility] eGFR 69 >=60 mL/min/1. 73m2 LAB CHEMISTRY METHOD 07/18/2025 10:50 AM [facility] Comment:Calculation based on the Chronic Kidney Disease Epidemiology Collaboration (CKD-EPI) equation refit without adjustment for race. BUN/Creatinine Ratio 29.2 LAB CHEMISTRY METHOD 07/18/2025 10:50 AM [facility] Calcium 8.4(L) 8.5 - 10.5 mg/dL LAB CHEMISTRY METHOD 07/18/2025 10:50 AM [facility] AST (SGOT) 18 10 - 42 unit/L LAB CHEMISTRY METHOD 07/18/2025 10:50 AM [facility] ALT (SGPT) 28 10 - 60 unit/L LAB CHEMISTRY METHOD 07/18/2025 10:50 AM [facility] Alkaline Phosphatase 55 42 - 121 unit/L LAB CHEMISTRY METHOD 07/18/2025 10:50 AM [facility] Total Protein 5.9(L) 6.0 - 8.0 g/dL LAB CHEMISTRY METHOD 07/18/2025 10:50 AM [facility] Albumin 2.9(L) 3.2 - 5.0 g/dL LAB CHEMISTRY METHOD 07/18/2025 10:50 AM EDT [facility] Total Bilirubin 0.9 0.0 - 1.4 mg/dL LAB CHEMISTRY METHOD 07/18/2025 10:50 AM EDT [facility] Blood Venous blood specimen / Unknown Venipuncture / Unknown 07/18/2025 7:05 AM EDT 07/18/2025 8:54 AM EDT us Ashley Govea MD LAB BLOOD ORDERABLES Final Resul t [facility] [address] [place] [address], from Last 3 Months Insurance [employer] [place] [address] Care Teams Outsole Paraffiner Relationship Specialty Start Date End Date Physician, Pcp Unknown PCP - General 11/22/24
--- OUTSIDE RECORDS SUMMARY | 2025-07-30 08:14 | XMS_ITS | Patient Health Record ---
Author Organization [facility] Address [address] [facility] [place] [address] Care Team Providers Care Battery Stacker Name Role Phone John, Kartik Primary Care Provider Laney Barrera Unavailable [phone] Allergies No Known Allergies Reason For Referral [...] atherosclerosis of arteries of lower limbs (disorder) ([id number] ) Atherosclerosis of kiana artery of both lower extremities, with unspecified presence of clinical manifestation (I70.203) Active confirmed Q7(A), Q8(2B), Q9(1B,2 C) Vital Signs Blood pressure diastolic 70 mm Hg 05/15/2025 Height 5 ft 11 in in 05/15/2025 Blood pressure systolic 115 mm Hg 05/15/2025 Weight 235 lbs 05/15/2025 BMI 32.77 kg/m2 05/15/2025 Encounters Encounter Location Date Provider Diagnosis [address] [address] 09/11/2024 Laney Perica Atherosclerosis of kiana artery of both lower extremities, with unspecified presence of clinical manifestation I70.203 ; Tinea unguium B35.1 ; Pain in right toe(s) M79.674 and Pain in left toe(s) M79.[address] [address] 11/21/2024 Laney Perica Atherosclerosis of kiana artery of both lower extremities, with unspecified presence of clinical manifestation I70.203 ; Tinea unguium B35.1 ; Pain in right toe(s) M79.674 and Pain in left toe(s) M79.[address] [address] 02/13/2025 Laney Perica Atherosclerosis of kiana artery of both lower extremities, with unspecified presence of clinical manifestation I70.203 ; Tinea unguium B35.1 ; Pain in right toe(s) M79.674 and Pain in left toe(s) M79.[address] [place] [address] 05/15/2025 Laney Sauravjuan Atherosclerosis of kiana artery of both lower extremities, with unspecified presence of clinical manifestation I70.203 ; Tinea pedis of both feet B35.3 ; Tinea unguium B35.1 ; Pain in right toe(s) M79.674 and Pain in left toe(s) M79.675 Assessments Encounter Date Diagnosis (ICD Code) Assessment Notes Treatment Notes Treatment Clinical Notes Section Notes 09/11/2024 Tinea unguium (ICD-10 - B35.1) 09/11/2024 Atherosclerosis of kiana artery of both lower extremities, with unspecified presence of clinical manifestation (ICD-10 - I70.203) Q7(A), Q8(2B), Q9(1B,2C) 11/21/2024 Atherosclerosis of kiana artery of both lower extremities, with unspecified presence of clinical manifestation (ICD-10 - I70.203) Q7(A), Q8(2B), Q9(1B,2C) 02/13/2025 Atherosclerosis of kiana artery of both lower extremities, with unspecified presence of clinical manifestation (ICD-10 - I70.203) Q7(A), Q8(2B), Q9(1B,2C) 05/15/2025 Atherosclerosis of kiana artery of both lower extremities, with unspecified [...] Details Provider Name:Laney martinez, 08/14/2025 09:00:00 AM, [address] [place] [address], [id number], Insurance Providers Payer Name Payer Address Payer Phone Subscriber Number Group Number Insured Name Patient Relationship to Insured Coverage Start Date Coverage End Date [employer] Medicare [id number] [address] [address] [place] [address] [id number] Jon Bedoya Self - patient is the insured Medical (General) History Medical History History ICD Code Back,Hip,and Knee pain CAD (Cholesterol) Cataracts High blood pressure Osteoporosis Sciatica Measles Mumps Chicken pox Arthritis Surgical History Surgery Date(Month/Year) appendectomy wisdom teeth extraction tonsillectomy colonoscopy back surgery- under [facility] Hospitalization History Reason Date(Month/Year) 3 days at [facility] and 2 weeks i n rehab 04/2024
--- OUTSIDE RECORDS SUMMARY | 2025-07-30 08:14 | XMS_ITS | Encounter Summary ---
Author Organization [facility] Address [address] [place] [address] Care Team Providers Care Salicylic Acid Blender Name Role Phone Physician, Pcp Unknown Primary Care Provider Martha vailable Encounter Details Date Type Department Care Team (Late st Contact Info) Description 11/22/2024 Lab Requisition [facility] - Main Lab [address] [facility] [place] [address] Dale Monk, RENA [address] [place] [address] Other microscopic hematuria Social History Tobacco Use [...] AM EST) Final Diagnosis A. Urine, Voided, ([id number]): Negative for high grade urothelial carcinoma. 11/29/2024 5:24 PM EDT [facility] Clinical Information Other microscopic hematuria R31.29 Urine cytology with reflex UroVysion (AUC/SHGUC) 11/29/2024 5:24 PM EDT [facility] Gross Description A. Urine, Voided, ([id number]): Received one ThinPrep slide for cytology. 11/29/2024 5:24 PM EDT [facility] Disclaimer Unless otherwise specified, all tissue is 10% NB formalin fixed and paraffin embedded. Technical pathology services provided by [facility] at [address] [place] [address] [address], [place] [address] (CLIA #[id number]/Sa isabel Suazo MD, Customer Service Rep) 11/29/2024 5:24 PM EDT [facility] Tissue Urine specimen from urethra / Unknown 11/20/2024 11/22/2024 9:01 AM EST [facility] RENA LAB PATHOLOGY ORDERABLES Final Result [facility] [address] [place] [address], documented in this encounter Visit Diagnoses Diagnosis Other microscopic hematuria documented in this encounter Care Teams Salicylic Acid Blender Relationship Specialty Start Date End Date Physician, Pcp Unknown PCP - General 11/22/24 documented as of this encounter
--- OUTSIDE RECORDS SUMMARY | 2025-07-30 08:14 | XMS_ITS | Encounter Summary ---
Author Organization [facility] Address [address] [place] [address] Care Team Providers Care Activity Leader Name Role Phone Physician, Pcp Unknown Primary Care Provider Martha vailable Encounter Details Date Type Department Care Team (Late st Contact Info) Description 07/18/2025 Lab Requisition [facility] [address] [place] [address] Ashley Govea MD [address] [place] [address] Essential (primary) hypertension; Benign prostatic hyperplasia without lower urinary tract symptoms Social History Tobacco Use Types Packs/Day Years [...] Procedure Name Priority Date/Time Associated Diagnosis Comments COMPLETE BLOOD COUNT Routine 07/18/2025 7:05 AM EDT Essential (primary) hypertension Benign prostatic hyperplasia without lower urinary tract symptoms COMPREHENSIVE METABOLIC PANEL Routine 07/18/2025 7:05 AM EDT Essential (primary) hypertension Benign prostatic hyperplasia without lower urinary tract symptoms documented in this encounter Results * (ABNORMAL) Comprehensive metabolic panel (07/18/2025 7:05 AM EDT) Sodium 140 133 - 145 mmol/L LAB CHEMISTRY METHOD 07/18/2025 10:50 AM EDT [facility] Potassium 3.9 3.5 - 5.5 mmol/L LAB CHEMISTRY METHOD 07/18/2025 10:50 AM EDT [facility] Chloride 107 96 - 110 mmol/L LAB CHEMISTRY METHOD 07/18/2025 10:50 AM [facility] CO2 28 21 - 32 mmol/L LAB CHEMISTRY METHOD 07/18/2025 10:50 AM [facility] Anion Gap 5 3 - 11 LAB CHEMISTRY METHOD 07/18/2025 10:50 AM [facility] Glucose 97 70 - 100 mg/dL LAB CHEMISTRY METHOD 07/18/2025 10:50 AM [facility] BUN 31(H) 5 - 25 mg/dL LAB CHEMISTRY METHOD 07/18/2025 10:50 AM [facility] Creatinine 1.06 0.70 - 1.30 mg/dL LAB CHEMISTRY METHOD 07/18/2025 10:50 AM [facility] eGFR 69 >=60 mL/min/1. 73m2 LAB CHEMISTRY METHOD 07/18/2025 10:50 AM [facility] Comment:Calculation based on the Chronic Kidney Disease Epidemiology Collaboration (CKD-EPI) equation refit without adjustment for race. BUN/Creatinine Ratio 29.2 LAB CHEMISTRY METHOD 07/18/2025 10:50 AM [facility] Calcium 8.4(L) 8.5 - 10.5 mg/dL LAB CHEMISTRY METHOD 07/18/2025 10:50 AM [facility] AST (SGOT) 18 10 - 42 unit/L LAB CHEMISTRY METHOD 07/18/2025 10:50 AM [facility] ALT (SGPT) 28 10 - 60 unit/L LAB CHEMISTRY METHOD 07/18/2025 10:50 AM [facility] Alkaline Phosphatase 55 42 - 121 unit/L LAB CHEMISTRY METHOD 07/18/2025 10:50 AM [facility] Total Protein 5.9(L) 6.0 - 8.0 g/dL LAB CHEMISTRY METHOD 07/18/2025 10:50 AM [facility] Albumin 2.9(L) 3.2 - 5.0 g/dL LAB CHEMISTRY METHOD 07/18/2025 10:50 AM EDT [facility] Total Bilirubin 0.9 0.0 - 1.4 mg/dL LAB CHEMISTRY METHOD 07/18/2025 10:50 AM EDT [facility] Blood Venous blood specimen / Unknown Venipuncture / Unknown 07/18/2025 7:05 AM EDT 07/18/2025 8:54 AM EDT us Ashley Govea MD LAB BLOOD ORDERABLES Final Resul t [facility] [address] [place] [address], [place] [phone] * Complete blood count (07/18/2025 7:05 AM EDT) WBC 6.6 4.8 - 10.8 K/mcL LAB HEMETOLOGY METHOD 07/18/2025 9:48 AM EDT [facility] RBC 5.10 4.50 - 5.50 M/mcL LAB HEMETOLOGY METHOD 07/18/2025 9:48 AM EDT [facility] Hemoglobin 15.8 13.5 - 17.5 g/dL LAB HEMETOLOGY METHOD 07/18/2025 9:48 AM EDT [facility] Hematocrit 48.2 42.0 - 54.0 % LAB HEMETOLOGY METHOD 07/18/2025 9:48 AM EDT [facility] MCV 93.8 79.0 - 98.0 FL LAB HEMETOLOGY METHOD 07/18/2025 9:48 AM EDT [facility] MCH 30.7 27.0 - 32.0 pcg LAB HEMETOLOGY METHOD 07/18/2025 9:48 AM EDT [facility] MCHC 32.8 32.0 - 37.0 g/dL LAB HEMETOLOGY METHOD 07/18/2025 9:48 AM EDT [facility] RDW 13.1 11.0 - 15.0 % LAB HEMETOLOGY METHOD 07/18/2025 9:48 AM EDT [facility] Platelets 190 130 - 400 K/mcL LAB HEMETOLOGY METHOD 07/18/2025 9:48 AM EDT [facility] MPV 9.9 7.0 - 11.0 FL LAB HEMETOLOGY METHOD 07/18/2025 9:48 AM EDT [facility] NRBC 0.0 <1.0 % LAB HEMETOLOGY METHOD 07/18/2025 9:48 AM EDT [facility] NRBC Absolute 0.00 <0.10 K/mcL LAB HEMETOLOGY METHOD 07/18/2025 9:48 AM EDT [facility] Blood Venous blood specimen / Unknown Venipuncture / Unknown 07/18/2025 7:05 AM EDT 07/18/2025 8:54 AM EDT us Ashley Govea MD LAB BLOOD ORDERABLES Final Resul t [facility] [address] [place] [address], documented in this encounter Visit Diagnoses Diagnosis Essential (primary) hypertension Unspecified essential hypertension Benign prostatic hyperplasia without lower urinary tract symptoms documented in this encounter Care Teams Activity Leader Relationship Specialty Start Date End Date Physician, Pcp Unknown PCP - General 11/22/24 documented as of this encounter
[2025-07-30 08:20] VITALS: BP 100/62; PULSE 95; RESP 20; TEMP 37; O2SAT 97
== END 2025-07-30 08:39 | disposition home or self-care (01) ==
LOC: HO.HMCHD 08:11
PROVIDERS: PCP Student in an Organized Health Care Education/Training Program; Visit Provider Student in an Organized Health Care Education/Training Program
DX: W19.XXXS Unspecified fall, sequela (principal); S22.42XA Multiple fractures of ribs, left side, initial encounter for closed fracture; I48.0 Paroxysmal atrial fibrillation; I10 Essential (primary) hypertension; I77.89 Other specified disorders of arteries and arterioles; E78.49 Other hyperlipidemia; N40.1 Benign prostatic hyperplasia with lower urinary tract symptoms; R35.0 Frequency of micturition; N39.498 Other specified urinary incontinence; G47.33 Obstructive sleep apnea (adult) (pediatric); Z99.89 Dependence on other enabling machines and devices

== ENCOUNTER → 2025-07-30 08:11 | Outpatient (BNVA) | payer MEDICARE, SELFPAY | PROVIDERS: PCP Student in an Organized Health Care Education/Training Program; Visit Provider Student in an Organized Health Care Education/Training Program | DX: Z09 Encounter for follow-up examination after completed treatment for conditions other than malignant neoplasm (principal); W19.XXXS Unspecified fall, sequela; S22.49XA Multiple fractures of ribs, unspecified side, initial encounter for closed fracture; S32.030A Wedge compression fracture of third lumbar vertebra, initial encounter for closed fracture; I48.0 Paroxysmal atrial fibrillation; I10 Essential (primary) hypertension; I77.89 Other specified disorders of arteries and arterioles; E78.49 Other hyperlipidemia; N40.1 Benign prostatic hyperplasia with lower urinary tract symptoms; N39.498 Other specified urinary incontinence; G47.33 Obstructive sleep apnea (adult) (pediatric); Z99.89 Dependence on other enabling machines and devices; R35.0 Frequency of micturition | CPT/HCPCS: 99212 ==